=== PATIENT | male | born 1945 | race Caucasian/White ===

== ENCOUNTER → 2018-05-09 | Outpatient (CLI) | payer MEDICARE ==
[2018-05-10 13:52] VITALS: BMI 30.7
== END | disposition home or self-care (01) ==
LOC: LABWHC1 09:48
PROVIDERS: ATTEND Family Medicine
DX: N18.3 Chronic kidney disease, stage 3 (moderate) (principal)
CPT/HCPCS: 97802

== ENCOUNTER → 2019-08-13 | Outpatient (CLI) | payer MEDICARE ==
[2019-08-13 14:51] LABS: Basophils % (A) 0 %; Eosinophils # (A) 0.1 k/uL (0-0.7); Eosinophils % (A) 2 %; Lymphocytes # (A) 1.2 k/uL (1.0-4.8); Lymphocytes % (A) 18 %; MCH 31.1 pg (25.0-35.0); MCHC 32.6 g/dL (31.0-37.0); MCV 95.5 fL (80.0-100.0); Mean Platelet Volume 7.3; Monocytes # (A) 0.4 k/uL (0-1.0); Monocytes % (A) 6 %; Neutrophils # (A) 4.8 k/uL (1.3-7.7); Neutrophils % (A) 72 %; Platelet Count 170 k/uL (150-450); RBC 3.87 m/uL (4.30-5.90); RDW 13.2 % (11.5-15.5); WBC 6.7 k/uL (3.8-10.6)
[2019-08-13 15:05] LABS: Potassium 4.8 mmol/L (3.5-5.1)
== END | disposition home or self-care (01) ==
LOC: LABPAT 13:12
PROVIDERS: ATTEND Surgery
DX: Z01.818 Encounter for other preprocedural examination (principal)
CPT/HCPCS: 36415; 82565; 84132; 84520; 85025

== ENCOUNTER → 2019-08-15 | Day surgery (SDC) | payer MEDICARE ==
[2019-08-13 11:29] VITALS: BMI 28.5
[~2019-08-15] MED LIST: ACETAMINOPHEN TAB 500 MG TAB ONE; ACETAMINOPHEN TAB 500 MG TAB PO ONE; BUPIVACAINE (PF) 0.25% 30 ML VIAL SQ ONE; DEXAMETHASONE SOD PHOSPHATE 10 MG/ML 1 ML VIAL IV ONE; GLYCOPYRROLATE 0.2 MG/ML 2 ML VIAL ONE; HEPARIN SODIUM,PORCINE 5,000 UNIT/ML 1 ML VIAL ONE; HEPARIN SODIUM,PORCINE 5,000 UNIT/ML 1 ML VIAL SQ ONE; HYDROmorphone 0.5 MG/0.5 ML SYRINGE IVP PRN; LACTATED RINGERS 1,000 ML IV SCH; LIDOCAINE 1% (10MG/ML) FOR IV START INTRADERMA PRN; LIDOCAINE 1% INJ 10MG/ML (20 ML MDV) ONE; MINERAL OIL 1 APPLIC/ML OIL TOPICAL ONE; NALOXONE 0.4 MG/ML 1 ML VIAL IV PRN; NEOSTIGMINE 1 MG/ML 10 ML VIAL ONE; ONDANSETRON 4 MG/2 ML VIAL IVP ONE; ONDANSETRON 4 MG/2 ML VIAL ONE; PROPOFOL 10 MG/ML 20 ML VIAL IV ONE; ROCURONIUM BROMIDE 10 MG/ML 5 ML VIAL IV ONE; SODIUM CHLORIDE 0.9% 500 ML 500 ML IV ONE; SUCCINYLCHOLINE CHLORIDE 100 MG/5 ML SYR IV ONE; fentaNYL (PF) 50 MCG/ML 2 ML AMP ONE; traMADol 50 MG TAB PO PRN
[2019-08-15 12:48] VITALS: RESP 16
[2019-08-15 13:05] LABS: Glucose,Whole Blood 119 mg/dL (75-99)
--- NOTE | 2019-08-15 13:46 | P.GSHP ---
History of Present Illness H&P Date: 08/15/19 Chief Complaint: Renal failure 73-year-old male seen in the office last in March. Patient with history of progressive renal failure. He is requesting to initiate peritoneal dialysis as his dialysis technique. Patient with history of previous aortobifemoral bypass. During our previous discussion we discussed that general anesthesia and laparoscopy would be advised prior to catheter placement. Patient recently contacted the office. Spoke with family by phone. Patient scheduled for procedure today. No changes to the history and physical since seen in March. Past Medical History Past Medical History: Coronary Artery Disease (CAD), COPD, Diabetes Mellitus, Hyperlipidemia, Hypertension, Osteoarthritis (OA), Renal Disease, Thyroid Disorder Additional Past Medical History / Comment(s): end stage kidney failure, cyst in kidney, History of Any Multi-Drug Resistant Organisms: None Reported Past Surgical History: Appendectomy, Cholecystectomy, Orthopedic Surgery Additional Past Surgical History / Comment(s): Right carotid endarterectomy, AAA with femoral bypass, andi knee arthroscopy, andi cataracts Past Anesthesia/Blood Transfusion Reactions: Motion Sickness Smoking Status: Current every day smoker - Past Family History Mother Family Medical History: No Reported History Medications and Allergies Home Medications Medication Instructions Recorded Confirmed Type Aspirin 81 mg PO DAILY 01/06/15 08/13/19 History Cholecalciferol [Vitamin D3] 3,000 unit PO DAILY 01/06/15 08/13/19 History Levothyroxine Sodium [Synthroid] 25 mcg PO DAILY 01/06/15 08/13/19 History Carvedilol [Coreg] 3.125 mg PO BID 08/13/19 08/13/19 History Cyclobenzaprine [Flexeril] 10 mg PO DIRECTED PRN 08/13/19 08/13/19 History Ferrous Sulfate [Feosol] 325 mg PO DAILY 08/13/19 08/13/19 History Linagliptin [Tradjenta] 5 mg PO DAILY 08/13/19 08/13/19 History Rosuvastatin [Crestor] 20 mg PO DAILY 08/13/19 08/13/19 History amLODIPine [Norvasc] 10 mg PO DAILY 08/13/19 08/13/19 History rOPINIRole HCL [Requip XL] 4 mg PO DAILY 08/13/19 08/13/19 History Allergies Allergy/AdvReac Type Severity Reaction Status Date / Time Iodinated Contrast Media Allergy Unknown Verified 08/15/19 12:53 [Iodinated Contrast Media - IV Dye] Surgical - Exam Vital Signs Temp Pulse Resp BP Pulse Ox 97.2 F L 57 L 16 166/75 98 08/15/19 12:47 08/15/19 12:47 08/15/19 12:47 08/15/19 12:47 08/15/19 12:47 Physical exam: General: Well-developed, well-nourished HEENT: Normocephalic, sclerae nonicteric Abdomen: Nontender, nondistended, previous midline incision Extremities: No edema Neuro: Alert and oriented Results - Labs Abnormal Lab Results - Last 24 Hours (Table) 08/15/19 Range/Units 13:03 POC Glucose (mg/dL) 119 H (75-99) mg/dL Assessment and Plan (1) Renal failure Narrative/Plan: Will proceed with diagnostic laparoscopy, possible laparoscopic lysis of adhesions, possible peritoneal dialysis catheter placement. Risks of bleeding, infection, poor catheter function, adhesions, hernia, fluid leak, bladder and bowel injury reviewed. He understands and wishes to proceed. Current Visit: Yes Status: Acute Code(s): N19 - UNSPECIFIED KIDNEY FAILURE SNOMED Code(s): 56445345
[2019-08-15 15:30] LABS: Glucose,Whole Blood 147 mg/dL (75-99)
--- NOTE | 2019-08-15 15:33 | P.OP ---
Date of Procedure: 08/15/19 Procedure(s) Performed: PREOPERATIVE DIAGNOSIS: Renal failure, abdominal adhesions POSTOPERATIVE DIAGNOSIS: Same PROCEDURE: Diagnostic laparoscopy, Peritoneal dialysis catheter insertion SURGEON: Radhika EBL: Minimal ANESTHESIA: General COMPLICATIONS: None OPERATIVE PROCEDURE: The patient was placed in the operative table in the supine position. His abdomen was prepped and draped in usual sterile fashion. An optical 5 mm trocar was used to enter the peritoneal cavity in the left upper quadrant. Insufflation took place up to 15 mmHg. The abdomen was inspected. The patient had dense adhesions to the small bowel loops extending from the infraumbilical location cephalad. Some adhesions to the omentum were identified superiorly. The visualized left mid abdomen and pelvis was free of adhesions. It was decided not to lyse adhesions along the midline as they appeared fairly dense and I was concerned about possible iatrogenic enteric injury. The pneumoperitoneum was evacuated. A small vertical incision was made in the left periumbilical location. Dissection down through the subcutaneous tissues took place using electrocautery. The anterior rectus was divided vertically using the scalpel. The rectus was bluntly. The posterior rectus was visualized. An 0 Vicryl pursestring was placed. The laparoscope was used to evaluate the 0 Vicryl pursestring which was not adherent to any peritoneal structures. A small opening in the posterior rectus fascia and peritoneum took place using a Metzenbaum scissors. There were no adhesions to the suture that was placed. The pigtail catheter was advanced into the pelvis over a stylette. No resistance was met. The inner cuff was secured to the fascia using the 0 Vicryl pursestring that was placed. The catheter was tunneled to an exit site in the left lateral lower quadrant. Laparoscopically I once again visualized the course of the catheter which was present in the deep pelvis. The catheter was connected to the 1 L bag of saline and approximated 800 mL of saline was easily introduced into the peritoneal cavity. The fluid was then allowed to evacuate. The majority of the fluid was returned. The anterior rectus fascia was then reapproximated using a running 0 Vicryl stitch. The subcutaneous tissues reprepped using 3-0 Vicryl sutures and the skin using 4-0 Monocryl sutures. The laparoscopic incision site was closed using a single 4-0 Monocryl suture. The outpatient dialysis adapter was applied to the end of the catheter. Skin glue and sterile dressings were then applied. DISPOSITION: Stable to recovery room
[2019-08-15 15:35] VITALS: TEMP 97.5
[2019-08-15 17:31] VITALS: BP 179/74; PULSE 51
== END ==
LOC: OR 12:30
PROVIDERS: ATTEND Surgery
DX: I12.0 Hypertensive chronic kidney disease with stage 5 chronic kidney disease or end stage renal disease (principal); N18.6 End stage renal disease; K66.0 Peritoneal adhesions (postprocedural) (postinfection); I25.10 Atherosclerotic heart disease of native coronary artery without angina pectoris; J44.9 Chronic obstructive pulmonary disease, unspecified; E11.9 Type 2 diabetes mellitus without complications; E78.5 Hyperlipidemia, unspecified; M19.90 Unspecified osteoarthritis, unspecified site; E07.9 Disorder of thyroid, unspecified; N28.1 Cyst of kidney, acquired; I71.4 Abdominal aortic aneurysm, without rupture; I73.9 Peripheral vascular disease, unspecified; F17.210 Nicotine dependence, cigarettes, uncomplicated; E11.22 Type 2 diabetes mellitus with diabetic chronic kidney disease; D64.9 Anemia, unspecified; Z98.890 Other specified postprocedural states; Z90.49 Acquired absence of other specified parts of digestive tract; Z98.41 Cataract extraction status, right eye; Z98.42 Cataract extraction status, left eye; Z87.898 Personal history of other specified conditions; Z79.82 Long term (current) use of aspirin; Z79.890 Hormone replacement therapy; Z79.899 Other long term (current) drug therapy; Z79.84 Long term (current) use of oral hypoglycemic drugs; Z91.041 Radiographic dye allergy status; Z97.2 Presence of dental prosthetic device (complete) (partial)
CPT/HCPCS: 49324; C1752; J1644; J1100; J2710; J0690; J2405; J2001; J3010; J0330; J2704

== ENCOUNTER 2020-01-01 11:34 | Observation (INO) | payer MEDICARE ==
--- NOTE | 2020-01-01 12:35 | ED ---
Fever HPI - General Source: patient, RN notes reviewed Mode of arrival: ambulatory Limitations: no limitations <Jarrett Hoffman - Last Filed: 01/01/20 13:45> <Florecita Diana - Last Filed: 01/04/20 14:33> - General Chief Complaint: Fever Stated Complaint: sent by PCP Time Seen by Provider: 01/01/20 11:45 - History of Present Illness Initial Comments: 74-year-old male presents emergency Department from PCPs office for concerns of possible peritonitis. Patient states that he's been having on and off fevers. Patient had reported fever with Judy's last night. Patient was treated with acetaminophen. Patient has not had his dialysis today as he normally would. Patient has been on peritoneal dialysis since August. He denies any severe cough or cold-like symptoms no sore throat, chest pain or shortness of breath or dysuria no hematuria. Denies any diarrhea constipation. (Jarrett Hoffman) - Related Data Home Medications Medication Instructions Recorded Confirmed Aspirin 81 mg PO DAILY 01/06/15 01/01/20 Levothyroxine Sodium [Synthroid] 25 mcg PO DAILY 01/06/15 01/01/20 Rosuvastatin [Crestor] 20 mg PO DAILY 08/13/19 01/01/20 carvediloL [Coreg] 3.125 mg PO BID 08/13/19 01/01/20 Linagliptin [Tradjenta] 5 mg PO DAILY 01/01/20 01/01/20 Losartan Potassium [Cozaar] 25 mg PO DAILY 01/01/20 01/01/20 Nephro-Mikayla 0.8mg 0.8 mg PO DAILY 01/01/20 01/01/20 Sevelamer Carbonate 800 mg PO DAILY 01/01/20 01/01/20 Varenicline [Chantix Continuing 1 mg PO BID 01/01/20 01/01/20 Pack] Vitamin D Complete 1 tab PO DAILY 01/01/20 01/01/20 amLODIPine [Norvasc] 5 mg PO DAILY 01/01/20 01/01/20 rOPINIRole HCL [rOPINIRole HCL ER] 4 mg PO DAILY 01/01/20 01/01/20 Allergies Allergy/AdvReac Type Severity Reaction Status Date / Time Iodinated Contrast Media Allergy SEE Verified 01/01/20 13:45 [Iodinated Contrast Media - COMMENTS IV Dye] codeine AdvReac Nausea & Verified 01/01/20 13:45 Vomiting Review of Systems ROS Other: All systems not noted in ROS Statement are negative. <Jarrett Hoffman - Last Filed: 01/01/20 13:45> ROS Other: All systems not noted in ROS Statement are negative. <Florecita Diana Luis Antonio - Last Filed: 01/04/20 14:33> ROS Statement: Those systems with pertinent positive or pertinent negative responses have been documented in the HPI. Past Medical History Past Medical History: Coronary Artery Disease (CAD), COPD, Diabetes Mellitus, Hyperlipidemia, Hypertension, Osteoarthritis (OA), Renal Disease, Thyroid Di sorder Additional Past Medical History / Comment(s): end stage kidney failure, cyst in kidney, peritoneal dialysis History of Any Multi-Drug Resistant Organisms: None Reported Past Surgical History: Appendectomy, Cholecystectomy, Orthopedic Surgery Additional Past Surgical History / Comment(s): Right carotid endarterectomy, AAA with femoral bypass, andi knee arthroscopy, andi cataracts Past Anesthesia/Blood Transfusion Reactions: Motion Sickness Past Psychological History: No Psychological Hx Reported Smoking Status: Former smoker Past Alcohol Use History: None Reported Past Drug Use History: None Reported - Past Family History Mother Family Medical History: No Reported History <Jarrett Hoffman - Last Filed: 01/01/20 13:45> General Exam Limitations: no limitations General appearance: alert, in no apparent distress Head exam: Present: atraumatic, normocephalic, normal inspection Eye exam: Present: normal appearance, PERRL, EOMI. Absent: scleral icterus, conjunctival injection, periorbital swelling ENT exam: Present: normal exam, mucous membranes moist Neck exam: Present: normal inspection, full ROM. Absent: tenderness, meningismus, lymphadenopathy Respiratory exam: Present: normal lung sounds bilaterally. Absent: respiratory distress, wheezes, rales, rhonchi, stridor Cardiovascular Exam: Present: regular rate, normal rhythm, normal heart sounds. Absent: systolic murmur, diastolic murmur, rubs, gallop, clicks GI/Abdominal exam: Present: soft, distended, normal bowel sounds. Absent: tenderness, guarding, rebound, rigid Back exam: Absent: CVA tenderness (R), CVA tenderness (L) Skin exam: Present: warm, dry, intact, normal color. Absent: rash <Dedoe,Jarrett M - Last Filed: 01/01/20 13:45> Course Vital Signs 01/01/20 01/01/20 01/01/20 11:38 12:41 13:41 Temperature 97.1 F L Pulse Rate 68 68 Respiratory 18 18 18 Rate Blood Pressure 132/60 157/57 O2 Sat by Pulse 99 96 Oximetry 01/01/20 01/01/20 01/01/20 14:41 15:00 16:00 Temperature Pulse Rate 62 62 Respiratory 18 18 18 Rate Blood Pressure 154/58 O2 Sat by Pulse 95 95 95 Oximetry 01/01/20 01/01/20 01/01/20 17:00 17:23 18:00 Temperature 98.8 F 98.8 F 98.8 F Pulse Rate 68 68 68 Respiratory 18 18 18 Rate Blood Pressure 158/80 158/80 O2 Sat by Pulse 98 98 98 Oximetry Medical Decision Making - Lab Data Result diagrams: 01/01/20 12:31 01/01/20 12:31 <Jarrett Hoffman - Last Filed: 01/01/20 13:45> - Lab Data Result diagrams: 01/01/20 12:31 01/01/20 12:31 <Florecita Diana - Last Filed: 01/04/20 14:33> - Medical Decision Making 74-year-old male presented for intermittent fevers. Patient had fever and Reiger's last night. There is concern for possible spontaneous bacterial peritonitis. Patient be admitted for urgent dialysis, pending cultures and was started on Rocephin. (Jarrett Hoffman) I was available for consultation in the emergency department. The history and physical exam were done by the midlevel provider. I was consulted for this patients care. I reviewed the case with the midlevel provider and based on their presentation of the patient, I agree with the assessment, medical decision making and plan of care as documented. Chart was dictated using [employer] dictation software. Attempts were made to correct any dictation errors however some typographical errors may persist. Patient was seen during a national state of emergency due to the Covid-19 pandemic. (Florecita Diana) - Lab Data Lab Results 01/01/20 01/01/20 01/01/20 Range/Units 12:22 12:31 12:31 WBC 9.9 (3.8-10.6) k/uL RBC 3.51 L (4.30-5.90) m/uL Hgb 11.3 L (13.0-17.5) gm/dL Hct 33.2 L (39.0-53.0) % MCV 94.6 (80.0-100.0) fL MCH 32.2 (25.0-35.0) pg MCHC 34.0 (31.0-37.0) g/dL RDW 12.7 (11.5-15.5) % Plt Count 185 (150-450) k/uL MPV 7.2 Neutrophils % 80 % Lymphocytes % 10 % Monocytes % 6 % Eosinophils % 1 % Basophils % 1 % Neutrophils # 7.9 H (1.3-7.7) k/uL Lymphocytes # 1.0 (1.0-4.8) k/uL Monocytes # 0.6 (0-1.0) k/uL Eosinophils # 0.1 (0-0.7) k/uL Basophils # 0.1 (0-0.2) k/uL PT 11.3 (9.0-12.0) sec INR 1.1 (<1.2) APTT 25.3 (22.0-30.0) sec Sodium (137-145) mmol/L Potassium (3.5-5.1) mmol/L Chloride (98-107) mmol/L Carbon Dioxide (22-30) mmol/L Anion Gap mmol/L BUN (9-20) mg/dL Creatinine (0.66-1.25) mg/dL Est GFR (CKD-EPI)AfAm (>60 ml/min/1.73 sqM) Est GFR (CKD-EPI)NonAf (>60 ml/min/1.73 sqM) Glucose (74-99) mg/dL Plasma Lactic Acid Eder (0.7-2.0) mmol/L Calcium (8.4-10.2) mg/dL Total Bilirubin (0.2-1.3) mg/dL AST (17-59) U/L ALT (4-49) U/L Alkaline Phosphatase (38-126) U/L Total Protein (6.3-8.2) g/dL Albumin (3.5-5.0) g/dL Amylase (30-110) U/L Lipase (23-300) U/L Urine Color Yellow Urine Appearance Clear (Clear) Urine pH 5.5 (5.0-8.0) Ur Specific Aiken 1.013 (1.001-1.035) Urine Protein 2+ H (Negative) Urine Glucose (UA) Negative (Negative) Urine Ketones Negative (Negative) Urine Blood Negative (Negative) Urine Nitrite Negative (Negative) Urine Bilirubin Negative (Negative) Urine Urobilinogen <2.0 (<2.0) mg/dL Ur Leukocyte Esterase Negative (Negative) Urine RBC 1 (0-5) /hpf Urine WBC 1 (0-5) /hpf Fluid Source Fluid Color Fluid Appearance Fluid RBC /uL Fluid Nucleated Cells /uL 01/01/20 01/01/20 01/01/20 Range/Units 12:31 12:31 18:00 WBC (3.8-10.6) k/uL RBC (4.30-5.90) m/uL Hgb (13.0-17.5) gm/dL Hct (39.0-53.0) % MCV (80.0-100.0) fL MCH (25.0-35.0) pg MCHC (31.0-37.0) g/dL RDW (11.5-15.5) % Plt Count (150-450) k/uL MPV Neutrophils % % Lymphocytes % % Monocytes % % Eosinophils % % Basophils % % Neutrophils # (1.3-7.7) k/uL Lymphocytes # (1.0-4.8) k/uL Monocytes # (0-1.0) k/uL Eosinophils # (0-0.7) k/uL Basophils # (0-0.2) k/uL PT (9.0-12.0) sec INR (<1.2) APTT (22.0-30.0) sec Sodium 140 (137-145) mmol/L Potassium 4.2 (3.5-5.1) mmol/L Chloride 102 (98-107) mmol/L Carbon Dioxide 25 (22-30) mmol/L Anion Gap 13 mmol/L BUN 75 H (9-20) mg/dL Creatinine 7.29 H* (0.66-1.25) mg/dL Est GFR (CKD-EPI)AfAm 8 (>60 ml/min/1.73 sqM) Est GFR (CKD-EPI)NonAf 7 (>60 ml/min/1.73 sqM) Glucose 97 (74-99) mg/dL Plasma Lactic Acid Eder 1.3 (0.7-2.0) mmol/L Calcium 8.8 (8.4-10.2) mg/dL Total Bilirubin 0.7 (0.2-1.3) mg/dL AST 26 (17-59) U/L ALT 33 (4-49) U/L Alkaline Phosphatase 71 (38-126) U/L Total Protein 7.0 (6.3-8.2) g/dL Albumin 4.1 (3.5-5.0) g/dL Amylase 72 (30-110) U/L Lipase 125 (23-300) U/L Urine Color Urine Appearance (Clear) Urine pH (5.0-8.0) Ur Specific Aiken (1.001-1.035) Urine Protein (Negative) Urine Glucose (UA) (Negative) Urine Ketones (Negative) Urine Blood (Negative) Urine Nitrite (Negative) Urine Bilirubin (Negative) Urine Urobilinogen (<2.0) mg/dL Ur Leukocyte Esterase (Negative) Urine RBC (0-5) /hpf Urine WBC (0-5) /hpf Fluid Source Peritoneal Fluid Color Yellow Fluid Appearance Clear Fluid RBC 7 /uL Fluid Nucleated Cells 6 /uL Disposition Time of Disposition: 13:46 <Jarrett Hoffman - Last Filed: 01/01/20 13:45> <Florecita Diana - Last Filed: 01/04/20 14:33> Clinical Impression: Peritoneal dialysis status, Spontaneous bacterial peritonitis, Fever Disposition: ADMITTED IP TO THIS HOSP Condition: Fair
[2020-01-01 12:43] LABS: Basophils # (A) 0.1 k/uL (0-0.2); Basophils % (A) 1 %; Eosinophils # (A) 0.1 k/uL (0-0.7); Eosinophils % (A) 1 %; HCT 33.2 % (39.0-53.0); HGB 11.3 gm/dL (13.0-17.5); Lymphocytes % (A) 10 %; MCH 32.2 pg (25.0-35.0); MCV 94.6 fL (80.0-100.0); Mean Platelet Volume 7.2; Monocytes # (A) 0.6 k/uL (0-1.0); Monocytes % (A) 6 %; Neutrophils # (A) 7.9 k/uL (1.3-7.7); Neutrophils % (A) 80 %; Platelet Count 185 k/uL (150-450); RBC 3.51 m/uL (4.30-5.90); RDW 12.7 % (11.5-15.5); WBC 9.9 k/uL (3.8-10.6)
[2020-01-01 12:54] LABS: Albumin 4.1 g/dL (3.5-5.0); Calcium 8.8 mg/dL (8.4-10.2); Potassium 4.2 mmol/L (3.5-5.1); Total Bilirubin 0.7 mg/dL (0.2-1.3)
--- NOTE | 2020-01-01 12:55 | XR ---
EXAMINATION TYPE: XR chest 2V DATE OF EXAM: 01/01/2020 COMPARISON: NONE HISTORY: Shortness of breath TECHNIQUE: Frontal and lateral views of the chest are obtained. FINDINGS: Scattered senescent parenchymal changes noted. Hyperinflation compatible with COPD. No evidence for infiltrate. No evidence for atelectasis. Heart size is stable. Mediastinal structures are stable and grossly unremarkable. No evidence for hilar prominence. Degenerative changes dorsal spine. IMPRESSION: 1. No evidence for acute pulmonary disease.
[2020-01-01 12:56] LABS: INR 1.1 (<1.2); Partial Thromboplastin Time 25.3 sec (22.0-30.0); Prothrombin Time 11.3 sec (9.0-12.0)
[2020-01-01] MEDS ORDERED: ONDANSETRON 4 MG/2 ML VIAL IVP PRN (13:46)
[2020-01-01] MEDS ORDERED: ACETAMINOPHEN TAB 325 MG TAB PO PRN (13:46)
[2020-01-01] MEDS ORDERED: NALOXONE 0.4 MG/ML 1 ML VIAL IV PRN (13:46)
[2020-01-01] MEDS ORDERED: DIALYSIS (PERIT 1.5%) 2,000 ML 30 G/2,000 ML BAG INTRAPERIT SCH ×2 (16:00→23:00)
[2020-01-01] MEDS ORDERED: CEFTAZIDIME INTRAPERIT ONE (17:00)
[2020-01-01] MEDS ORDERED: [UNRECOGNIZED DRUG - OTHER] INTRAPERIT ONE (17:00)
[2020-01-01] MEDS ORDERED: VANCOMYCIN INTRAPERIT ONE (17:00)
[2020-01-01 19:20] LABS: Appearance,BF Clear; Color,BF Yellow; Nucleated Cells, Body Fluid 6 /uL; RBC, Body Fluid 7 /uL
--- NOTE | 2020-01-01 23:13 | P.HPIM ---
History of Present Illness H&P Date: 01/01/20 Chief Complaint: Chills History of presenting complaint: This is a pleasant [address] Satish Wilson. Follows with student nurse Dr. Quiros. Chronic stable medical conditions include coronary artery disease, COPD, diabetes, hypertension, hyperlipidemia, hypothyroid, end-stage kidney disease from polycystic kidney disease on peritoneal dialysis. Patient is a smoker. Patient been on peritoneal dialysis for last 5 months. Patient been having fever or chills. Last 2 weeks. Denies any respiratory symptoms. No headaches. No urinary symptoms. No diarrhea. No abdominal pain. Denies any change of dialysate color. There is a concern about peritoneal dialysis has family doctor sent. Patient to the ER. Fluid was sent off for Gram stain and culture. Patient is empirically given a dose of vancomycin and ceftriaxone. No pain at the peritoneal dialysis catheter site. No drainage. Patient's had some diarrhea settled down. No cough. Review of systems: GEN.: Fever and chills EYES: None HEENT: None NECK: None RESPIRATORY: None CARDIOVASCULAR: None GASTROINTESTINAL: None GENITOURINARY: None MUSCULOSKELETAL: None LYMPHATICS: None HEMATOLOGICAL: None PSYCHIATRY: None NEUROLOGICAL: None Past medical history to include: Coronary artery disease, COPD, diabetes, hyperlipidemia, hypertension, osteoarthritis, end-stage kidney disease due to polycystic kidney disease on peritoneal dialysis Social history: . No alcohol. Patient smoked about half a pack a day for over 50 years stopped about 45 months ago. Family history: Reviewed, noncontributory to presentation Physical examination: VITAL SIGNS: 97.1, 68, 18, 132/60, 99% room air GENERAL: BMI 29.8, laying in bed, awake. EYES: Pupils equal. Conjunctiva normal. HEENT: External appearance of nose and ears normal, oral cavity grossly normal. NECK: JVD not raised; masses not palpable. HEART: First and second heart sounds are normal; no edema. LUNGS: Respiratory rate normal; clear to auscultation. ABDOMEN: Soft, nontender, liver spleen not palpable, no masses palpable, [address] Site does not appear infected.. PSYCH: Alert and oriented x3; mood and affect normal. NEUROLOGICAL: Cranial nerves grossly intact; no facial asymmetry, power and sensation grossly intact. LYMPHATICS: No lymph nodes palpable in the axilla and neck INVESTIGATIONS, reviewed in the clinical context: White count 9.9 hemoglobin 11.3 platelets 185 potassium 4.2 bun 35 creatinine 7.29 Peritoneal dialysate fluid-RBC 7 nucleated cells 6 Chest x-ray film personally reviewed by me-prominent pulmonary artery no obvious infiltrate Assessment: -This is a patient's had fever and chills for close to 2 weeks. Denies any obvious respiratory or urinary symptoms. Patient dialysate is rather clear. No infections evidence of the site of the PD catheter. Patient had some loose stoo ls. That also is better. No abdominal pain. Patient may be having a viral episode. -COPD in a current smoker -Diabetes mellitus type 2 -Hyperlipidemia -Essential hypertension -Primary osteoarthritis -Hypothyroid -End-stage kidney disease on peritoneal dialysis from underlying polycystic kidney disease - Plan: Patient name. He did receive ceftriaxone and vancomycin the ER. Hold off any further antibiotics. Home medications to be resumed. Nephrology consulted in view with the [facility] dialysis. Care was discussed with the patient question also. Nicotine patch. The unlikely but we'll send off an influenza type A type B and COVID 19 PCR testing. Past Medical History Past Medical History: Coronary Artery Disease (CAD), COPD, Diabetes Mellitus, H yperlipidemia, Hypertension, Osteoarthritis (OA), Renal Disease, Thyroid Disorder Additional Past Medical History / Comment(s): end stage kidney failure, cyst in kidney, peritoneal dialysis History of Any Multi-Drug Resistant Organisms: None Reported Past Surgical History: Appendectomy, Cholecystectomy, Orthopedic Surgery Additional Past Surgical History / Comment(s): Right carotid endarterectomy, AAA with femoral bypass, andi knee arthroscopy, andi cataracts Past Anesthesia/Blood Transfusion Reactions: Motion Sickness Past Psychological History: No Psychological Hx Reported Smoking Status: Former smoker Past Alcohol Use History: None Reported Additional Past Alcohol Use History / Comment(s): smokes 1/2 PPD, has smoked over 50 yrs, quit August 2019 Past Drug Use History: None Reported - Past Family History Mother Family Medical History: No Reported History Medications and Allergies Home Medications Medication Instructions Recorded Confirmed Type Aspirin 81 mg PO DAILY 01/06/15 01/01/20 History Levothyroxine Sodium [Synthroid] 25 mcg PO DAILY 01/06/15 01/01/20 History Rosuvastatin [Crestor] 20 mg PO DAILY 08/13/19 01/01/20 History carvediloL [Coreg] 3.125 mg PO BID 08/13/19 01/01/20 History Linagliptin [Tradjenta] 5 mg PO DAILY 01/01/20 01/01/20 History Losartan Potassium [Cozaar] 25 mg PO DAILY 01/01/20 01/01/20 History Nephro-Mikayla 0.8mg 0.8 mg PO DAILY 01/01/20 01/01/20 History Sevelamer Carbonate 800 mg PO DAILY 01/01/20 01/01/20 History Varenicline [Chantix Continuing 1 mg PO BID 01/01/20 01/01/20 History Pack] Vitamin D Complete 1 tab PO DAILY 01/01/20 01/01/20 History amLODIPine [Norvasc] 5 mg PO DAILY 01/01/20 01/01/20 History rOPINIRole HCL [rOPINIRole HCL ER] 4 mg PO DAILY 01/01/20 01/01/20 History Allergies Allergy/AdvReac Type Severity Reaction Status Date / Time Iodinated Contrast Media Allergy SEE Verified 01/01/20 13:45 [Iodinated Contrast Media - COMMENTS IV Dye] codeine AdvReac Nausea & Verified 01/01/20 13:45 Vomiting Physical Exam Vitals: Vital Signs Temp Pulse Pulse Resp BP BP Pulse Ox 01/01/20 22:48 98.0 F 61 16 184/79 95 01/01/20 18:00 98.8 F 68 18 158/80 98 01/01/20 17:23 98.8 F 68 18 158/80 98 01/01/20 17:00 98.8 F 68 18 98 01/01/20 16:00 18 95 01/01/20 15:00 62 18 95 01/01/20 14:41 62 18 154/58 95 01/01/20 13:41 68 18 157/57 96 01/01/20 12:41 18 01/01/20 11:38 97.1 F L 68 18 132/60 99 Intake and Output 01/01/20 01/01/20 01/02/20 14:59 22:59 06:59 Other: Weight 99.79 kg 99.79 kg Results CBC & Chem 7: 01/01/20 12:31 01/01/20 12:31 Labs: Abnormal Lab Results - Last 24 Hours (Table) 01/01/20 01/01/20 Range/Units 12:31 12:31 RBC 3.51 L (4.30-5.90) m/uL Hgb 11.3 L (13.0-17.5) gm/dL Hct 33.2 L (39.0-53.0) % Neutrophils # 7.9 H (1.3-7.7) k/uL BUN 75 H (9-20) mg/dL Creatinine 7.29 H* (0.66-1.25) mg/dL Thrombosis Risk Factor Assmnt - Choose All That Apply Any of the Below Risk Factors Present?: Yes Each Factor Represents 1 point: Abnormal pulmonary function (COPD), Obesity (BMI >25) Other Risk Factors: Yes Each Risk Factor Represents 2 Points: Age 61-74 years Other congenital or acquired thrombophilia - If yes, enter type in comment: No Thrombosis Risk Factor Assessment Total Risk Factor Score: 4 Thrombosis Risk Factor Assessment Level: Moderate Risk
[2020-01-01] MEDS: VARENICLINE 1 MG TAB PO SCH (23:38)
[2020-01-01] MEDS: carvediloL 3.125 MG TAB PO SCH (23:41)
[2020-01-02 01:49] LABS: SARS-CoV-2 RNA Rapid Abbott Not Detected (Not Detectd)
[2020-01-02] MEDS: LEVOTHYROXINE 25 MCG TAB PO SCH (05:42)
[2020-01-02] MEDS: DIALYSIS (PERIT 1.5%) 2,000 ML 30 G/2,000 ML BAG INTRAPERIT SCH ×4 (05:51→23:47)
[2020-01-02] MEDS: amLODIPine 5 MG TAB PO SCH (05:59)
[2020-01-02 06:17] LABS: Appearance,Urine Clear (Clear); Bilirubin,Urine Negative (Negative); Blood,Urine Negative (Negative); Color,Urine Yellow; Glucose,Urine (UA) Negative (Negative); Ketones,Urine Negative (Negative); Leukocyte Esterase,Urine Negative (Negative); Nitrite,Urine Negative (Negative); PH, Urine 5.5 (5.0-8.0); Protein,Urine 2+ (Negative); RBC,Urine 1 /hpf (0-5); Specific Gravity,Urine 1.013 (1.001-1.035); Urobilinogen,Urine <2.0 mg/dL (<2.0); WBC,Urine 1 /hpf (0-5)
[2020-01-02 07:17] LABS: Glucose,Whole Blood 127 mg/dL (75-99)
[2020-01-02] MEDS: carvediloL 3.125 MG TAB PO SCH ×2 (08:00→17:08)
[2020-01-02] MEDS: ATORVASTATIN 40 MG TAB PO SCH (08:01)
[2020-01-02] MEDS: ASPIRIN 81 MG PO SCH (08:01)
[2020-01-02] MEDS: LOSARTAN 25 MG TAB PO SCH (08:01)
[2020-01-02] MEDS: SEVELAMER 800 MG TAB PO SCH (08:02)
[2020-01-02] MEDS: VARENICLINE 1 MG TAB PO SCH ×2 (08:02→21:16)
[2020-01-02] MEDS: LINAGLIPTIN 5 MG TABLET PO SCH (08:03)
[2020-01-02] MEDS ORDERED: [UNRECOGNIZED DRUG - OTHER] PO SCH (09:00)
[2020-01-02] MEDS ORDERED: NEPHRO VITE 0.8 MG PO SCH (09:00)
[2020-01-02 11:14] LABS: Glucose,Whole Blood 116 mg/dL (75-99)
--- NOTE | 2020-01-02 11:28 | P.NPCON ---
History of Present Illness - Reason for Consult end stage renal disease - History of Present Illness Reason for consultation: End-stage renal disease History of present illness: Patient is a 74-year-old male seen in consultation for end-stage renal disease. He is maintained on peritoneal dialysis. Patient presented to the hospital due to fever. He denies cloudy dialysate. He denies any abdominal pain. No constipation. He denies any cough. No shortness of breath. His highest temperature this admission temperature has been 99.1F. However at home he states his blood pressure was as high as 101F about 2 days ago. He does make good amount of urine. Denies any hematuria or dysuria. Chest x-ray was clear. Blood pressure a little on the higher side. Patient's dialysate cell count was 6. Coronavirus screen was negative. Influenza was negative as well. He is awake and alert. No active complaints. Vital signs are stable. General: The patient appeared well nourished and normally developed. HEENT: Head exam is unremarkable. Neck is without jugular venous distension. LUNGS: Breath sounds decreased. HEART: Rate and Rhythm are regular. ABDOMEN: Soft, nontender. EXTREMITITES: No edema. Past Medical History Past Medical History: Coronary Artery Disease (CAD), COPD, Diabetes Mellitus, Hyperlipidemia, Hypertension, Osteoarthritis (OA), Renal Disease, Thyroid Disorder Additional Past Medical History / Comment(s): end stage kidney failure, cyst in kidney, peritoneal dialysis History of Any Multi-Drug Resistant Organisms: None Reported Past Surgical History: Appendectomy, Cholecystectomy, Orthopedic Surgery Additional Past Surgical History / Comment(s): Right carotid endarterectomy, AAA with femoral bypass, andi knee arthroscopy, andi cataracts Past Anesthesia/Blood Transfusion Reactions: Motion Sickness Past Psychological History: No Psychological Hx Reported Smoking Status: Former smoker Past Alcohol Use History: None Reported Additional Past Alcohol Use History / Comment(s): smokes 1/2 PPD, has smoked over 50 yrs, quit August 2019 Past Drug Use History: None Reported - Past Family History Mother Family Medical History: No Reported History Medications and Allergies Home Medications Medication Instructions Recorded Confirmed Type Aspirin 81 mg PO DAILY 01/06/15 01/01/20 History Levothyroxine Sodium [Synthroid] 25 mcg PO DAILY 01/06/15 01/01/20 History Rosuvastatin [Crestor] 20 mg PO DAILY 08/13/19 01/01/20 History carvediloL [Coreg] 3.125 mg PO BID 08/13/19 01/01/20 History Linagliptin [Tradjenta] 5 mg PO DAILY 01/01/20 01/01/20 History Losartan Potassium [Cozaar] 25 mg PO DAILY 01/01/20 01/01/20 History Nephro-Mikayla 0.8mg 0.8 mg PO DAILY 01/01/20 01/01/20 History Sevelamer Carbonate 800 mg PO DAILY 01/01/20 01/01/20 History Varenicline [Chantix Continuing 1 mg PO BID 01/01/20 01/01/20 History Pack] Vitamin D Complete 1 tab PO DAILY 01/01/20 01/01/20 History amLODIPine [Norvasc] 5 mg PO DAILY 01/01/20 01/01/20 History rOPINIRole HCL [rOPINIRole HCL ER] 4 mg PO DAILY 01/01/20 01/01/20 History Allergies Allergy/AdvReac Type Severity Reaction Status Date / Time Iodinated Contrast Media Allergy SEE Verified 01/01/20 13:45 [Iodinated Contrast Media - COMMENTS IV Dye] codeine AdvReac Nausea & Verified 01/01/20 13:45 Vomiting Physical Exam Vitals: Vital Signs Temp Pulse Pulse Resp BP BP Pulse Ox 01/02/20 06:00 96.4 F L 58 L 62 18 173/76 143/68 93 L 01/01/20 23:56 98.0 F 61 16 184/79 95 01/01/20 22:48 98.0 F 61 16 184/79 95 01/01/20 18:00 98.8 F 68 18 158/80 98 01/01/20 17:23 98.8 F 68 18 158/80 98 01/01/20 17:00 98.8 F 68 18 98 01/01/20 16:00 18 95 01/01/20 15:00 62 18 95 01/01/20 14:41 62 18 154/58 95 01/01/20 13:41 68 18 157/57 96 01/01/20 12:41 18 01/01/20 11:38 97.1 F L 68 18 132/60 99 Intake and Output 01/01/20 01/02/20 01/02/20 22:59 06:59 14:59 Output Total 200 Balance -200 Output: Urine 200 Other: Weight 99.79 kg Results - Lab Results Most recent lab results Calcium 8.8 mg/dL (8.4-10.2) 01/01/20 12:31 01/01/20 12:31 01/01/20 12:31 Assessment and Plan Plan: Assessment: 1. End-stage renal disease maintained on peritoneal dialysis. 2. Fever. Unclear cause. No evidence of peritonitis. He did receive int raperitoneal vancomycin and Fortaz on December 31. 3. Hypertension with chronic kidney disease. 4. Diabetes mellitus. 5. Chronic kidney disease mineral bone disease maintained on Renvela. Plan: Maintain 2 L exchanges every 6 hours with 1.5% dextrose solution. No need for intraperitoneal antibiotics. Follow-up cultures. I will check urine culture as well. Home antihypertensives have been resumed. Thank you for the consultation. I will continue to follow patient with you during his hospital stay.
--- NOTE | 2020-01-02 15:44 | CT ---
EXAMINATION TYPE: CT abdomen pelvis wo con DATE OF EXAM: 01/02/2020 COMPARISON: None INDICATION: Fever, renal disease DLP: 1096 mGycm, Automated exposure control for dose reduction was used. CONTRAST: 0 mL of Isovue 300. Study performed without Oral Contrast TECHNIQUE: Axial images were obtained from above the diaphragm to the pubic rami in the axial plane a t 5 mm thick sections. Reconstructed images are reviewed on the computer in the coronal plane. FINDINGS: Limited CT sections are obtained the lung bases. There is an infiltrate in the lower left lung base. A nodule in the posterior left lung base measuring 2.0 cm may be present. Adjacent 0.6 cm nodule may be present. CT ABDOMEN: Fluid is present adjacent to the liver and the spleen and within the pelvis. Peritoneal d ialysis catheter. Liver: Normal Spleen: Normal Pancreas: Normal Adrenal glands: The adrenal glands are normal. Gallbladder: Surgically absent Kidneys: Multiple cysts or bilateral kidneys. The largest on the left is anterior mid measuring 6.7 c m in -4 Hounsfield units. The largest on the right measures 4.8 cm and 4 Hounsfield units. Bilateral renal artery calcifications are present. No hydronephrosis is evident. Aorta: Vascular calcification is within the aorta. Stent is within the aorta. Iliac bypass grafts ar e evident. Inferior vena cava: Normal. CT PELVIS: Loops of bowel within the abdomen and pelvis are normal. The study is without oral contrast limit ing bowel evaluation. Diverticular changes are within the sigmoid colon. No acute diverticulitis is e vident. Appendix: Not identified. No suspicious dilated tubular structure or inflammatory changes evident Urinary bladder: Normal. Genitourinary structures: Prostate is prominent Osseous structures: No suspicious lytic or sclerotic lesions are evident. Facet degenerative changes are present L5-S1 especially on the right. Some degenerative disc changes present L5-S1. Sacroiliac j oint degenerative changes are present. IMPRESSIONS: 1. Fluid within the abdomen. Patient has a peritoneal dialysis catheter present. 2. Diverticulosis without acute diverticulitis. 3. Left basilar atelectasis and/or masses/nodules. 4. Polycystic kidney disease
[2020-01-02 16:59] LABS: Appearance,Urine Clear (Clear); Bilirubin,Urine Negative (Negative); Blood,Urine Negative (Negative); Color,Urine Yellow; Glucose,Urine (UA) Trace (Negative); Ketones,Urine Negative (Negative); Leukocyte Esterase,Urine Negative (Negative); Mucus,Urine Rare /hpf; Nitrite,Urine Negative (Negative); Protein,Urine 2+ (Negative); RBC,Urine 1 /hpf (0-5); Specific Gravity,Urine 1.013 (1.001-1.035); Urobilinogen,Urine <2.0 mg/dL (<2.0); WBC,Urine 1 /hpf (0-5)
[2020-01-02 17:04] LABS: Glucose,Whole Blood 151 mg/dL (75-99)
[2020-01-02 20:27] LABS: Glucose,Whole Blood 126 mg/dL (75-99)
--- NOTE | 2020-01-02 23:52 | P.PN ---
Progress Note - Text Progress Note Date: 01/02/20 Chief Complaint: Chills History of presenting complaint: This is a pleasant [address] Satish Wilson. Follows with cake puncher Dr. Quiros. Chronic stable medical conditions include coronary artery disease, COPD, diabetes, hypertension, hyperlipidemia, hypothyroid, end-stage kidney disease from polycystic kidney disease on peritoneal dialysis. Patient is a smoker. Patient been on peritoneal dialysis for last 5 months. Patient been having fever or chills. Last 2 weeks. Denies any respiratory symptoms. No headaches. No urinary symptoms. No diarrhea. No abdominal pain. Denies any change of dialysate color. There is a concern about peritoneal dialysis has family doctor sent. Patient to the ER. Fluid was sent off for Gram stain and culture. Patient is empirically given a dose of vancomycin and ceftriaxone. No pain at the peritoneal dialysis catheter site. No drainage. Patient's had some diarrhea settled down. No cough. Today-patient continues to feel well. It is felt that patient had a viral syndrome. Again no respiratory symptoms no urinary symptoms. Fair appetite. Review of systems: Was done for constitutional, cardiovascular, GI, pulmonary. relevant finding as above Active Medications Acetaminophen (Acetaminophen Tab 325 Mg Tab) 650 mg PO Q6HR PRN PRN Reason: Mild Pain or Fever > 100.5 Last Admin: 01/01/20 15:03 Dose: 650 mg Documented by: Amlodipine Besylate (Amlodipine 5 Mg Tab) 5 mg PO DAILY [facility] Last Admin: 01/02/20 05:59 Dose: 5 mg Documented by: Aspirin (Aspirin 81 Mg) 81 mg PO DAILY [facility] Last Admin: 01/02/20 08:01 Dose: 81 mg Documented by: Atorvastatin Calcium (Atorvastatin 40 Mg Tab) 40 mg PO DAILY [facility] Last Admin: 01/02/20 08:01 Dose: 40 mg Documented by: Carvedilol (Carvedilol 3.125 Mg Tab) 3.125 mg PO BID-W/MEALS [facility] Last Admin: 01/02/20 17:08 Dose: 3.125 mg Documented by: Peritoneal Dialysis Solution (Delflex With 1.5% Dextrose (2,000 Ml)) 30 g in 2,000 mls @ 0 mls/hr INTRAPERIT Q6HR [facility]; Protocol Last Admin: 01/02/20 23:47 Dose: 1 mls/hr Documented by: Levothyroxine Sodium (Levothyroxine 25 Mcg Tab) 25 mcg PO DAILY@0630 [facility] Last Admin: 01/02/20 05:42 Dose: 25 mcg Documented by: Linagliptin (Linagliptin 5 Mg Tablet) 5 mg PO DAILY [facility] Last Admin: 01/02/20 08:03 Dose: 5 mg Documented by: Losartan Potassium (Losartan 25 Mg Tab) 25 mg PO DAILY [facility] Last Admin: 01/02/20 08:01 Dose: 25 mg Documented by: Naloxone HCl (Naloxone 0.4 Mg/Ml 1 Ml Vial) 0.2 mg IV Q2M PRN PRN Reason: Opioid Reversal Ondansetron HCl (Ondansetron 4 Mg/2 Ml Vial) 4 mg IVP Q8HR PRN PRN Reason: Nausea And Vomiting Ropinirole HCl (Ropinirole Hcl 0.25 Mg Tab) 1.25 mg PO TID [facility] Last Admin: 01/02/20 21:20 Dose: 1.25 mg Documented by: Sevelamer Carbonate (Sevelamer 800 Mg Tab) 800 mg PO DAILY [facility] Last Admin: 01/02/20 08:02 Dose: 800 mg Documented by: Varenicline (Varenicline 1 Mg Tab) 1 mg PO BID [facility] Last Admin: 01/02/20 21:16 Dose: Not Given Documented by: VITAL SIGNS: 98.5, 61, 18, 116/72, 96% room air GENERAL: BMI 29.8, sitting at the edge bed, comfortable EYES: Pupils equal. Conjunctiva normal. HEENT: External appearance of nose and ears normal, oral cavity grossly normal. NECK: JVD not raised; masses not palpable. HEART: First and second heart sounds are normal; no edema. LUNGS: Respiratory rate normal; clear to auscultation. ABDOMEN: Soft, nontender, liver spleen not palpable, no masses palpable, [address] Site does not appear infected.. PSYCH: Alert and oriented x3; mood and affect normal. INVESTIGATIONS, reviewed in the clinical context: White count 9.9 hemoglobin 11.3 platelets 185 potassium 4.2 bun 35 creatinine 7.29 Peritoneal dialysate fluid-RBC 7 nucleated cells 6 Chest x-ray film personally reviewed by me-prominent pulmonary artery no obvious infiltrate COVID 19 P/Cr-not detected Influenza type A type B both negative. Assessment: -This is a patient's had fever and chills for close to 2 weeks. Denies any obvious respiratory or urinary symptoms. Patient dialysate is rather clear. No infections evidence of the site of the PD catheter. Patient had some loose stools. That also is better. No abdominal pain. Patient may be having a viral episode. -COPD in a current smoker -Diabetes mellitus type 2 -Hyperlipidemia -Essential hypertension -Primary osteoarthritis -Hypothyroid -End-stage kidney disease on peritoneal dialysis from underlying polycystic kidney disease - Plan: We'll watch patient and the 24 hours. If remains stable then we will discharged. Updated patient's 2 daughters
[2020-01-03] MEDS: LEVOTHYROXINE 25 MCG TAB PO SCH (05:28)
[2020-01-03] MEDS: DIALYSIS (PERIT 1.5%) 2,000 ML 30 G/2,000 ML BAG INTRAPERIT SCH ×2 (05:31→12:06)
[2020-01-03 07:08] LABS: Glucose,Whole Blood 123 mg/dL (75-99)
[2020-01-03] MEDS: ASPIRIN 81 MG PO SCH (08:20)
[2020-01-03] MEDS: ATORVASTATIN 40 MG TAB PO SCH (08:20)
[2020-01-03] MEDS: amLODIPine 5 MG TAB PO SCH (08:20)
[2020-01-03] MEDS: carvediloL 3.125 MG TAB PO SCH (08:20)
[2020-01-03] MEDS: SEVELAMER 800 MG TAB PO SCH (08:21)
[2020-01-03] MEDS: VARENICLINE 1 MG TAB PO SCH (08:21)
[2020-01-03] MEDS: LINAGLIPTIN 5 MG TABLET PO SCH (08:21)
[2020-01-03] MEDS: LOSARTAN 25 MG TAB PO SCH (08:21)
[2020-01-03 11:35] LABS: Glucose,Whole Blood 95 mg/dL (75-99)
--- NOTE | 2020-01-03 12:03 | P.PN ---
Subjective Patient is seen in follow-up for end-stage renal disease. He is maintained on peritoneal dialysis. No problems with peritoneal dialysis. No constipation. Diarrhea resolved. All cultures negative so far. He is also afebrile. No active complaints. Vital signs are stable. General: The patient appeared well nourished and normally developed. HEENT: Head exam is unremarkable. Neck is without jugular venous distension. LUNGS: Breath sounds decreased. HEART: Rate and Rhythm are regular. ABDOMEN: Soft, nontender. Obese. EXTREMITITES: No edema. Objective - Vital Signs Vital signs: Vital Signs Temp 98.2 F 01/03/20 05:00 Pulse 59 L 01/03/20 05:00 Resp 18 01/03/20 05:00 BP 168/70 01/03/20 05:00 Pulse Ox 94 L 01/03/20 05:00 Intake & Output 01/02/20 01/03/20 01/03/20 18:59 06:59 18:59 Intake Total 150 Balance 150 Intake: Oral 150 Other: Voiding Method Toilet Toilet Urinal Urinal # Voids 1 - Labs CBC & Chem 7: 01/01/20 12:31 01/01/20 12:31 Labs: Abnormal Lab Results - Last 24 Hours (Table) 01/02/20 01/02/20 01/02/20 Range/Units 11:23 17:02 20:19 POC Glucose (mg/dL) 151 H 126 H (75-99) mg/dL Urine Protein 2+ H (Negative) Urine Glucose (UA) Trace H (Negative) Urine Mucus Rare H (None) /hpf 01/03/20 Range/Units 07:06 POC Glucose (mg/dL) 123 H (75-99) mg/dL Urine Protein (Negative) Urine Glucose (UA) (Negative) Urine Mucus (None) /hpf Microbiology - Last 24 Hours (Table) 01/02/20 Unknown Urine Culture - Preliminary Urine,Voided 01/01/20 18:00 Gram Stain - Preliminary Peritoneal Fluid Body Fluid Culture - Preliminary 01/01/20 12:31 Blood Culture - Preliminary Blood No Growth after 24 hours Assessment and Plan Plan: Assessment: 1. End-stage renal disease maintained on peritoneal dialysis. 2. Fever. Unclear cause. No evidence of peritonitis. He did receive intraperitoneal vancomycin and Fortaz on December 31. 3. Hypertension with chronic kidney disease. 4. Diabetes mellitus. 5. Chronic kidney disease mineral bone disease maintained on Renvela. Plan: Maintain 2 L exchanges every 6 hours with 1.5% dextrose solution. No need for intraperitoneal antibiotics. Increase losartan to 25 mg twice daily - to be held if systolic blood pressure less than 1:30. Patient to monitor his blood pressure at home.
[2020-01-03 12:12] VITALS: BP 168/72; PULSE 61; RESP 17; TEMP 97.8
[2020-01-03] MEDS ORDERED: LOSARTAN 25 MG TAB PO SCH (21:00)
--- NOTE | 2020-01-05 22:42 | P.DS ---
Providers Date of admission: 01/01/20 19:08 Expected date of discharge: 01/03/20 Attending physician: Kel Brian Consults: 01/01/20 13:47 Consult Physician Urgent Consulting Provider: Willie Linares Consult Reason/Comments: Peritoneal dialysis Do you want consulting provider notified?: Yes Primary care physician: Satish Wilson [facility] Course: Chief Complaint: Chills History of presenting complaint: This is a pleasant [address] Satish Wilson. Follows with trouble tracer Dr. Quiros. Chronic stable medical conditions include coronary artery disease, COPD, diabetes, hypertension, hyperlipidemia, hypothyroid, end-stage kidney disease from polycystic kidney disease on peritoneal dialysis. Patient is a smoker. Patient been on peritoneal dialysis for last 5 months. Patient been having fever or chills. Last 2 weeks. Denies any respiratory symptoms. No headaches. No urinary symptoms. No diarrhea. No abdominal pain. Denies any change of dialysate color. There is a concern about peritoneal dialysis has family doctor sent. Patient to the ER. Fluid was sent off for Gram stain and culture. Patient is empirically given a dose of vancomycin and ceftriaxone. No pain at the peritoneal dialysis catheter site. No drainage. Patient's had some diarrhea settled down. No cough. Patient felt to have likely a viral syndrome. Patient was negative for COVID, influenza A and B. Peritoneal fluid was clear. She was given antibiotics and discontinued. Today-feeling well. Good appetite. Back to his baseline. Care was discussed with patient's daughters. Cleared by nephrology. Discussion and discharge planning more than 35 minutes Structural Ironworker: Dr. Linares from nephrology VITAL SIGNS: 97.8, 61, 17, 1 68 x 32, 96% room air GENERAL: Sitting up, comfortable EYES: Pupils equal. Conjunctiva normal. HEENT: External appearance of nose and ears normal, oral cavity grossly normal. NECK: JVD not raised; masses not palpable. HEART: First and second heart sounds are normal; no edema. LUNGS: Respiratory rate normal; clear to auscultation. ABDOMEN: Soft, nontender, liver spleen not palpable, no masses palpable, [address] Site does not appear infected.. PSYCH: Alert and oriented x3; mood and affect normal. INVESTIGATIONS, reviewed in the clinical context: White count 9.9 hemoglobin 11.3 platelets 185 potassium 4.2 bun 35 creatinine 7.29 Peritoneal dialysate fluid-RBC 7 nucleated cells 6 Chest x-ray film personally reviewed by me-prominent pulmonary artery no obvious infiltrate COVID 19 P/Cr-not detected Influenza type A type B both negative. UA-negative Assessment: -Acute vital syndrome. -COPD in a current smoker -Diabetes mellitus type 2 -Hyperlipidemia -Essential hypertension -Primary osteoarthritis -Hypothyroid -End-stage kidney disease on peritoneal dialysis from underlying polycystic kidney disease - Disposition: Home Patient Condition at Discharge: Stable Plan - Discharge Summary Discharge Rx Participant: No New Discharge Prescriptions: Continue Levothyroxine Sodium [Synthroid] 25 mcg PO DAILY Aspirin 81 mg PO DAILY Rosuvastatin [Crestor] 20 mg PO DAILY carvediloL [Coreg] 3.125 mg PO BID Nephro-Mikayla 0.8mg 0.8 mg PO DAILY Vitamin D Complete 1 tab PO DAILY amLODIPine [Norvasc] 5 mg PO DAILY Linagliptin [Tradjenta] 5 mg PO DAILY Losartan Potassium [Cozaar] 25 mg PO DAILY rOPINIRole HCL [rOPINIRole HCL ER] 4 mg PO DAILY Sevelamer Carbonate 800 mg PO DAILY Varenicline [Chantix Continuing Pack] 1 mg PO BID Discharge Medication List Aspirin 81 mg PO DAILY 01/06/15 [History] Levothyroxine Sodium [Synthroid] 25 mcg PO DAILY 01/06/15 [History] Rosuvastatin [Crestor] 20 mg PO DAILY 08/13/19 [History] carvediloL [Coreg] 3.125 mg PO BID 08/13/19 [History] Linagliptin [Tradjenta] 5 mg PO DAILY 01/01/20 [History] Losartan Potassium [Cozaar] 25 mg PO DAILY 01/01/20 [History] Nephro-Mikayla 0.8mg 0.8 mg PO DAILY 01/01/20 [History] Sevelamer Carbonate 800 mg PO DAILY 01/01/20 [History] Varenicline [Chantix Continuing Pack] 1 mg PO BID 01/01/20 [History] Vitamin D Complete 1 tab PO DAILY 01/01/20 [History] amLODIPine [Norvasc] 5 mg PO DAILY 01/01/20 [History] rOPINIRole HCL [rOPINIRole HCL ER] 4 mg PO DAILY 01/01/20 [History] Follow up Appointment(s)/Referral(s): Satish Wilson MD [Primary Care Provider] - 01/08/20 12:30 pm Patient Instructions/Handouts: Peritoneal Dialysis (DC)
== END 2020-01-03 13:21 ==
LOC: EC 11:34 → 6NMEDSUR 19:08
PROVIDERS: ADMIT Hospitalist; ATTEND Hospitalist
DX: K65.2 Spontaneous bacterial peritonitis (principal); R50.9 Fever, unspecified; I25.10 Atherosclerotic heart disease of native coronary artery without angina pectoris; Z20.828 Contact with and (suspected) exposure to other viral communicable diseases; R19.7 Diarrhea, unspecified; E03.9 Hypothyroidism, unspecified; J44.9 Chronic obstructive pulmonary disease, unspecified; E11.9 Type 2 diabetes mellitus without complications; E78.5 Hyperlipidemia, unspecified; I12.0 Hypertensive chronic kidney disease with stage 5 chronic kidney disease or end stage renal disease; E11.22 Type 2 diabetes mellitus with diabetic chronic kidney disease; N18.6 End stage renal disease; M89.8X9 Other specified disorders of bone, unspecified site; Q61.3 Polycystic kidney, unspecified; M19.91 Primary osteoarthritis, unspecified site; Z99.2 Dependence on renal dialysis; E66.9 Obesity, unspecified; Z68.29 Body mass index [BMI] 29.0-29.9, adult; F17.200 Nicotine dependence, unspecified, uncomplicated; Z90.49 Acquired absence of other specified parts of digestive tract; Z98.42 Cataract extraction status, left eye; Z98.41 Cataract extraction status, right eye; Z98.890 Other specified postprocedural states; Z79.84 Long term (current) use of oral hypoglycemic drugs; Z79.82 Long term (current) use of aspirin; Z79.890 Hormone replacement therapy; Z79.899 Other long term (current) drug therapy; Z88.5 Allergy status to narcotic agent; Z91.041 Radiographic dye allergy status
CPT/HCPCS: 96365; 96366; 96367; 99284; 36415; 80053; 89050; 82150; 83605; 83690; 85025; 85610; 85730; 81001 ×2; 87040; 87070; 87086; 87205; 87502; 87635; 71046; 74176; G0378 ×3; J3370; J0696; A4722 ×3; J0713

== ENCOUNTER → 2020-01-15 | Outpatient (CLI) | payer MEDICARE ==
[2020-01-15 11:37] LABS: Basophils # (A) 0.1 k/uL (0-0.2); Basophils % (A) 1 %; Eosinophils # (A) 0.1 k/uL (0-0.7); Eosinophils % (A) 2 %; HGB 11.3 gm/dL (13.0-17.5); Lymphocytes % (A) 13 %; MCH 31.9 pg (25.0-35.0); MCHC 33.4 g/dL (31.0-37.0); MCV 95.3 fL (80.0-100.0); Mean Platelet Volume 6.7; Monocytes # (A) 0.4 k/uL (0-1.0); Monocytes % (A) 4 %; Neutrophils # (A) 6.3 k/uL (1.3-7.7); Neutrophils % (A) 79 %; Platelet Count 189 k/uL (150-450); RBC 3.56 m/uL (4.30-5.90); RDW 13.1 % (11.5-15.5); WBC 7.9 k/uL (3.8-10.6)
[2020-01-15 13:19] LABS: Erythrocyte Sedimentation Rate 43 mm/hr (0-15)
[2020-01-15 18:34] LABS: African American GFR (CKD) 11.5 (60.0-200.0); Albumin 4.3 g/dL (3.80-4.90); Albumin/Globulin Ratio 2.05 (1.60-3.17); BUN/Creat Ratio 10.57 Ratio (12.00-20.00); Calcium 9.2 mg/dL (8.7-10.3); Globulin 2.1 g/dL (1.6-3.3); Non-African American GFR(CKD) 9.9 (60.0-200.0); Potassium 4.6 mmol/L (3.5-5.5); Total Bilirubin 0.4 mg/dL (0.3-1.2); Total Protein 6.4 g/dL (6.2-8.2)
== END | disposition home or self-care (01) ==
LOC: LABWHC1 10:06
PROVIDERS: ATTEND Family Medicine
DX: R50.9 Fever, unspecified (principal); E11.21 Type 2 diabetes mellitus with diabetic nephropathy
CPT/HCPCS: 36415; 80053; 85025; 85652

== ENCOUNTER 2020-08-09 13:00 | Inpatient (IN) | payer MEDICARE ==
[2020-08-09 17:53] LABS: Glucose,Whole Blood 351 mg/dL (75-99)
[2020-08-09] MEDS: INSULIN ASPART (NovoLOG) 100 UNIT/ML VIAL SQ SCH (18:36)
[2020-08-09] MEDS ORDERED: ONDANSETRON 4 MG/2 ML VIAL IVP PRN (19:17)
[2020-08-09] MEDS ORDERED: MORPHINE SULFATE 4 MG/ML SYRINGE IV PRN (19:17)
[2020-08-09] MEDS ORDERED: NALOXONE 0.4 MG/ML 1 ML VIAL IV PRN (19:17)
[2020-08-09] MEDS ORDERED: MELATONIN 3 MG TABLET PO PRN (19:17)
[2020-08-09] MEDS ORDERED: ACETAMINOPHEN TAB 325 MG TAB PO PRN (19:17)
[2020-08-09 20:15] LABS: Glucose,Whole Blood 280 mg/dL (75-99)
--- NOTE | 2020-08-09 21:01 | XR ---
EXAMINATION TYPE: XR chest 1V portable DATE OF EXAM: 08/09/2020 COMPARISON: 01/01/2020 HISTORY: Short of breath TECHNIQUE: FINDINGS: There is mild pulmonary vascular congestion. There is blunting of the costophrenic angles a nd more on the right side. There is airspace infiltrate right lower lobe. There is some fluid in the right major fissure. IMPRESSION: Pleural effusions with right lower lobe infiltrate. There is probably some congestive hea rt failure. Abnormalities are new compared to old exam.
[2020-08-09] MEDS ORDERED: HYDROcodone/APAP 5-325MG 1 EACH TAB PO PRN (21:30)
--- NOTE | 2020-08-09 21:58 | P.HPIM ---
History of Present Illness H&P Date: 08/09/20 Chief Complaint: transfer from [facility] for multiple medical issues 74 year old male with ESRD on PD for 1 year now 2/2 HTN and PKD, DM, HTN patient is a transfer from [facility] per patient family request. Patient has multiple medical issues. He was taken to [facility] on August 02 due to few day history of gradual deterioration of his health feeling sick with worsening difficulty in breathing fevers and right-sided chest pain b melanie is a summary of his active medical issues and what has been done so far at the other facility Currently patient laying down in bed complaining of right-sided chest pain and some difficulty in breathing however overall he thinks he's been feeling like this for the past couple days they were not satisfied with the care at [facility] as things were moving slow over the weekend per his . #1 NSTEMI Patient initial EKGs showed ST depression in lateral leads, elevated troponin, cardiology got on the case, patient was admitted to the CVICU, however could not do a left heart cath as patient was unable to lay flat due to difficulty breathing he was initiated on heparin drip and continued on aspirin and Plavix and statin his beta blockers were held due to hypotension cardiology has been monitoring his situation closely and were awaiting for improvement in his breathing to be able to do a left heart cath which has not been done yet. Patient was switched today to heparin subcu at [facility] and his heparin drip was discontinued Plan Continue with aspirin, Plavix, atorvastatin EKG showed normal sinus rhythm and no acute ST changes Trend troponins Cardiology consult Continue to hold Coreg and losartan Continue with metoprolol XL 12.5 mg daily which was started today or yesterday at [facility] Continue with Isordil 20 mg twice a day Await further cardiology recommendations court recording monitor Patient also has history of hyperlipidemia, AAA status post repair, most recent left ventricle ejection fraction 5560 percent also showed segmental wall motion abnormalities #2 acute hypoxic respiratory failure multifactorial COPD exacerbation Healthcare associated pneumonia Right-sided loculated pleural effusion Plan Seems like patient has spent couple days in the CVICU as mentioned above he was initially initiated on vancomycin and Zosyn which was later D escalated to Rocephin, blood cultures remained negative. Continue with prednisone 40 mg with tapering dose as appropriate Continue with DuoNeb's breathing treatments as needed Initiate Symbicort twice a day Supplemental oxygen as needed Continue with Rocephin Chest x-ray did show right pleural effusion and right pulmonary infiltrates Pulmonary consult Interventional radiology consult for right sided thoracentesis for loculated pleural effusion, send appropriate studies and cultures on the pleural fluid was obtained Pain control with tramadol and [place] as needed Assessment for home oxygen requirement prior to discharge Encourage incentive spirometry #3 end-stage renal disease on peritoneal dialysis X1 year, secondary to hypertension and polycystic kidney disease Patient gets peritoneal dialysis on daily basis Plan Consult nephrology Resume Lasix 80 mg by mouth daily Patient has condom catheter, continue care Continue with Renvela 800 mg 3 times a day Peritoneal fluid analysis was done at [facility], cultures remained negative Gram stain was negative #4 diabetes mellitus Continue with insulin sliding scale Continue with Levemir 10 units daily Check A1c #5 hypertension with episodes of hypotension At [facility] Coreg 3.125 mg twice a day and losartan 100 mg home medications were held Currently per cardiology recommendations he is on Isordil and Toprol-XL low-dose as above Continue to monitor vital signs #6 hypothyroid continue with Synthroid 25 g daily #7 trouble swallowing Patient has history of shingles in his ears and throat Assess bedside swallow eval #8 anemia of chronic disease Hemoglobin has been stable at the other facility Continue to monitor for any evidence of bleeding, continue to monitor hemoglobin level Review of Systems Pertinent positives as noted in HPI. All other systems were reviewed and are negative Past Medical History Past Medical History: Coronary Artery Disease (CAD), COPD, Diabetes Mellitus, Hyperlipidemia, Hypertension, Osteoarthritis (OA), Renal Disease, Thyroid Disorder Additional Past Medical History / Comment(s): end stage kidney failure, cyst in kidney, peritoneal dialysis History of Any Multi-Drug Resistant Organisms: None Reported Past Surgical History: Appendectomy, Cholecystectomy, Orthopedic Surgery Additional Past Surgical History / Comment(s): Right carotid endarterectomy, AAA with femoral bypass, andi knee arthroscopy, andi cataracts Past Anesthesia/Blood Transfusion Reactions: Motion Sickness Past Psychological History: No Psychological Hx Reported Smoking Status: Former smoker Past Alcohol Use History: None Reported Additional Past Alcohol Use History / Comment(s): smokes 1/2 PPD, has smoked over 50 yrs, quit August 2019 Past Drug Use History: None Reported - Past Family History Mother Family Medical History: No Reported History Medications and Allergies Home Medications Medication Instructions Recorded Confirmed Type Aspirin 81 mg PO DAILY 01/06/15 08/09/20 History Levothyroxine Sodium [Synthroid] 25 mcg PO DAILY 01/06/15 08/09/20 History Rosuvastatin [Crestor] 20 mg PO DAILY 08/13/19 08/09/20 History carvediloL [Coreg] 3.125 mg PO BID 08/13/19 08/09/20 History Linagliptin [Tradjenta] 5 mg PO DAILY 01/01/20 08/09/20 History Nephro-Mikayla 0.8mg 0.8 mg PO DAILY 01/01/20 08/09/20 History Sevelamer Carbonate 800 mg PO TID-W/MEALS 01/01/20 08/09/20 History rOPINIRole HCL [rOPINIRole HCL ER] 4 mg PO DAILY 01/01/20 08/09/20 History Calcium Acetate [Phoslo] 667 mg PO TID-W/MEALS 08/09/20 08/09/20 History Diclofenac Sodium [Voltaren Gel] 2 gram TOPICAL QID PRN 08/09/20 08/09/20 History Ferrous Sulfate [Feosol] 325 mg PO DAILY 08/09/20 08/09/20 History Losartan Potassium [Cozaar] 100 mg PO HS 08/09/20 08/09/20 History Nitroglycerin Sl Tabs [Nitrostat] 0.4 mg SUBLINGUAL Q5M PRN 08/09/20 08/09/20 History Vitamin D Complete W/Iron 1 tab PO DAILY 08/09/20 08/09/20 History Allergies Allergy/AdvReac Type Severity Reaction Status Date / Time Iodinated Contrast Media Allergy SEE Verified 08/09/20 18:14 [Iodinated Contrast Media - COMMENTS IV Dye] codeine AdvReac Nausea & Verified 08/09/20 18:14 Vomiting Physical Exam Vitals: Vital Signs Temp Pulse Resp BP Pulse Ox 08/09/20 18:20 97.8 F 87 20 156/80 94 L Intake and Output 08/09/20 08/09/20 08/09/20 06:59 14:59 22:59 Intake Total 25 Balance 25 Intake: Oral 25 Other: Weight 107.2 kg Constitutional: No acute distress, conversant, pleasant Eyes: Anicteric sclerae, moist conjunctiva, Pupils equal round reactive to light ENMT: NC/AT Oropharynx clear, no erythema, or exudates Neck: Supple, FROM, no masses, or JVD No carotid bruits No thyromegaly Lungs: Decreased breath sounds over the right lung base, scattered wheezing Decreased percussion note over the right lung base Normal respiratory effort, no accessory muscle use Cardiovascular: Heart regular in rate and rhythm, No murmurs, gallops, or rubs No peripheral edema Abdominal: Soft, site of PD catheter looks healthy no surrounding erythema or induration no tenderness to palpation no drainage Nontender, no guarding, rebound or rigidity Abdomen moving with respiration Normoactive bowel sounds No hepatomegaly, No splenomegaly No palpable mass No abdominal wall hernia noted Skin: Normal temperature, tone, texture, turgor No induration No subcutaneous nodules No rash, lesions No ulcers Extremities: No digital cyanosis No clubbing Pedal pulses intact and symmetrical Radial pulses intact and symmetrical No calf tenderness Psychiatric: Alert and oriented to person, place and time Appropriate affect fair judgement Neuro Muscles Strength 3/5 over bilateral lower extremities, 4 over 5 over bilateral upper extremities Sensation to light touch grossly present throughout Cranial nerves II-XII grossly intact No focal sensory deficits Lymphatics: no palpable cervical or supraclavicular , or inguinal lymph nodes Results Labs: Abnormal Lab Results - Last 24 Hours (Table) 08/09/20 Range/Units 17:50 POC Glucose (mg/dL) 351 H (75-99) mg/dL Thrombosis Risk Factor Assmnt - Choose All That Apply Any of the Below Risk Factors Present?: Yes Each Factor Represents 1 point: Abnormal pulmonary function (COPD), Obesity (BMI >25), Serious lung disease incl. pneumonia (< 1month) Each Risk Factor Represents 2 Points: Age 61-74 years Thrombosis Risk Factor Assessment Total Risk Factor Score: 5 Thrombosis Risk Factor Assessment Level: High Risk Assessment and Plan Assessment: Assessment and plan as summarized above Preformed a thorough record review from recent hospitalization at [facility] from August 02 until August 092020 GI prophylaxis Protonix twice a day PT/OT eval CODE STATUS: Full code DVT prophylaxis: Heparin subcu 3 times a day Discussed with: Patient, ER, RN Anticipated length of stay more than [address]: Pending clinical course A total of 75 minutes was spent on the care of this complex patient more than 50% of the time was spent in counseling and care coordination.
[2020-08-09 22:29] LABS: Basophils # (A) 0.1 k/uL (0-0.2); Basophils % (A) 0 %; Eosinophils % (A) 0 %; HCT 25.3 % (39.0-53.0); HGB 8.2 gm/dL (13.0-17.5); Lymphocytes # (A) 0.3 k/uL (1.0-4.8); Lymphocytes % (A) 2 %; MCH 32.5 pg (25.0-35.0); MCHC 32.5 g/dL (31.0-37.0); MCV 100.1 fL (80.0-100.0); Mean Platelet Volume 8.2; Monocytes # (A) 0.6 k/uL (0-1.0); Monocytes % (A) 3 %; Neutrophils # (A) 18.9 k/uL (1.3-7.7); Neutrophils % (A) 94 %; Platelet Count 209 k/uL (150-450); RBC 2.53 m/uL (4.30-5.90); RDW 13.1 % (11.5-15.5); WBC 20.1 k/uL (3.8-10.6)
[2020-08-09] MEDS: traMADol 50 MG TAB PO PRN (22:35)
[2020-08-09] MEDS: PANTOPRAZOLE 40 MG TABLET PO SCH (22:35)
[2020-08-09] MEDS: ATORVASTATIN 80 MG TAB PO SCH (22:35)
[2020-08-09 23:19] LABS: Albumin 3.2 g/dL (3.5-5.0); Calcium 8.2 mg/dL (8.4-10.2); Magnesium 2.7 mg/dL (1.6-2.3); Potassium 5.2 mmol/L (3.5-5.1); Total Bilirubin 0.1 mg/dL (0.2-1.3); Total Protein 5.9 g/dL (6.3-8.2)
[2020-08-10] MEDS ORDERED: DIALYSIS (PERIT 4.25%) 2500 ML 106.25 G/2,500 ML BAG INTRAPERIT SCH
[2020-08-10] MEDS: ISOSORBIDE DINITRATE 20 MG TAB PO SCH ×3 (00:14→20:51)
[2020-08-10] MEDS: HEPARIN SODIUM,PORCINE/PF 5,000 UNIT/0.5 ML SYRINGE SQ SCH ×4 (00:15→22:58)
[2020-08-10 00:45] LABS: Glucose,Whole Blood 239 mg/dL (75-99)
[2020-08-10] MEDS: IPRATROPIUM-ALBUTEROL 3 ML NEB INHALATION PRN ×3 (03:42→11:22)
[2020-08-10] MEDS ORDERED: DIALYSIS (PERIT 2.5%) 2,500 ML 62.5 G/2,500 ML BAG INTRAPERIT SCH (06:00)
[2020-08-10] MEDS: traMADol 50 MG TAB PO PRN (06:30)
[2020-08-10] MEDS: LEVOTHYROXINE 25 MCG TAB PO SCH (06:30)
[2020-08-10] MEDS: PANTOPRAZOLE 40 MG TABLET PO SCH ×2 (06:31→16:12)
[2020-08-10] MEDS: INSULIN ASPART (NovoLOG) 100 UNIT/ML VIAL SQ SCH ×4 (06:31→20:51)
[2020-08-10] MEDS: SEVELAMER 800 MG TAB PO SCH ×3 (06:31→16:12)
[2020-08-10 06:37] LABS: Glucose,Whole Blood 270 mg/dL (75-99)
[2020-08-10] MEDS ORDERED: INSULIN DETEMIR (LEVEMIR) 100 UNIT/ML SYR SQ SCH (07:00)
[2020-08-10 07:57] LABS: Basophils # (A) 0.1 k/uL (0-0.2); Basophils % (A) 0 %; Eosinophils % (A) 0 %; HCT 26.3 % (39.0-53.0); HGB 8.6 gm/dL (13.0-17.5); Lymphocytes # (A) 0.5 k/uL (1.0-4.8); Lymphocytes % (A) 3 %; MCH 33.1 pg (25.0-35.0); MCHC 32.9 g/dL (31.0-37.0); MCV 100.7 fL (80.0-100.0); Mean Platelet Volume 7.8; Monocytes # (A) 0.7 k/uL (0-1.0); Monocytes % (A) 3 %; Neutrophils # (A) 19.2 k/uL (1.3-7.7); Neutrophils % (A) 93 %; Platelet Count 251 k/uL (150-450); RBC 2.61 m/uL (4.30-5.90); RDW 13.3 % (11.5-15.5); WBC 20.6 k/uL (3.8-10.6)
[2020-08-10] MEDS ORDERED: SYMBICORT 160-4.5 MCG INHALER INHALATION SCH (08:00)
[2020-08-10 08:08] LABS: Albumin 3.3 g/dL (3.5-5.0); Calcium 8.3 mg/dL (8.4-10.2); Potassium 4.9 mmol/L (3.5-5.1); Total Bilirubin 0.2 mg/dL (0.2-1.3); Total Protein 5.9 g/dL (6.3-8.2)
[2020-08-10] MEDS: METOPROLOL TARTRATE 12.5 MG TAB PO SCH (08:17)
[2020-08-10] MEDS: ASPIRIN 81 MG PO SCH (08:17)
[2020-08-10] MEDS ORDERED: predniSONE 20 MG TAB PO SCH (09:00)
[2020-08-10] MEDS ORDERED: FUROSEMIDE 80 MG TAB PO SCH (09:00)
--- NOTE | 2020-08-10 09:07 | US ---
EXAMINATION TYPE: US chest DATE OF EXAM: 08/10/2020 COMPARISON: x ray CLINICAL HISTORY: shortness of breath. Loculated pleural effusion TECHNIQUE: Targeted ultrasound of the posterior bilateral hemithoraces EXAM MEASUREMENTS: Right Pleural Effusion pocket size: 5.4 cm A/P, complex chest fluid is noted Right skin surface to fluid distance: 3.9 cm A/P Left Pleural Effusion pocket size: no fluid seen Right side was marked for possible thoracentesis outside the dept. Pulmonologists are able to review the images in the patient?s EMR. IMPRESSIONS: 1. Right hemithorax was marked for possible thoracentesis. 5.4 cm AP right foot collection is 3.9 cm AP from skin surface.
[2020-08-10 10:21] LABS: INR 1.1 (<1.2); Prothrombin Time 11.6 sec (9.0-12.0)
[2020-08-10] MEDS: DIALYSIS (PERIT 4.25%) 2500 ML 106.25 G/2,500 ML BAG INTRAPERIT SCH ×4 (10:32→22:11)
[2020-08-10] MEDS: CLOPIDOGREL 75 MG TAB PO SCH (10:45)
[2020-08-10] MEDS ORDERED: VANCOMYCIN IV PER PHARMACY 1 EACH MISC MISCELLANE PRN (11:31)
[2020-08-10] MEDS ORDERED: VANCOMYCIN 1,750 MG in SODIUM CHLORIDE 0.9% 500 ML 500 ML IVPB ONE (12:00)
[2020-08-10 12:04] LABS: Glucose,Whole Blood 332 mg/dL (75-99)
[2020-08-10] MEDS: PIPERACILLIN-TAZOBACTAM 3.375 GM in SODIUM CHLORIDE 0.9% 100 ML IVPB SCH ×2 (12:37→22:57)
[2020-08-10] MEDS: methylPREDNISolone SOD SUCCI 125 MG/2 ML VIAL IV SCH ×3 (12:37→22:58)
--- NOTE | 2020-08-10 13:33 | P.CNPUL ---
History of Present Illness Consult date: 08/10/20 Requesting physician: Ximena Dumont Reason for consult: dyspnea, cough, COPD, pneumonia, pleural effusion, abnormal CXR/CT Chief complaint: Shortness of breath, pneumonia, pleural effusion. History of present illness: Pulmonary consult dated 08/10/2020. 74-year-old male, transferred over to the hospital, [facility] family [facility]. The patient was initially taken to [facility], and then transferred to [facility] on August 02. He apparently been feeling poorly for a couple days or so or maybe a bit longer, prior to admission, with complaints of difficulty breathing, fever, and right-sided chest pain. The patient was initially seen at [facility], and transferred down to [facility]. Yesterday, was notified by one of his daughters who is a nurse, that the family wanted the patient transferred down to [facility]. The patient was transferred yesterday. According to one of the daughters, the patient was needing to have a thoracentesis. Apparently there was a date from pulmonary services and interventional radiology, in terms of who should do the thoracentesis. Anyway, it was apparently frustrating to the family and the patient was transferred here. The patient is to have a thoracentesis performed by interventional radiology here today. White count 20.6, hemoglobin 8.6, hematocrit 26.3, and platelet count 251,000. PT INR are normal. Sodium 136, potassium 4.9, chlorid es 92, CO2 25, anion gap 19, BUN 119, and creatinine 8.58. Chest x-ray and ultrasound of the right chest are reviewed. In addition, we added some Solu- Medrol, DC his Symbicort in favor of Pulmicort and formoterol, and added stronger antibiotics including Zosyn and vancomycin. Review of Systems REVIEW OF SYSTEMS: CONSTITUTIONAL: Weakness. NEUROLOGIC: [ Negative.] HEENT: [ Negative.] CARDIAC: [Negative.] PULMONARY: Shortness of breath, right chest pain. GI: [Negative.] : [Negative.] RHEUMATOLOGIC: [ Negative.] IMMUNOLOGIC: [ Negative.] ENDOCRINE: [Negative. ] DERMATOLOGIC: [Negative.] Past Medical History Past Medical History: Coronary Artery Disease (CAD), COPD, Diabetes Mellitus, Hyperlipidemia, Hypertension, Osteoarthritis (OA), Renal Disease, Thyroid Disorder Additional Past Medical History / Comment(s): end stage kidney failure, cyst in kidney, peritoneal dialysis History of Any Multi-Drug Resistant Organisms: None Reported Past Surgical History: Appendectomy, Cholecystectomy, Orthopedic Surgery Additional Past Surgical History / Comment(s): Right carotid endarterectomy, AAA with femoral bypass, andi knee arthroscopy, andi cataracts Past Anesthesia/Blood Transfusion Reactions: Motion Sickness Past Psychological History: No Psychological Hx Reported Smoking Status: Former smoker Past Alcohol Use History: None Reported Additional Past Alcohol Use History / Comment(s): smokes 1/2 PPD, has smoked over 50 yrs, quit August 2019 Past Drug Use History: None Reported - Past Family History Mother Family Medical History: No Reported History Medications and Allergies Home Medications Medication Instructions Recorded Confirmed Type Aspirin 81 mg PO DAILY 01/06/15 08/09/20 History Levothyroxine Sodium [Synthroid] 25 mcg PO DAILY 01/06/15 08/09/20 History Rosuvastatin [Crestor] 20 mg PO DAILY 08/13/19 08/09/20 History carvediloL [Coreg] 3.125 mg PO BID 08/13/19 08/09/20 History Linagliptin [Tradjenta] 5 mg PO DAILY 01/01/20 08/09/20 History Nephro-Mikayla 0.8mg 0.8 mg PO DAILY 01/01/20 08/09/20 History Sevelamer Carbonate 800 mg PO TID-W/MEALS 01/01/20 08/09/20 History rOPINIRole HCL [rOPINIRole HCL ER] 4 mg PO DAILY 01/01/20 08/09/20 History Calcium Acetate [Phoslo] 667 mg PO TID-W/MEALS 08/09/20 08/09/20 History Diclofenac Sodium [Voltaren Gel] 2 gram TOPICAL QID PRN 08/09/20 08/09/20 History Ferrous Sulfate [Feosol] 325 mg PO DAILY 08/09/20 08/09/20 History Losartan Potassium [Cozaar] 100 mg PO HS 08/09/20 08/09/20 History Nitroglycerin Sl Tabs [Nitrostat] 0.4 mg SUBLINGUAL Q5M PRN 08/09/20 08/09/20 History Vitamin D Complete W/Iron 1 tab PO DAILY 08/09/20 08/09/20 History Allergies Allergy/AdvReac Type Severity Reaction Status Date / Time Iodinated Contrast Media Allergy SEE Verified 08/09/20 18:14 [Iodinated Contrast Media - COMMENTS IV Dye] codeine AdvReac Nausea & Verified 08/09/20 18:14 Vomiting Physical Exam Osteopathic Statement: *. No significant issues noted on an osteopathic structural exam other than those noted in the History and Physical/Consult. Vitals: Vital Signs Temp Pulse Pulse Resp BP Pulse Ox 08/10/20 11:24 90 08/10/20 08:15 97.5 F L 90 28 H 146/76 91 L 08/10/20 07:51 98 08/10/20 07:43 94 08/10/20 04:00 98.0 F 88 20 150/78 94 L 08/10/20 03:50 90 22 08/10/20 03:42 81 24 08/10/20 02:00 90 22 08/10/20 00:00 90 20 146/70 91 L 08/09/20 20:00 97.7 F 85 20 151/80 93 L 08/09/20 18:20 97.8 F 87 20 156/80 94 L Intake and Output 08/09/20 08/10/20 08/10/20 22:59 06:59 14:59 Intake Total 25 Output Total 300 Balance 25 -300 Intake: Oral 25 Output: Urine 300 Other: Voiding Method External Catheter External Catheter # Voids 0 Weight 107.2 kg 110.5 kg Mild respiratory distress, oriented 3. Patient complaining of right-sided chest discomfort. HEENT examination is grossly unremarkable. Neck supple. Full range of motion. No adenopathy thyromegaly or neck vein distention. Cardiovascular examination reveals regular rhythm rate. S1-S2 normal. No S3 or S4. No discernible murmur noted. Heart sounds are distant. Heart rate 90 bpm. Lungs reveal diminished breath sounds at the right lung base. Dullness at the right lung base. Scattered rhonchi are also noted on the right side. No wheezes or crackles. The left lung is essentially clear. Abdomen soft bowel sounds are heard. No masses or tenderness. Extremities are intact. No cyanosis clubbing or edema. Skin is without rash or lesion. Neurologic examination is brief but nonfocal. Results - Laboratory Findings CBC and BMP: 08/10/20 07:28 08/10/20 07:28 PT/INR, D-dimer PT 11.6 sec (9.0-12.0) 08/10/20 09:49 INR 1.1 (<1.2) 08/10/20 09:49 Abnormal lab findings: Abnormal Labs 08/09/20 08/09/20 08/09/20 17:50 20:14 22:16 WBC 20.1 H RBC 2.53 L Hgb 8.2 L Hct 25.3 L MCV 100.1 H Neutrophils # 18.9 H Lymphocytes # 0.3 L Sodium Potassium Chloride BUN Creatinine Glucose POC Glucose (mg/dL) 351 H 280 H Calcium Magnesium Total Bilirubin Total Protein Albumin 08/09/20 08/10/20 08/10/20 22:16 00:39 06:01 WBC RBC Hgb Hct MCV Neutrophils # Lymphocytes # Sodium 133 L Potassium 5.2 H Chloride 91 L BUN 119 H* Creatinine 8.57 H* Glucose 254 H POC Glucose (mg/dL) 239 H 270 H Calcium 8.2 L Magnesium 2.7 H Total Bilirubin 0.1 L Total Protein 5.9 L Albumin 3.2 L 08/10/20 08/10/20 08/10/20 07:28 07:28 12:00 WBC 20.6 H RBC 2.61 L Hgb 8.6 L Hct 26.3 L MCV 100.7 H Neutrophils # 19.2 H Lymphocytes # 0.5 L Sodium 136 L Potassium Chloride 92 L BUN 119 H* Creatinine 8.58 H* Glucose 276 H POC Glucose (mg/dL) 332 H Calcium 8.3 L Magnesium Total Bilirubin Total Protein 5.9 L Albumin 3.3 L - Diagnostic Findings Chest x-ray: image reviewed Assessment and Plan Assessment: Right basilar pneumonia with a right parapneumonic effusion, rule out empyema. Possible NSTEMI. History of end-stage renal disease, currently on peritoneal dialysis. History of diabetes mellitus. History of hyperlipidemia. History of hypertension. History of coronary artery disease. History of hypothyroidism. History of COPD from previous heavy tobacco use. Anemia of chronic disease. Plan: Plan dated 08/10/2020. The patient's updrafts were changed to him. Also think and ipratropium bromide, 4 times a day and when necessary. In addition, we discontinued Symbicort, and fever up Pulmicort 1 mg, mixed with formoterol, 20 g, twice a day. In addition, we discontinued prednisone in favor of Solu-Medrol. Finally, we stopped the ceftriaxone and started the patient on Zosyn and vancomycin. The patient is to have a thoracentesis performed by interventional radiology today. We'll send it for chemistry including LDH, protein, glucose, cytology, and microbiology. Additional recommendations and suggestions are forthcoming. Prognosis is guarded. Time with Patient: Greater than 30
[2020-08-10] MEDS: IPRATROPIUM-ALBUTEROL 3 ML NEB INHALATION SCH ×2 (15:26→20:20)
[2020-08-10] MEDS: DARBEPOETIN ALFA 60 MCG/0.3 ML SYRINGE SQ SCH (16:11)
[2020-08-10] MEDS: FUROSEMIDE 10 MG/ML 10 ML VIAL IV SCH (16:12)
[2020-08-10 16:15] LABS: Hemoglobin A1C 6.5 % (4.0-6.0)
[2020-08-10 16:51] LABS: Glucose,Whole Blood 476 mg/dL (75-99)
[2020-08-10 16:51] LABS: Glucose,Whole Blood 475 mg/dL (75-99)
[2020-08-10] MEDS ORDERED: INSULIN ASPART (NovoLOG) 100 UNIT/ML VIAL SQ ONE ×3 (17:14→23:02)
--- NOTE | 2020-08-10 17:33 | P.PN ---
Subjective Progress Note Date: 08/10/20 Patient was seen and evaluated by me today. He was sitting up in the chair. No acute events overnight. Objective - Vital Signs Vital signs: Vital Signs Temp 97.5 F L 08/10/20 16:00 Pulse 83 08/10/20 16:00 Resp 28 H 08/10/20 16:00 BP 138/69 08/10/20 16:00 Pulse Ox 93 L 08/10/20 16:00 Intake & Output 08/09/20 08/10/20 08/10/20 18:59 06:59 18:59 Intake Total 25 Output Total 300 Balance 25 -300 Weight 107.2 kg 110.5 kg Intake: Oral 25 Output: Urine 300 Other: Voiding Method External Catheter External Catheter # Voids 0 - Exam General: The patient is awake and alert, in no distress Eye: there is normal conjunctiva bilaterally. Neck: The neck is supple, there is no JVD. Cardiovascular: Normal S1-S2, no S3-S4, no murmurs. Respiratory: Lungs clear to auscultation bilaterally Gastrointestinal: Abdomen is soft, nontender Musculoskeletal: There is no pedal edema. Neurological:. Speech is normal. Skin: Skin is warm and dry - Labs CBC & Chem 7: 08/10/20 07:28 08/10/20 07:28 Labs: Abnormal Lab Results - Last 24 Hours (Table) 08/09/20 08/09/20 08/09/20 Range/Units 17:50 20:14 22:16 WBC 20.1 H (3.8-10.6) k/uL RBC 2.53 L (4.30-5.90) m/uL Hgb 8.2 L (13.0-17.5) gm/dL Hct 25.3 L (39.0-53.0) % MCV 100.1 H (80.0-100.0) fL Neutrophils # 18.9 H (1.3-7.7) k/uL Lymphocytes # 0.3 L (1.0-4.8) k/uL Sodium (137-145) mmol/L Potassium (3.5-5.1) mmol/L Chloride (98-107) mmol/L BUN (9-20) mg/dL Creatinine (0.66-1.25) mg/dL Glucose (74-99) mg/dL POC Glucose (mg/dL) 351 H 280 H (75-99) mg/dL Hemoglobin A1c (4.0-6.0) % Calcium (8.4-10.2) mg/dL Magnesium (1.6-2.3) mg/dL Total Bilirubin (0.2-1.3) mg/dL Total Protein (6.3-8.2) g/dL Albumin (3.5-5.0) g/dL 08/09/20 08/10/20 08/10/20 Range/Units 22:16 00:39 06:01 WBC (3.8-10.6) k/uL RBC (4.30-5.90) m/uL Hgb (13.0-17.5) gm/dL Hct (39.0-53.0) % MCV (80.0-100.0) fL Neutrophils # (1.3-7.7) k/uL Lymphocytes # (1.0-4.8) k/uL Sodium 133 L (137-145) mmol/L Potassium 5.2 H (3.5-5.1) mmol/L Chloride 91 L (98-107) mmol/L BUN 119 H* (9-20) mg/dL Creatinine 8.57 H* (0.66-1.25) mg/dL Glucose 254 H (74-99) mg/dL POC Glucose (mg/dL) 239 H 270 H (75-99) mg/dL Hemoglobin A1c (4.0-6.0) % Calcium 8.2 L (8.4-10.2) mg/dL Magnesium 2.7 H (1.6-2.3) mg/dL Total Bilirubin 0.1 L (0.2-1.3) mg/dL Total Protein 5.9 L (6.3-8.2) g/dL Albumin 3.2 L (3.5-5.0) g/dL 08/10/20 08/10/20 08/10/20 Range/Units 07:28 07:28 07:28 WBC 20.6 H (3.8-10.6) k/uL RBC 2.61 L (4.30-5.90) m/uL Hgb 8.6 L (13.0-17.5) gm/dL Hct 26.3 L (39.0-53.0) % MCV 100.7 H (80.0-100.0) fL Neutrophils # 19.2 H (1.3-7.7) k/uL Lymphocytes # 0.5 L (1.0-4.8) k/uL Sodium 136 L (137-145) mmol/L Potassium (3.5-5.1) mmol/L Chloride 92 L (98-107) mmol/L BUN 119 H* (9-20) mg/dL Creatinine 8.58 H* (0.66-1.25) mg/dL Glucose 276 H (74-99) mg/dL POC Glucose (mg/dL) (75-99) mg/dL Hemoglobin A1c 6.5 H (4.0-6.0) % Calcium 8.3 L (8.4-10.2) mg/dL Magnesium (1.6-2.3) mg/dL Total Bilirubin (0.2-1.3) mg/dL Total Protein 5.9 L (6.3-8.2) g/dL Albumin 3.3 L (3.5-5.0) g/dL 08/10/20 08/10/20 08/10/20 Range/Units 12:00 16:48 16:49 WBC (3.8-10.6) k/uL RBC (4.30-5.90) m/uL Hgb (13.0-17.5) gm/dL Hct (39.0-53.0) % MCV (80.0-100.0) fL Neutrophils # (1.3-7.7) k/uL Lymphocytes # (1.0-4.8) k/uL Sodium (137-145) mmol/L Potassium (3.5-5.1) mmol/L Chloride (98-107) mmol/L BUN (9-20) mg/dL Creatinine (0.66-1.25) mg/dL Glucose (74-99) mg/dL POC Glucose (mg/dL) 332 H 475 H 476 H (75-99) mg/dL Hemoglobin A1c (4.0-6.0) % Calcium (8.4-10.2) mg/dL Magnesium (1.6-2.3) mg/dL Total Bilirubin (0.2-1.3) mg/dL Total Protein (6.3-8.2) g/dL Albumin (3.5-5.0) g/dL Assessment and Plan Assessment: This is a 74-year-old male with complex past medical history who was transferred from [facility] to our facility per family request. Patient was hospitalized for a few days prior to his transfer. He is currently admitted to our hospital for further management of medical problems noted below. 1. Healthcare acquired pneumonia with right parapneumonic effusion: Currently on broad-spectrum antibiotic with vancomycin and Zosyn. Awaiting thoracentesis for culture. 2. Non-ST elevation [place], treated with optimal medical management at outside hospital. Unable to perform left heart cath as patient was unable to lay flat. Continue dual antiplatelet therapy and beta blockers. Will require left heart cath when overall clinical condition improved. 3. End-stage renal disease on peritoneal dialysis at home. Nephrology consulted and following closely 4. Acute hypoxic respiratory failure 5. Acute COPD exacerbation, started on bronchodilators and IV steroids. Pulmonary following closely. 6. Type 2 diabetes with steroid-induced hyperglycemia, continue sliding scale insulin. I adjusted his Levemir dose. We will continue to monitor closely 7. Chronic medical problems, anemia of chronic disease, hypothyroidism, essential hypertension, hyperlipidemia
[2020-08-10] MEDS: DOCUSATE 100 MG CAP PO SCH (17:37)
--- NOTE | 2020-08-10 19:05 | CONS ---
CONSULTATION REASON FOR CONSULT: End-stage renal disease. HISTORY OF PRESENT ILLNESS: The patient is a 74-year-old male with end-stage renal disease, on peritoneal dialysis. He was transferred from [facility] as family wanted the patient transferred here. The patient was admitted initially to [facility] and transferred to [facility] [place], [place] for pneumonia. He does have a loculated pleural effusion and there were plans for possible thoracentesis. In the meantime, it appears that patient has been short of breath. He is also volume overloaded. I do see that his BUN and creatinine are significantly elevated. I am not sure if he was getting regular dialysis exchanges. The patient has had some urine output as well. He is maintained on 4.25% solution exchanges alternating with 2.5, which was started last night. The patient had sustained non ST elevation OR for which cardiac catheterization was being considered, but patient was not able to lay flat and, therefore, thoracenteses was being contemplated as well. Patient had about 400 mL of ultrafiltration on the mid night exchange. Blood pressure has not been low. Systolic has been around 150-140 mmHg. No ongoing fevers at this time. Patient is maintained on Zosyn and steroids. He is also receiving vancomycin. PAST MEDICAL HISTORY: End-stage renal disease, CKD mineral bone disorder, coronary artery disease, type 2 diabetes, neuropathy, hyperlipidemia, hypertension, osteoarthritis. PAST SURGICAL HISTORY: Appendectomy, cholecystectomy, right carotid endarterectomy, AAA repair with femoral bypass, arthroscopy, cataract surgery PD catheter placement. SOCIAL HISTORY: Patient is a former smoker. He quit smoking 2 years ago. No history of drug abuse or alcohol abuse. MEDICATIONS: Medications prior to admission included aspirin, Synthroid, Crestor, Coreg, Tradjenta, Renagel, Nephro-Mikayla, PhosLo Voltaren gel, Cozaar, multivitamins. ALLERGIES: IV CONTRAST AND IODINE. EXAMINATION: Patient is comfortable, awake, not in any acute distress. He is mildly short of breath. Blood pressure is 146/76, heart rate 90 per minute, he is afebrile. Examination of the heart S1, S2. Examination of the lungs, decreased breath sounds at bases. Bilateral crackles are heard as well. Abdomen is soft, obese, nontender. Examination of lower extremities shows edema 1+ bilaterally. COUNTY ATTORNEY exam grossly intact. LAB: Show hemoglobin 8.6, sodium 136, potassium 4.9, BUN 119, serum creatinine 8.58. ASSESSMENT: 1. End-stage renal disease, on peritoneal dialysis, currently with volume overload. I will increase the exchanges to 4.25% solutions q.4 hours as his BUN and creatinine are also significantly elevated. If patient does not respond well to peritoneal dialysis, he may need a few hemodialysis treatments. 2. Volume overload. Increase PD exchanges to 4.25% solution q.4 hours and add IV Lasix. 3. Pneumonia with loculated right pleural effusion. 4. Chronic kidney disease mineral bone disorder. 5. Non ST elevation myocardial infarction status post IV heparin with plans for possible catheterization, maintained on angiotensin receptor blockers and beta blockers and nitrates. 6. Acute hypoxic respiratory failure secondary to pneumonia, volume overload, COPD exacerbation, maintained on steroids and antibiotics. 7. History of polycystic kidney disease. PLAN: Increase the dialysis exchanges to 4.25% solution q.4 hours. If no response, may need hemodialysis treatments. Switch to IV Lasix. Maintain patient on Aranesp for anemia. Continue with the phosphate binders, although I do not believe he is eating much. Continue steroids and antibiotics for now. Thank you for this consultation. We will continue to follow the patient with you during his hospitalization. MMODL / IJN: [id number] /
[2020-08-10 20:12] LABS: Glucose,Whole Blood 544 mg/dL (75-99)
[2020-08-10] MEDS: FORMOTEROL FUMARATE 20 MCG/2 ML NEBU INHALATION SCH (20:20)
[2020-08-10] MEDS: BUDESONIDE 1 MG/2 ML NEBU INHALATION SCH (20:20)
[2020-08-10] MEDS: ATORVASTATIN 80 MG TAB PO SCH (20:51)
[2020-08-10] MEDS: INSULIN DETEMIR (LEVEMIR) 100 UNIT/ML SYR SQ SCH (20:52)
[2020-08-10 22:56] LABS: Glucose,Whole Blood 444 mg/dL (75-99)
[2020-08-11 01:02] LABS: Glucose,Whole Blood 380 mg/dL (75-99)
[2020-08-11] MEDS: DIALYSIS (PERIT 4.25%) 2500 ML 106.25 G/2,500 ML BAG INTRAPERIT SCH ×6 (02:07→22:06)
[2020-08-11 03:06] LABS: Glucose,Whole Blood 341 mg/dL (75-99)
[2020-08-11 05:09] LABS: Glucose,Whole Blood 342 mg/dL (75-99)
[2020-08-11 06:05] LABS: Glucose,Whole Blood 299 mg/dL (75-99)
[2020-08-11] MEDS: methylPREDNISolone SOD SUCCI 125 MG/2 ML VIAL IV SCH (06:37)
[2020-08-11] MEDS: FUROSEMIDE 10 MG/ML 10 ML VIAL IV SCH ×2 (06:37→18:02)
[2020-08-11] MEDS: PANTOPRAZOLE 40 MG TABLET PO SCH ×2 (06:37→18:07)
[2020-08-11] MEDS: INSULIN ASPART (NovoLOG) 100 UNIT/ML VIAL SQ SCH ×5 (06:37→21:00)
[2020-08-11] MEDS: LEVOTHYROXINE 25 MCG TAB PO SCH (06:37)
[2020-08-11] MEDS: METOPROLOL TARTRATE 12.5 MG TAB PO SCH (07:35)
[2020-08-11] MEDS: SEVELAMER 800 MG TAB PO SCH ×3 (07:36→18:03)
[2020-08-11] MEDS: DOCUSATE 100 MG CAP PO SCH (07:36)
[2020-08-11] MEDS: INSULIN DETEMIR (LEVEMIR) 100 UNIT/ML SYR SQ SCH ×2 (07:36→20:54)
[2020-08-11] MEDS: ISOSORBIDE DINITRATE 20 MG TAB PO SCH ×2 (07:36→20:53)
[2020-08-11] MEDS: ASPIRIN 81 MG PO SCH (07:36)
[2020-08-11] MEDS: CLOPIDOGREL 75 MG TAB PO SCH (07:36)
[2020-08-11] MEDS: HEPARIN SODIUM,PORCINE/PF 5,000 UNIT/0.5 ML SYRINGE SQ SCH ×3 (07:37→23:18)
[2020-08-11] MEDS ORDERED: DILTIAZEM DRIP BOLUS FROM BAG 1 MG SOLN IV ONE (07:47)
[2020-08-11] MEDS ORDERED: NITROGLYCERIN SL TABS 0.4 MG TAB SUBLINGUAL ONE (07:52)
[2020-08-11] MEDS: traMADol 50 MG TAB PO PRN (07:52)
[2020-08-11] MEDS: BUDESONIDE 1 MG/2 ML NEBU INHALATION SCH ×2 (08:03→19:49)
[2020-08-11] MEDS: FORMOTEROL FUMARATE 20 MCG/2 ML NEBU INHALATION SCH ×2 (08:03→19:49)
[2020-08-11] MEDS: IPRATROPIUM-ALBUTEROL 3 ML NEB INHALATION SCH ×4 (08:03→19:49)
[2020-08-11] MEDS ORDERED: LIDOCAINE 2% INJ 20 MG/ML (20 ML MDV) ONE (08:10)
[2020-08-11] MEDS ORDERED: DILTIAZEM 125 MG in SODIUM CHLORIDE 0.9% 100 ML IV SCH (08:30)
[2020-08-11] MEDS ORDERED: DEXTROSE 5% IN WATER 250 ML with AMIODARONE 300 MG IV ONE (08:40)
--- NOTE | 2020-08-11 08:45 | XR ---
EXAMINATION TYPE: XR chest 1V DATE OF EXAM: 08/11/2020 COMPARISON: 08/09/2020 HISTORY: Shortness of breath TECHNIQUE: Single frontal view of the chest is obtained. FINDINGS: Low lung volumes. Heart size is enlarged. Atherosclerotic aortic knob. There is mild centra l pulmonary vascular congestion. There is blunting of the costophrenic angles and more on the right s trent suggestive of pleural effusions. Patchy airspace opacity at the right lung base suggestive of inf ectious/inflammatory process, such as pneumonia. Minimal atelectasis or developing pneumonia at the l eft lung base. No pneumothorax.. IMPRESSION: 1. Cardiomegaly and Central pulmonary vascular prominence is stable. 2. Patchy airspace opacity at the right lung base and less so at the left lung base suggestive of pos sible pneumonia. Small bilateral pleural effusions, right greater than left.
[2020-08-11] MEDS ORDERED: VANCOMYCIN 1,750 MG in SODIUM CHLORIDE 0.9% 500 ML 500 ML IVPB ONE (09:00)
--- NOTE | 2020-08-11 09:31 | XR ---
EXAMINATION TYPE: XR chest 1V portable DATE OF EXAM: 08/11/2020 COMPARISON: 08/11/2020 HISTORY: Right thoracentesis TECHNIQUE: Single frontal view of the chest is obtained. FINDINGS: Low lung volumes. Heart size is enlarged. Atherosclerotic aortic knob. There is mild centra l pulmonary vascular congestion. Tiny bilateral pleural effusions. No definite pneumothorax. Full ins piration view may be helpful. Patchy airspace opacity at the right lung base suggestive of infectious /inflammatory process, such as pneumonia. Minimal atelectasis or developing pneumonia at the left jay g base. No pneumothorax.. IMPRESSION: 1. Cardiomegaly and pulmonary vascular prominence is stable. 2. Patchy airspace opacity at the right lung base and less so at the left lung base suggestive of pos sible pneumonia. 3. Tiny bilateral pleural effusions. No definite pneumothorax. Full inspiration view may be helpful.
--- NOTE | 2020-08-11 09:37 | PCN ---
PROCEDURE NOTE PULMONARY AND CRITICAL CARE PROCEDURE NOTE: OPERATORS: Dr. Alfaro and Dr. Dumont PROCEDURE: Right-sided thoracentesis. PREOP DIAGNOSIS: Right pleural effusion. POSTOP DIAGNOSIS: Right pleural effusion. PROCEDURE IN DETAIL: A time-out was completed verifying correct patient, procedure, site, positioning , and implant (s) or special equipment if applicable. There was informed consent and universal timeout. The patient's procedure took place in the patient's room, room 365. Ultrasound guidance was used and appropriate fluid pocket was identified and marked. The right posterior chest was marked by ultrasound. Patient was positioned, prepped and draped in usual sterile fashion. Lidocaine was used to anesthetize the area. A Thoracentesis catheter was introduced into the pleural space and fluid was removed. Blood loss was none. A chest x-ray was ordered to evaluate for pneumothorax. Total Fluid Removed 400 ml of bloody fluid from the right pleural space. Color of Fluid was bloody. Fluid was sent down to the laboratory for analysis including chemistry, microbiology, and cytology. The patient tolerated the procedure well. A chest x-ray will be done to rule out pneumothorax. MMODL / IJN: [id number] /
[2020-08-11 09:41] LABS: Calcium 8.9 mg/dL (8.4-10.2); Potassium 4.8 mmol/L (3.5-5.1)
--- NOTE | 2020-08-11 10:10 | P.PN ---
Subjective Progress Note Date: 08/11/20 Principal diagnosis: Shortness of breath, right-sided pleural effusion. Pulmonary consult dated 08/10/2020. 74-year-old male, transferred over to the hospital, from [facility] per family request. The patient was initially taken to [facility], and then transferred to [facility] on August 02. He apparently been feeling poorly for a couple days or so or maybe a bit longer, prior to admission, with complaints of difficulty breathing, fever, and right-sided chest pain. The patient was initially seen at [facility], and epstein sferred down to [facility]. Yesterday, was notified by one of his daughters who is a nurse, that the family wanted the patient transferred down to [facility]. The patient was transferred yesterday. According to one of the daughters, the patient was needing to have a thoracentesis. Apparently there was a date from pulmonary services and interventional radiology, in terms of who should do the thoracentesis. Anyway, it was apparently frustrating to the family and the patient was transferred here. The patient is to have a thoracentesis performed by interventional radiology here today. White count 20.6, hemoglobin 8.6, hematocrit 26.3, and platelet count 251,000. PT INR are normal. Sodium 136, potassium 4.9, chlorides 92, CO2 25, anion gap 19, BUN 119, and creatinine 8.58. Chest x-ray and ultrasound of the right chest are reviewed. In addition, we added some Solu-Medrol, DC his Symbicort in favor of Pulmicort and formoterol, and added stronger antibiotics including Zosyn and vancomycin. Progress note dated 08/11/2020. 74-year-old male [facility] from [facility]. The patient underwent a right-sided thoracentesis today by myself. 400 mL of bloody fluid was removed from the right pleural space. The follow-up chest x-ray looks much better. There is no obvious pneumothorax. Currently, the patient's on a couple liters of nasal O2. He apparently did develop spontaneous atrial fibrillation with RVR this morning. He was placed on amiodarone drip. Cardiology is going to see the patient but apparently did not want IV heparin at this time. The patient's currently on Zosyn and vancomycin. He was seen yesterday in consultation. Sodium 136, potassium 4.8, chlorides 94, CO2 21, anion gap 21, BUN 116, and creatinine 8.14. Objective - Vital Signs Vital signs: Vital Signs Temp 98.2 F 08/11/20 04:00 Pulse 115 H 08/11/20 08:21 Resp 20 08/11/20 04:00 BP 134/71 08/11/20 04:00 Pulse Ox 91 L 08/11/20 04:00 Intake & Output 08/10/20 08/11/20 08/11/20 18:59 06:59 18:59 Intake Total 660 100 Output Total 150 Balance 660 -50 Weight 106.5 kg Intake: Oral 660 100 Output: Urine 150 Other: Voiding Method External Catheter External Catheter # Voids 0 - Exam Mild respiratory distress, oriented 3. Patient has improved breathing post thoracentesis. HEENT examination is grossly unremarkable. Neck supple. Full range of motion. No adenopathy thyromegaly or neck vein distention. Cardiovascular examination reveals regular rhythm rate. S1-S2 normal. No S3 or S4. No discernible murmur noted. Heart sounds are distant. Heart rate 115 bpm. Lungs reveal diminished breath sounds at the right lung base. Dullness at the right lung base. Scattered rhonchi are also noted on the right side. No wheezes or crackles. The left lung is essentially clear. Abdomen soft bowel sounds are heard. No masses or tenderness. Extremities are intact. No cyanosis clubbing or edema. Skin is without rash or lesion. Neurologic examination is brief but nonfocal. - Labs CBC & Chem 7: 08/10/20 07:28 08/11/20 08:56 Labs: Abnormal Lab Results - Last 24 Hours (Table) 08/10/20 08/10/20 08/10/20 Range/Units 07:28 12:00 16:48 Sodium (137-145) mmol/L Chloride (98-107) mmol/L Carbon Dioxide (22-30) mmol/L BUN (9-20) mg/dL Creatinine (0.66-1.25) mg/dL Glucose (74-99) mg/dL POC Glucose (mg/dL) 332 H 475 H (75-99) mg/dL Hemoglobin A1c 6.5 H (4.0-6.0) % 08/10/20 08/10/20 08/10/20 Range/Units 16:49 20:10 22:54 Sodium (137-145) mmol/L Chloride (98-107) mmol/L Carbon Dioxide (22-30) mmol/L BUN (9-20) mg/dL Creatinine (0.66-1.25) mg/dL Glucose (74-99) mg/dL POC Glucose (mg/dL) 476 H 544 H 444 H (75-99) mg/dL Hemoglobin A1c (4.0-6.0) % 08/11/20 08/11/20 08/11/20 Range/Units 01:01 03:04 05:07 Sodium (137-145) mmol/L Chloride (98-107) mmol/L Carbon Dioxide (22-30) mmol/L BUN (9-20) mg/dL Creatinine (0.66-1.25) mg/dL Glucose (74-99) mg/dL POC Glucose (mg/dL) 380 H 341 H 342 H (75-99) mg/dL Hemoglobin A1c (4.0-6.0) % 08/11/20 08/11/20 Range/Units 06:03 08:56 Sodium 136 L (137-145) mmol/L Chloride 94 L (98-107) mmol/L Carbon Dioxide 21 L (22-30) mmol/L BUN 116 H* (9-20) mg/dL Creatinine 8.14 H* (0.66-1.25) mg/dL Glucose 320 H (74-99) mg/dL POC Glucose (mg/dL) 299 H (75-99) mg/dL Hemoglobin A1c (4.0-6.0) % Assessment and Plan Assessment: Right basilar pneumonia with a right parapneumonic effusion, rule out empyema. New onset fibrillation with RVR, currently on amiodarone. Status post right-sided thoracentesis, with 400 mL of bloody fluid removed and sent to laboratory for analysis. Possible NSTEMI. History of end-stage renal disease, currently on peritoneal dialysis. History of diabetes mellitus. History of hyperlipidemia. History of hypertension. History of coronary artery disease. History of hypothyroidism. History of COPD from previous heavy tobacco use. Anemia of chronic disease. Plan: Plan dated 08/10/2020. The patient's updrafts were changed to him. Also think and ipratropium bromide, 4 times a day and when necessary. In addition, we discontinued Symbicort, and fever up Pulmicort 1 mg, mixed with formoterol, 20 g, twice a day. In addition, we discontinued prednisone in favor of Solu-Medrol. Finally, we stopped the ceftriaxone and started the patient on Zosyn and vancomycin. The patient is to have a thoracentesis performed by interventional radiology today. We'll send it for chemistry including LDH, protein, glucose, cytology, and microbiology. Additional recommendations and suggestions are forthcoming. Prognosis is guarded. Plan dated 08/11/2020. Currently, the patient appears to be a bit better following the thoracentesis. His atrial fibrillation spontaneously O went back into normal sinus rhythm. He was placed on amiodarone by IV infusion. Cardiology did not want IV heparin at this time. The fluid analysis will be done and hopefully help us determine what's going on in his right chest area. 400 mL of bloody fluid was withdrawn during the right thoracentesis. The patient tolerated procedure well. There is no postprocedure pneumothorax. The patient continues on antibiotics. Prognosis is guarded. He is currently on 3 L. Saturations are 92-93%. Time with Patient: Less than 30
--- NOTE | 2020-08-11 10:13 | PN ---
PROGRESS NOTE Patient is seen for followup for end-stage renal disease this morning. The patient developed atrial fibrillation with RVR this morning and was more short of breath. He has been maintained on 4.25% solution exchanges q.4 hours and has had improvement in his volume status. His respiratory status had improved significantly until the development of atrial fibrillation with RVR. There are also plans for thoracentesis today. No complaints of chest pain. Currently patient is awake, comfortable. His family is present at bedside including his and daughter. PHYSICAL EXAMINATION: On examination today, blood pressure 134/71, heart rate 85 per minute. Patient is comfortable, awake. He is not in any acute distress. No significant edema noted in his lower extremities. BUSINESS OPERATIONS SPECIALIST exam grossly intact. LABS: Blood sugars are running on the high side. Labs are pending from today. ASSESSMENT: 1. End-stage renal disease, maintained on peritoneal dialysis, currently receiving 4.25% exchanges q.4 hours with good UF of about 600-500 cc every exchange. 2. Volume overload, currently improved. 3. Atrial fibrillation with rapid ventricular response, maintained on amiodarone and Cardizem drip. 4. Pneumonia with loculated pleural effusion, scheduled for thoracentesis today. 5. Acute hypoxic respiratory failure secondary to congestive heart failure, currently improved. Currently more short of breath secondary to atrial fibrillation with RVR. Expect improvement with controlled heart rate. 6. Hyperglycemia secondary to increased 4.25% exchanges with peritoneal dialysis and the insulin needs to be adjusted. 7. Anemia of chronic disease. No active bleeding noted currently. PLAN: Continue with the current exchanges. Continue with Aranesp. Continue with IV Lasix and repeat labs in a.m. MMODL / IJN: [id number] /
[2020-08-11 11:12] LABS: Appearance,BF Bloody; RBC, Body Fluid 154000 /uL
--- NOTE | 2020-08-11 11:12 | P.CRDCN ---
History of Present Illness History of present illness: HISTORY OF PRESENTING ILLNESS This is a pleasant 74-year-old male past medical history significant for end-stage renal disease on peritoneal dialysis, hypertension, dyslipidemia, COPD, diabetes mellitus, peripheral vascular disease status post right carotid endarterectomy and femoral bypass, former nicotine dependence and recent non-ST elevated myocardial infarction that was treated medically at [facility]. He follows in the office with a poll watcher at [facility]. We have been asked to see in consultation for elevated troponin. He presented to the hospital with worsening shortness of breath. He was transferred from [facility] where he was being treated for NSTEMI, pneumonia and heart failure. He did not get a [facility] due to inability to lay flat to tolerate the procedure. Initial presentation there is EKG revealed ST depression in the lateral leads with troponin peak at 6. His medical regimen was optimized with Plavix and statins. Chest x-ray and ultrasound obtained here on admission revealed a right pleural effusion pocket size of 5.4 cm. He had been being actively diuresed over the previous 2 weeks however he was not having significant urine output according to the daughter who is a nurse. Prior to admission for that he was averaging 2 L of urine output per day despite being on dialysis. This morning he is seen and examined in significant respiratory distress. He went into a brief transient episode of atrial fibrillation with rapid ventricular rate and was complaining of chest tightness. EKG was unable to be obtained due to his respiratory status. Pu lmonary was called and they came to the bedside and performed a thoracentesis. 400 mL's of fluid was removed. Chest x-ray obtained thereafter revealed pulmonary vascular prominence stable from previous exam, patchy airspace opacity at the right lung base and tiny bilateral pleural effusions with no evidence of pneumothorax status post thoracentesis. Shortly after undergoing thoracentesis he converted back to sinus mechanism. Laboratory data reviewed, sodium 136, potassium 4.8, creatinine 8.14, WBC 20.6, hemoglobin 8.6, platelets 251, magnesium 2.7. Limited echocardiogram obtained at [facility] reveals ejection fraction 55% with evidence of inferior lateral wall motion hypokinesia with no significant MR or TR. REVIEW OF SYSTEMS At the time of my exam: CONSTITUTIONAL: Denies fever or chills. CARDIOVASCULAR: Complains of shortness of breath and orthopnea. Denies chest pain, PND or palpitations. RESPIRATORY: Denies cough. GASTROINTESTINAL: Denies abdominal pain, diarrhea, constipation, nausea or vomiting. MUSCULOSKELETAL: Denies myalgias. NEUROLOGIC: Denies numbness, tingling, headacbe or weakness. ENDOCRINE: Denies fatigue, weight change, polydipsia or polyurina. GENITOURINARY: Denies burning, hematuria or urgency with micturation. HEMATOLOGIC: Denies history of anemia or bleeding. PHYSICAL EXAMINATION Blood pressure 134/71 heart rate 115 afebrile and maintaining oxygen saturation on nasal cannula. CONSTITUTIONAL: Mild respiratory distress, improved after thoracentesis. HEENT: Head is normocephalic. Pupils are equal, round. Sclerae anicteric. Mucous membranes of the mouth are moist. No JVD. No carotid bruit. CHEST EXAMINATION: Bibasilar rales, scattered rhonchi and diffuse expiratory wheezes. No chest wall tenderness is noted on palpation or with deep breathing. HEART EXAMINATION: Regular rate and rhythm. S1, S2 heard. No murmurs, gallops or rub. ABDOMEN: Soft, nontender. Positive bowel sounds. EXTREMITIES: 2+ peripheral pulses, no lower extremity edema and no calf tenderness. NEUROLOGIC EXAMINATION: Patient is awake, alert and oriented x3. ASSESSMENT Brief episode of atrial fibrillation with rapid ventricular response Pneumonia Pleural effusion End-stage renal disease on peritoneal dialysis Diabetes mellitus Hypertension Dyslipidemia Peripheral vascular disease Recent non-ST elevated myocardial infarction PLAN Give amiodarone 300 mg bolus over one hour. His episode of atrial fibrillation was transient and lasted less than 30 minutes . We will hold off on anticoagulation at this time. Continue aspirin, atorvastatin, Lopressor and Plavix to maximize his likely underlying coronary artery disease. Nephrology following and managing diuretics. Document accurate intake and output along with daily weights. Obtain repeat limited echocardiogram to assess cardiac structure and function. Further recommendations to follow based upon clinical course. Thank you kindly for this consultation. Nurse Practitioner note has been reviewed, I agree with a documented findings and plan of care. Patient was seen and examined. Past Medical History Past Medical History: Coronary Artery Disease (CAD), COPD, Diabetes Mellitus, Hyperlipidemia, Hypertension, Osteoarthritis (OA), Renal Disease, Thyroid Dis order Additional Past Medical History / Comment(s): end stage kidney failure, cyst in kidney, peritoneal dialysis History of Any Multi-Drug Resistant Organisms: None Reported Past Surgical History: Appendectomy, Cholecystectomy, Orthopedic Surgery Additional Past Surgical History / Comment(s): Right carotid endarterectomy, AAA with femoral bypass, andi knee arthroscopy, andi cataracts Past Anesthesia/Blood Transfusion Reactions: Motion Sickness Past Psychological History: No Psychological Hx Reported Smoking Status: Former smoker Past Alcohol Use History: None Reported Additional Past Alcohol Use History / Comment(s): smokes 1/2 PPD, has smoked over 50 yrs, quit August 2019 Past Drug Use History: None Reported - Past Family History Mother Family Medical History: No Reported History Medications and Allergies Home Medications Medication Instructions Recorded Confirmed Type Aspirin 81 mg PO DAILY 01/06/15 08/09/20 History Levothyroxine Sodium [Synthroid] 25 mcg PO DAILY 01/06/15 08/09/20 History Rosuvastatin [Crestor] 20 mg PO DAILY 08/13/19 08/09/20 History carvediloL [Coreg] 3.125 mg PO BID 08/13/19 08/09/20 History Linagliptin [Tradjenta] 5 mg PO DAILY 01/01/20 08/09/20 History Nephro-Mikayla 0.8mg 0.8 mg PO DAILY 01/01/20 08/09/20 History Sevelamer Carbonate 800 mg PO TID-W/MEALS 01/01/20 08/09/20 History rOPINIRole HCL [rOPINIRole HCL ER] 4 mg PO DAILY 01/01/20 08/09/20 History Calcium Acetate [Phoslo] 667 mg PO TID-W/MEALS 08/09/20 08/09/20 History Diclofenac Sodium [Voltaren Gel] 2 gram TOPICAL QID PRN 08/09/20 08/09/20 History Ferrous Sulfate [Feosol] 325 mg PO DAILY 08/09/20 08/09/20 History Losartan Potassium [Cozaar] 100 mg PO HS 08/09/20 08/09/20 History Nitroglycerin Sl Tabs [Nitrostat] 0.4 mg SUBLINGUAL Q5M PRN 08/09/20 08/09/20 History Vitamin D Complete W/Iron 1 tab PO DAILY 08/09/20 08/09/20 History Allergies Allergy/AdvReac Type Severity Reaction Status Date / Time Iodinated Contrast Media Allergy SEE Verified 08/09/20 18:14 [Iodinated Contrast Media - COMMENTS IV Dye] codeine AdvReac Nausea & Verified 08/09/20 18:14 Vomiting Physical Exam Vitals: Vital Signs Temp Pulse Pulse Resp BP Pulse Ox 08/11/20 04:00 98.2 F 85 20 134/71 91 L 08/11/20 02:00 88 22 08/10/20 23:42 98.8 F 88 22 134/66 92 L 08/10/20 20:44 96 08/10/20 20:35 96 08/10/20 20:34 96 08/10/20 20:20 96 96 08/10/20 20:00 97.4 F L 82 20 140/66 94 L 08/10/20 16:00 97.5 F L 83 28 H 138/69 93 L 08/10/20 15:40 96 08/10/20 15:28 88 08/10/20 14:00 83 28 H 08/10/20 12:00 97.3 F L 82 22 162/81 92 L 08/10/20 11:35 92 08/10/20 11:24 90 08/10/20 10:00 28 H 08/10/20 08:15 97.5 F L 90 28 H 146/76 91 L Intake and Output 08/10/20 08/11/20 08/11/20 22:59 06:59 14:59 Intake Total 280 Output Total 150 Balance 280 -150 Intake: Oral 280 Output: Urine 150 Other: Voiding Method External Catheter External Catheter Weight 106.5 kg Results 08/10/20 07:28 08/11/20 08:56 Cardiac Enzymes 08/10/20 Range/Units 07:28 AST 41 (17-59) U/L Coagulation 08/10/20 Range/Units 09:49 PT 11.6 (9.0-12.0) sec Comprehensive Metabolic Panel 08/10/20 Range/Units 07:28 Sodium 136 L (137-145) mmol/L Potassium 4.9 (3.5-5.1) mmol/L Chloride 92 L (98-107) mmol/L Carbon Dioxide 25 (22-30) mmol/L BUN 119 H* (9-20) mg/dL Creatinine 8.58 H* (0.66-1.25) mg/dL Glucose 276 H (74-99) mg/dL Calcium 8.3 L (8.4-10.2) mg/dL AST 41 (17-59) U/L ALT 44 (4-49) U/L Alkaline Phosphatase 88 (38-126) U/L Total Protein 5.9 L (6.3-8.2) g/dL Albumin 3.3 L (3.5-5.0) g/dL Current Medications Generic Name Dose Route Start Last Admin Trade Name Freq PRN Reason Stop Dose Admin Acetaminophen 650 mg 08/09/20 19:17 Acetaminophen Tab 325 Mg Tab PO Q6HR PRN Mild Pain or Fever > 100.5 Hydrocodone Bitart/Acetaminophen 1 each 08/09/20 21:30 Hydrocodone/Apap 5-325mg 1 Each Tab PO Q6HR PRN Pain Albuterol/Ipratropium 3 ml 08/09/20 21:31 08/10/20 11:22 Ipratropium-Albuterol 3 Ml Neb INHALATION 3 ml RT-Q2H PRN Administration Shortness Of Breath Or Wheezing Albuterol/Ipratropium 3 ml 08/10/20 16:00 08/11/20 08:03 Ipratropium-Albuterol 3 Ml Neb INHALATION 3 ml RT-QID GIDEON Administration Aspirin 81 mg 08/10/20 09:00 08/11/20 07:36 Aspirin 81 Mg PO 81 mg DAILY GIDEON Administration Atorvastatin Calcium 80 mg 08/09/20 21:45 08/10/20 20:51 Atorvastatin 80 Mg Tab PO 80 mg HS GIDEON Administration Budesonide 1 mg 08/10/20 20:00 08/11/20 08:03 Budesonide 1 Mg/2 Ml Nebu INHALATION 1 mg RT-BID GIDEON Administration Clopidogrel Bisulfate 75 mg 08/10/20 09:00 08/11/20 07:36 Clopidogrel 75 Mg Tab PO Not Given DAILY GIDEON Darbepoetin Sal 60 mcg 08/10/20 14:00 08/10/20 16:11 Darbepoetin Sal 60 Mcg/0.3 Ml Syringe SQ 60 mcg Q7D GIDEON Administration Docusate Sodium 100 mg 08/10/20 17:30 08/11/20 07:36 Docusate 100 Mg Cap PO Not Given DAILY GIDEON Formoterol Fumarate 20 mcg 08/10/20 20:00 08/11/20 08:03 Formoterol Fumarate 20 Mcg/2 Ml Nebu INHALATION 20 mcg RT-BID GIDEON Administration Furosemide 80 mg 08/10/20 14:00 08/11/20 06:37 Furosemide 10 Mg/Ml 10 Ml Vial IV 80 mg 0600,1800 GIDEON Administration Heparin Sodium (Porcine) 5,000 unit 08/10/20 00:00 08/11/20 07:37 Heparin Sodium,Porcine/Pf 5,000 Unit/0.5 Ml Syringe SQ Not Given Q8HR GIDEON Peritoneal Dialysis Solution 106.25 g in 2,500 mls @ 0 mls/hr 08/10/20 10:00 08/11/20 06:00 Delflex With 4.25% Dextrose (2,500 Ml) INTRAPERIT 2,500 mls/hr Q4H GIDEON Administration Protocol As Directed Piperacillin Sod/Tazobactam 100 mls @ 25 mls/hr 08/10/20 12:00 08/10/20 22:57 Sod 3.375 gm/ Sodium Chloride IVPB 25 mls/hr Q12H GIDEON Administration Vancomycin HCl 1,750 mg/ 500 mls @ 167 mls/hr 08/11/20 09:00 Sodium Chloride IVPB 08/11/20 11:59 ONCE ONE Diltiazem HCl 125 mg/ Sodium 125 mls @ 5 mls/hr 08/11/20 08:30 Chloride IV .Q24H GIDEON 5 MG/HR Insulin Aspart 0 unit 08/09/20 21:00 08/11/20 06:37 Insulin Aspart (Novolog) 100 Unit/Ml Vial SQ 12 unit ACHS GIDEON Administration Protocol Insulin Detemir 10 unit 08/10/20 21:00 08/11/20 07:36 Insulin Detemir (Levemir) 100 Unit/Ml Syr SQ 10 unit BID GIDEON Administration Isosorbide Dinitrate 20 mg 08/09/20 22:15 08/11/20 07:36 Isosorbide Dinitrate 20 Mg Tab PO 20 mg BID GIDEON Administration Levothyroxine Sodium 25 mcg 08/10/20 06:30 08/11/20 06:37 Levothyroxine 25 Mcg Tab PO 25 mcg DAILY@0630 GIDEON Administration Melatonin 3 mg 08/09/20 19:17 Melatonin 3 Mg Tablet PO HS PRN Insomnia Methylprednisolone Sodium Succinate 60 mg 08/10/20 12:00 08/11/20 06:37 Methylprednisolone Sod Succi 125 Mg/2 Ml Vial IV 60 mg Q6HR GIDEON Administration Metoprolol Tartrate 12.5 mg 08/10/20 09:00 08/11/20 07:35 Metoprolol Tartrate 12.5 Mg Tab PO 12.5 mg DAILY GIDEON Administration Miscellaneous Information 1 each 08/10/20 11:31 Vancomycin Iv Per Pharmacy 1 Each [facility] MISCELLANE DIRECTED PRN Per Protocol Protocol Naloxone HCl 0.2 mg 08/09/20 19:17 Naloxone 0.4 Mg/Ml 1 Ml Vial IV Q2M PRN Opioid Reversal Ondansetron HCl 4 mg 08/09/20 19:17 Ondansetron 4 Mg/2 Ml Vial IVP Q8HR PRN Nausea And Vomiting Pantoprazole Sodium 40 mg 08/09/20 22:00 08/11/20 06:37 Pantoprazole 40 Mg Tablet PO 40 mg AC-BID GIDEON Administration Sevelamer Carbonate 800 mg 08/10/20 07:30 08/11/20 07:36 Sevelamer 800 Mg Tab PO 800 mg TID-W/MEALS GIDEON Administration Tramadol HCl 50 mg 08/09/20 22:15 08/11/20 07:52 Tramadol 50 Mg Tab PO 50 mg TID PRN Administration Pain Intake and Output 08/10/20 08/11/20 08/11/20 22:59 06:59 14:59 Intake Total 280 Output Total 150 Balance 280 -150 Intake: Oral 280 Output: Urine 150 Other: Voiding Method External Catheter External Catheter Weight 106.5 kg 08/10/20 07:28 08/10/20 07:28
[2020-08-11 11:13] LABS: Nucleated Cells, Body Fluid 2100 /uL
[2020-08-11 11:18] LABS: Mononuclear WBC,Body Fluid 8 %; Polynuclear WBC,Body Fluid 92 %; Total Cells Counted,Body Fluid 100
[2020-08-11] MEDS ORDERED: methylPREDNISolone SOD SUCCI 125 MG/2 ML VIAL IV STA (11:31)
[2020-08-11] MEDS ORDERED: diphenhydrAMINE 50 MG/ML 1 ML VIAL IVP STA (11:31)
[2020-08-11] MEDS ORDERED: FAMOTIDINE 20 MG/2 ML VIAL IV SCH (11:45)
[2020-08-11 12:09] LABS: Glucose,Whole Blood 383 mg/dL (75-99)
[2020-08-11] MEDS ORDERED: diphenhydrAMINE 25 MG CAP PO ONE (12:30)
--- NOTE | 2020-08-11 13:24 | P.PN ---
Subjective Progress Note Date: 08/11/20 Patient is doing fairly well today. No acute events overnight. Objective - Vital Signs Vital signs: Vital Signs Temp 97.8 F 08/11/20 12:00 Pulse 72 08/11/20 12:00 Resp 25 H 08/11/20 12:00 BP 127/62 08/11/20 12:00 Pulse Ox 91 L 08/11/20 12:00 Intake & Output 08/10/20 08/11/20 08/11/20 18:59 06:59 18:59 Intake Total 660 100 Output Total 150 Balance 660 -50 Weight 106.5 kg Intake: Oral 660 100 Output: Urine 150 Other: Voiding Method External Catheter External Catheter # Voids 0 - Exam General: The patient is awake and alert, in no distress Eye: there is normal conjunctiva bilaterally. Neck: The neck is supple, there is no JVD. Cardiovascular: Normal S1-S2, no S3-S4, no murmurs. Respiratory: Lungs clear to auscultation bilaterally Gastrointestinal: Abdomen is soft, nontender Musculoskeletal: There is no pedal edema. Neurological:. Speech is normal. Skin: Skin is warm and dry - Labs CBC & Chem 7: 08/10/20 07:28 08/11/20 08:56 Labs: Abnormal Lab Results - Last 24 Hours (Table) 08/10/20 08/10/20 08/10/20 Range/Units 07:28 16:48 16:49 Sodium (137-145) mmol/L Chloride (98-107) mmol/L Carbon Dioxide (22-30) mmol/L BUN (9-20) mg/dL Creatinine (0.66-1.25) mg/dL Glucose (74-99) mg/dL POC Glucose (mg/dL) 475 H 476 H (75-99) mg/dL Hemoglobin A1c 6.5 H (4.0-6.0) % 08/10/20 08/10/20 08/11/20 Range/Units 20:10 22:54 01:01 Sodium (137-145) mmol/L Chloride (98-107) mmol/L Carbon Dioxide (22-30) mmol/L BUN (9-20) mg/dL Creatinine (0.66-1.25) mg/dL Glucose (74-99) mg/dL POC Glucose (mg/dL) 544 H 444 H 380 H (75-99) mg/dL Hemoglobin A1c (4.0-6.0) % 08/11/20 08/11/20 08/11/20 Range/Units 03:04 05:07 06:03 Sodium (137-145) mmol/L Chloride (98-107) mmol/L Carbon Dioxide (22-30) mmol/L BUN (9-20) mg/dL Creatinine (0.66-1.25) mg/dL Glucose (74-99) mg/dL POC Glucose (mg/dL) 341 H 342 H 299 H (75-99) mg/dL Hemoglobin A1c (4.0-6.0) % 08/11/20 08/11/20 Range/Units 08:56 12:07 Sodium 136 L (137-145) mmol/L Chloride 94 L (98-107) mmol/L Carbon Dioxide 21 L (22-30) mmol/L BUN 116 H* (9-20) mg/dL Creatinine 8.14 H* (0.66-1.25) mg/dL Glucose 320 H (74-99) mg/dL POC Glucose (mg/dL) 383 H (75-99) mg/dL Hemoglobin A1c (4.0-6.0) % Assessment and Plan Assessment: This is a 74-year-old male with complex past medical history who was transferred from [facility] to our facility per family request. Patient was hospitalized for a few days prior to his transfer. He is currently admitted to our hospital for further management of medical problems noted below. 1. Healthcare acquired pneumonia with right parapneumonic effusion: Currently on broad-spectrum antibiotic with vancomycin and Zosyn. Status post thoracentesis with approximately 400 mL of fluid drained. Awaiting culture results 2. Non-ST elevation [place], treated with optimal medical management at outside hospital. Unable to perform left heart cath as patient was unable to lay flat. Continue dual antiplatelet therapy and beta blockers. Will require left heart cath when overall clinical condition improved. Cardiology consulted for further management 3. End-stage renal disease on peritoneal dialysis at home. Nephrology consulted and following closely 4. Acute hypoxic respiratory failure 5. Acute COPD exacerbation, started on bronchodilators and IV steroids. Pulmonary following closely. 6. Type 2 diabetes with steroid-induced hyperglycemia, continue sliding scale insulin. I adjusted his Levemir dose. We will continue to monitor closely 7. Chronic medical problems, anemia of chronic disease, hypothyroidism, essen tial hypertension, hyperlipidemia
--- NOTE | 2020-08-11 13:30 | CT ---
EXAMINATION TYPE: CT chest angio for PE DATE OF EXAM: 08/11/2020 COMPARISON: None HISTORY: Shortness of breath and chest pain CT DLP: 487 mGycm CONTRAST: CT chest with contrast and 3D reconstruction with MIP imaging is performed with IV Contrast, patient injected with 100 mL of Isovue 370. Contrast-enhanced CT of the chest was performed through the course of the pulmonary arteries with jay g and mediastinal window settings submitted. 3D reconstruction with MIP imaging was also performed. PULMONARY ARTERIES: The pulmonary arteries and their major tributaries are patent. I do not see sudarshan dence for sizable filling defect to suggest pulmonary embolic process. LUNGS: Bilateral pleural effusions right greater than left some of which appears to be loculated. Ass ociated mild compressive atelectasis. MEDIASTINUM: Thoracic aorta is of normal caliber,however, evaluation is limited given timing of the contrast bolus. If there is concern for thoracic aortic pathology consider KAVITA. Correlate clinicall y . The heart is enlarged. No evidence for mediastinal mass. No mediastinal lymph nodes greater marlene n 1cm. HILAR STRUCTURES: No evidence for mass. No hilar lymph nodes greater than 1 cm. UPPER ABDOMEN: No significant abnormality is seen. IMPRESSION: 1. No evidence for Pulmonary embolism at this time.
[2020-08-11] MEDS: PIPERACILLIN-TAZOBACTAM 3.375 GM in SODIUM CHLORIDE 0.9% 100 ML IVPB SCH (15:13)
[2020-08-11 16:45] LABS: Glucose,Whole Blood 363 mg/dL (75-99)
[2020-08-11 17:24] LABS: Glucose, BF Source Pleural Fluid; Glucose, Body Fluid 276 mg/dL; LDH, Body Fluid Source Pleural Fluid; Total Protein, Body Fluid 3700 mg/dL
[2020-08-11 20:10] LABS: Glucose,Whole Blood 419 mg/dL (75-99)
[2020-08-11] MEDS: ATORVASTATIN 80 MG TAB PO SCH (20:53)
[2020-08-11] MEDS: methylPREDNISolone SOD SUCCI 40 MG/ML 1 ML VIAL IV SCH (20:53)
[2020-08-11] MEDS ORDERED: INSULIN DETEMIR (LEVEMIR) 100 UNIT/ML SYR SQ STA (20:58)
[2020-08-11 23:05] LABS: Glucose,Whole Blood 370 mg/dL (75-99)
[2020-08-12] MEDS: DIALYSIS (PERIT 4.25%) 2500 ML 106.25 G/2,500 ML BAG INTRAPERIT SCH ×6 (02:02→22:02)
[2020-08-12] MEDS: PIPERACILLIN-TAZOBACTAM 3.375 GM in SODIUM CHLORIDE 0.9% 100 ML IVPB SCH ×2 (05:56→16:52)
[2020-08-12 06:04] LABS: Glucose,Whole Blood 337 mg/dL (75-99)
[2020-08-12] MEDS: SEVELAMER 800 MG TAB PO SCH ×3 (06:12→16:52)
[2020-08-12] MEDS: PANTOPRAZOLE 40 MG TABLET PO SCH ×2 (06:12→16:52)
[2020-08-12] MEDS: LEVOTHYROXINE 25 MCG TAB PO SCH (06:12)
[2020-08-12] MEDS: FUROSEMIDE 10 MG/ML 10 ML VIAL IV SCH ×2 (06:13→17:30)
[2020-08-12] MEDS: INSULIN ASPART (NovoLOG) 100 UNIT/ML VIAL SQ SCH ×7 (06:13→21:01)
[2020-08-12 07:05] LABS: Glucose,Whole Blood 353 mg/dL (75-99)
[2020-08-12] MEDS: BUDESONIDE 1 MG/2 ML NEBU INHALATION SCH ×2 (08:40→19:12)
[2020-08-12] MEDS: FORMOTEROL FUMARATE 20 MCG/2 ML NEBU INHALATION SCH ×2 (08:40→19:13)
[2020-08-12] MEDS: IPRATROPIUM-ALBUTEROL 3 ML NEB INHALATION SCH ×4 (08:40→19:12)
[2020-08-12] MEDS: HEPARIN SODIUM,PORCINE/PF 5,000 UNIT/0.5 ML SYRINGE SQ SCH ×3 (08:54→22:53)
[2020-08-12] MEDS: DOCUSATE 100 MG CAP PO SCH (08:55)
[2020-08-12] MEDS: FAMOTIDINE 20 MG TAB PO SCH (08:55)
[2020-08-12] MEDS: ISOSORBIDE DINITRATE 20 MG TAB PO SCH ×2 (08:55→20:04)
[2020-08-12] MEDS: CLOPIDOGREL 75 MG TAB PO SCH (08:55)
[2020-08-12] MEDS: METOPROLOL TARTRATE 12.5 MG TAB PO SCH (08:55)
[2020-08-12] MEDS: ASPIRIN 81 MG PO SCH (08:55)
[2020-08-12] MEDS: methylPREDNISolone SOD SUCCI 40 MG/ML 1 ML VIAL IV SCH ×2 (08:56→20:04)
[2020-08-12] MEDS ORDERED: INSULIN DETEMIR (LEVEMIR) 100 UNIT/ML SYR SQ SCH (09:00)
--- NOTE | 2020-08-12 10:57 | P.PN ---
Subjective Progress Note Date: 08/12/20 Principal diagnosis: Shortness of breath, right-sided pleural effusion 74-year-old male, transferred over to the hospital, from [facility] per family request. The patient was initially taken to [facility], and then transferred to [facility] on August 02. He apparently been feeling poorly for a couple days or so or maybe a bit longer, prior to admission, with complaints of difficulty breathing, fever, and right-sided chest pain. The patient was initially seen at [facility], and transferred down to [facility]. Yesterday, was notified by one of his daughters who is a nurse, that the family wanted the patient transferred down to [facility]. The patient was transferred yesterday. According to one of the daughters, the patient was needing to have a thoracentesis. Apparently there was a date from pulmonary services and interventional radiology, in terms of who should do the thoracentesis. Anyway, it was apparently frustrating to the family and the patient was transferred he re. The patient is to have a thoracentesis performed by interventional radiology here today. White count 20.6, hemoglobin 8.6, hematocrit 26.3, and platelet count 251,000. PT INR are normal. Sodium 136, potassium 4.9, chlorides 92, CO2 25, anion gap 19, BUN 119, and creatinine 8.58. Chest x-ray and ultrasound of the right chest are reviewed. In addition, we added some Solu-Medrol, DC his Symbicort in favor of Pulmicort and formoterol, and added stronger antibiotics including Zosyn and vancomycin. Progress note dated 08/11/2020. 74-year-old male transferred from [facility]. The patient underwent a right-sided thoracentesis today by myself. 400 mL of bloody fluid was removed from the right pleural space. The follow-up chest x-ray looks much better. There is no obvious pneumothorax. Currently, the patient's on a couple liters of nasal O2. He apparently did develop spontaneous atrial fibrillation with RVR this morning. He was placed on amiodarone drip. Cardiology is going to see the patient but apparently did not want IV heparin at this time. The patient's currently on Zosyn and vancomycin. He was seen yesterday in consultation. Sodium 136, potassium 4.8, chlorides 94, CO2 21, anion gap 21, BUN 116, and creatinine 8.14. The patient is seen today 08/12/2020 in follow-up on the selective care unit. He is currently sitting up at the bedside. Awake and alert in no acute distress. Maintaining O2 saturations in the 90s on room air. Afebrile. Hemodynamically stable. CAT scan had revealed bilateral pleural effusions right greater than left some of which appeared loculated. He did undergo a thoracentesis on the right with 400 mL returned. Fluid analysis positive for exudate. Pathology pending. Cultures pending. He remains on DuoNeb inhalations, Pulmicort and Perforomist inhalations, IV Solu-Medrol. Currently on antibiotics in the form of Zosyn and vancomycin. Objective - Vital Signs Vital signs: Vital Signs Temp 97.7 F 08/12/20 07:45 Pulse 78 08/12/20 09:00 Resp 22 08/12/20 08:10 BP 118/66 08/12/20 07:45 Pulse Ox 93 L 08/12/20 07:45 Intake & Output 08/11/20 08/12/20 08/12/20 18:59 06:59 18:59 Intake Total 50 240 Output Total 50 150 Balance -50 -100 240 Weight 110 kg Intake: Oral 50 240 Output: Urine 50 150 Other: Voiding Method Urinal Urinal Urinal - Exam GENERAL EXAM: Alert, pleasant 74-year-old gentleman, on room air, comfortable in no apparent distress. HEAD: Normocephalic. EYES: Normal reaction of pupils, equal size. NOSE: Clear with pink turbinates. THROAT: No erythema or exudates. NECK: No masses, no JVD. CHEST: No chest wall deformity. LUNGS: Equal air entry with basilar crackles. CVS: S1 and S2 normal with no audible murmur, regular rhythm. ABDOMEN: No hepatosplenomegaly, normal bowel sounds, no guarding or rigidity. SPINE: No scoliosis or deformity SKIN: No rashes CENTRAL NERVOUS SYSTEM: No focal deficits, tone is normal in all 4 extremities. EXTREMITIES: There is no peripheral edema. No clubbing, no cyanosis. Peripheral pulses are intact. - Labs CBC & Chem 7: 08/10/20 07:28 08/11/20 08:56 Labs: Abnormal Lab Results - Last 24 Hours (Table) 08/11/20 08/11/20 08/11/20 Range/Units 12:07 16:44 20:06 POC Glucose (mg/dL) 383 H 363 H 419 H (75-99) mg/dL 08/11/20 08/12/20 08/12/20 Range/Units 23:03 06:02 07:02 POC Glucose (mg/dL) 370 H 337 H 353 H (75-99) mg/dL Microbiology - Last 24 Hours (Table) 08/11/20 08:40 Gram Stain - Preliminary Pleural Fluid Body Fluid Culture - Preliminary 08/11/20 08:40 Acid Fast Bacilli Smear - Final Pleural Fluid Acid Fast Bacilli Culture - Preliminary 08/11/20 08:40 Fungal Culture - Preliminary Pleural Fluid Assessment and Plan Assessment: 1 Right basilar pneumonia with right parapneumonic effusion, rule out empyema 2 New-onset atrial fibrillation with rapid ventricular response 3 Bilateral pleural effusions right greater than left, status post right-sided thoracentesis on 08/11/2020 4 Possible non-ST segment elevation myocardial infarctions 5 History of end-stage renal disease, currently on peritoneal dialysis 6 Diabetes mellitus 7 Hypertension 8 Hyperlipidemia 9 History of coronary disease 10 Hypothyroidism 11 Chronic obstructive pulmonary disease 12 Previous heavy tobacco dependence 13 Anemia of chronic disease Lang: The patient was seen and evaluated by Dr. Alfaro Pleural fluid exudate in nature Cultures pending, pathology pending Continue Zosyn, discontinue vancomycin Continue bronchodilators, IV Solu-Medrol We will continue to follow and make further recommendations based on his clinical status I, the cosigning physician, performed a history & physical examination of the patient. Lungs sounds with crackles in the posterior bases. Maintaining good O2 saturations in the 90s on room air. I discussed the assessment and plan of care with my nurse practitioner, Evie Dumont. I attest to the above note as dictated by her.
[2020-08-12 11:03] LABS: Potassium 4.6 mmol/L (3.5-5.1)
[2020-08-12 11:57] LABS: Glucose,Whole Blood 443 mg/dL (75-99)
--- NOTE | 2020-08-12 12:18 | P.PN ---
Subjective HISTORY OF PRESENTING ILLNESS This is a pleasant 74-year-old male past medical history significant for end-stage renal disease on peritoneal dialysis, hypertension, dyslipidemia, COPD, diabetes mellitus, peripheral vascular disease status post right carotid endarterectomy and femoral bypass, former nicotine dependence and recent non-ST elevated myocardial infarction that was treated medically at [place]. He follows in the office with a chief load dispatcher at [place]. We have been asked to see in consultation for elevated troponin. He presented to the hospital with worsening shortness of breath. He was transferred from [place] where he was being treated for NSTEMI, pneumonia and heart failure. He did not get a [facility] due to inability to lay flat to tolerate the procedure. Initial presentation there is EKG revealed ST depression in the lateral leads with troponin peak at 6. His medical regimen was optimized with Plavix and statins. Chest x-ray and ultrasound obtained here on admission revealed a right pleural effusion pocket size of 5.4 cm. He had been being actively diuresed over the previous 2 weeks however he was not having significant urine output according to the daughter who is a nurse. Prior to admission for that he was averaging 2 L of urine output per day despite being on dialysis. This morning he is seen and examined in significant respiratory distress. He went into a brief transient episode of atrial fibrillation with rapid ventricular rate and was complaining of chest tightness. EKG was unable to be obtained due to his respiratory status. Pulmonary was called and they came to the bedside and performed a thoracentesis. 400 mL's of fluid was removed. Chest x-ray obtained thereafter revealed pulmo nary vascular prominence stable from previous exam, patchy airspace opacity at the right lung base and tiny bilateral pleural effusions with no evidence of pneumothorax status post thoracentesis. Shortly after undergoing thoracentesis he converted back to sinus mechanism. Laboratory data reviewed, sodium 136, potassium 4.8, creatinine 8.14, WBC 20.6, hemoglobin 8.6, platelets 251, magnesium 2.7. Limited echocardiogram obtained at [facility] reveals ejection fraction 55% with evidence of inferior lateral wall motion hypokinesia with no significant MR or TR. 08/12/2020 Pt seen and examined sitting up in bed in no acute distress. His breathing has greatly improved. No further episodes of afib noted on telemetry. Blood pressure 115/59 heart rate 98 afebrile maintaining oxygen saturation on nasal cannula. Laboratory data reviewed, sodium 136, potassium 4.6, creatinine 8.31. 24-hour urine output is 200 mL's. PHYSICAL EXAMINATION CONSTITUTIONAL: Mild respiratory distress, improved after thoracentesis. HEENT: Head is normocephalic. Pupils are equal, round. Sclerae anicteric. Mucous membranes of the mouth are moist. No JVD. No carotid bruit. CHEST EXAMINATION: Scattered rhonchi and faint expiratory wheezes. No chest wall tenderness is noted on palpation or with deep breathing. HEART EXAMINATION: Regular rate and rhythm. S1, S2 heard. No murmurs, gallops or rub. EXTREMITIES: 2+ peripheral pulses, no lower extremity edema and no calf tenderness. ASSESSMENT Brief episode of atrial fibrillation with rapid ventricular response Pneumonia Pleural effusion End-stage renal disease on peritoneal dialysis Diabetes mellitus Hypertension Dyslipidemia Peripheral vascular disease Recent non-ST elevated myocardial infarction PLAN No further episodes of atrial fibrillation. Obtain repeat limited echocardiogram to assess cardiac structure and function. Ongoing treatment of pneumonia. Nurse Practitioner note has been reviewed, I agree with a documented findings and plan of care. Patient was seen and examined. Objective - Vital Signs Vital signs: Vital Signs Temp 97.7 F 08/12/20 07:45 Pulse 90 08/12/20 11:52 Resp 20 08/12/20 11:00 BP 115/59 08/12/20 11:00 Pulse Ox 96 08/12/20 11:00 Intake & Output 08/11/20 08/12/20 08/12/20 18:59 06:59 18:59 Intake Total 50 240 Output Total 50 150 Balance -50 -100 240 Weight 110 kg Intake: Oral 50 240 Output: Urine 50 150 Other: Voiding Method Urinal Urinal Urinal - Labs CBC & Chem 7: 08/10/20 07:28 08/12/20 07:24 Labs: Abnormal Lab Results - Last 24 Hours (Table) 08/11/20 08/11/20 08/11/20 Range/Units 16:44 20:06 23:03 Sodium (137-145) mmol/L Chloride (98-107) mmol/L BUN (9-20) mg/dL Creatinine (0.66-1.25) mg/dL Glucose (74-99) mg/dL POC Glucose (mg/dL) 363 H 419 H 370 H (75-99) mg/dL 0608/12/20 08/12/20 Range/Units 06:02 07:02 07:24 Sodium 136 L (137-145) mmol/L Chloride 92 L (98-107) mmol/L BUN 111 H* (9-20) mg/dL Creatinine 8.31 H* (0.66-1.25) mg/dL Glucose 366 H (74-99) mg/dL POC Glucose (mg/dL) 337 H 353 H (75-99) mg/dL 08/12/20 Range/Units 11:55 Sodium (137-145) mmol/L Chloride (98-107) mmol/L BUN (9-20) mg/dL Creatinine (0.66-1.25) mg/dL Glucose (74-99) mg/dL POC Glucose (mg/dL) 443 H (75-99) mg/dL Microbiology - Last 24 Hours (Table) 08/11/20 08:40 Gram Stain - Preliminary Pleural Fluid Body Fluid Culture - Preliminary 08/11/20 08:40 Acid Fast Bacilli Smear - Final Pleural Fluid Acid Fast Bacilli Culture - Preliminary 08/11/20 08:40 Fungal Culture - Preliminary Pleural Fluid
--- NOTE | 2020-08-12 13:21 | PN ---
PROGRESS NOTE Patient is seen for followup for end-stage renal disease. He is currently maintained on peritoneal dialysis, receiving exchanges every 4 hours for volume overload. His BUN and creatinine have been significantly elevated, although slowly improving. This morning patient is much more comfortable. He is converted back to normal sinus rhythm. He is having an echocardiogram done. PHYSICAL EXAMINATION: Blood pressure was 115/59, heart rate 73 per minute. He is afebrile examination of the heart S1, S2. Examination of the lungs, bilateral breath sounds are heard. Abdomen is soft, nontender. Examination of lower extremities shows no significant edema. [employer] exam grossly intact. LAB: Show sodium 136, potassium 4.6, BUN 111, serum creatinine 8.3. Random Vanco level 30.9. ASSESSMENT: 1. End-stage renal disease, on peritoneal dialysis. Continue with current PD exchanges. 2. Volume overload significantly improved. 3. Atrial fibrillation with RVR, converted to normal sinus rhythm. 4. Pneumonia with loculated pleural effusion status post thoracentesis, maintained on antibiotics. PLAN: Continue current PD exchanges. Continue with the Aranesp. Encourage increased oral intake. Continue phosphate binders if the patient is eating. Continue with IV Lasix as well for now. MMODL / IJN: [id number] /
[2020-08-12 17:00] LABS: Glucose,Whole Blood 438 mg/dL (75-99)
--- NOTE | 2020-08-12 17:44 | ECHOF ---
Referral Reason:lv function MEASUREMENTS -------- HEIGHT: 182.9 cm WEIGHT: 109.8 kg BP: RVIDd: 3.0 cm (< 3.3) IVSd: 1.4 cm (0.6 - 1.1) LVIDd: 5.0 cm (3.9 - 5.3) LVPWd: 1.5 cm (0.6 - 1.1) IVSs: 1.7 cm LVIDs: 4.5 cm LVPWs: 1.1 cm LA Diam: 4.1 cm (2.7 - 3.8) Ao Diam: 3.4 cm (2.0 - 3.7) MV EXCURSION: 19.132 mm (> 18.000) MV EF SLOPE: 83 mm/s (70 - 150) EPSS: 1.0 cm MV E Rex: 0.42 m/s MV DecT: 145 ms MV A Rex: 0.62 m/s MV E/A Ratio: 0.67 RAP: 5.00 mmHg RVSP: 15.50 mmHg FINDINGS -------- Sinus rhythm. This was a techncally difficult study with suboptimal views, , Lumason utilized for enhancement of im ages. The left ventricular size is normal. There is mild concentric left ventricular hypertrophy. Overa ll left ventricular systolic function is moderately impaired with, an EF between 35 - 40 %. Anterse ptal Hypokinesis wih mild global hypokinesia. The right ventricle is normal in size. The left atrium is mildly dilated. The right atrial size is normal. 5.0mg OF Lumason UTLIZED: 2 OR MORE WALL SEGMENTS NOT VISUALIZED. There is mild aortic valve sclerosis. There is no evidence of aortic regurgitation. Mild mitral annular calcification present. Mild mitral regurgitation is present. Mild tricuspid regurgitation present. Right ventricular systolic pressure is normal at < 35 mmHg. The pulmonic valve was not well visualized. The aortic root size is normal. There is no pericardial effusion. CONCLUSIONS -------- 1. The left ventricular size is normal. 2. There is mild concentric left ventricular hypertrophy. 3. Overall left ventricular systolic function is moderately impaired with, an EF between 35 - 40 %. 4. Anterseptal Hypokinesis 5. The right ventricle is normal in size. 6. The left atrium is mildly dilated. 7. The right atrial size is normal. 8. 5.0mg OF Lumason UTLIZED: 2 OR MORE WALL SEGMENTS NOT VISUALIZED. 9. There is mild aortic valve sclerosis. 10. Mild mitral annular calcification present. 11. Mild mitral regurgitation is present. 12. Mild tricuspid regurgitation present. 13. The pulmonic valve was not well visualized. 14. The aortic root size is normal. 15. There is no pericardial effusion. REEFER TRUCK DRIVER: Karley Brown RDCS
--- NOTE | 2020-08-12 18:05 | P.PN ---
Subjective Progress Note Date: 08/12/20 Principal diagnosis: shortness of breath Patient is a 74-year-old man with end-stage renal disease on peritoneal dialysis, hypertension, and diabetes was transferred from [facility] to our facility secondary to healthcare associated pneumonia with loculated pleural effusion. Patient seen and examined at bedside. He reports that he feels much better than when arriving to the hospital. He states his breathing is getting better, his energy is returning. He denies any nausea, vomiting, or diarrhea. States his cough is getting better. General: non toxic, ill-appearing, appears older than stated age Derm: warm, dry Head: atraumatic, normocephalic, symmetric Eyes: EOMI, no lid lag, anicteric sclera Mouth: no lip lesion, mucus membranes moist Cardiovascular: S1S2 reg, no murmur, positive posterior tibial pulse bilateral, Lungs: Wheezing left side of his chest, no rhonchi, no rales , no accessory muscle use Abdominal: soft, nontender to palpation, no guarding, no appreciable organomegaly Ext: no gross muscle atrophy, no edema, no contractures Neuro: CN II-XI grossly intact, no focal neuro deficits Psych: Alert, oriented, appropriate affect Pneumonia, possible gram negatives with loculated pleural effusion status post thoracentesis on 08/11 -Continue with Zosyn -Pulmonary recommendations -Pulmonary hygiene -Repeat chest x-ray in a.m. -Continue with bronchodilators Diabetes mellitus type 2 with hyperglycemia -Increase Levemir and fixed dose insulin, continue with sliding scale -Follow blood sugars End-stage renal disease on PD -Nephrology recommendations -Currently undergoing PD Paroxysmal atrial fibrillation with rapid ventricular response -Was initially given amiodarone but converted to normal sinus rhythm -Cardiology recommendations -Follow telemetry -Await repeat echo Non-ST segment elevated myocardial infarction -Cardiology recommendations -Continue aspirin, Plavix, Lipitor, Lopressor Anemia of chronic disease Chronic conditions: Hypertension, dyslipidemia, hypothyroidism, COPD Objective - Vital Signs Vital signs: Vital Signs Temp 97.2 F L 08/12/20 15:30 Pulse 68 08/12/20 15:38 Resp 20 08/12/20 15:30 BP 133/62 08/12/20 15:30 Pulse Ox 99 08/12/20 15:30 Intake & Output 08/11/20 08/12/20 08/12/20 18:59 06:59 18:59 Intake Total 50 1460 Output Total 50 150 Balance -50 -100 1460 Weight 110 kg Intake: Oral 50 1460 Output: Urine 50 150 Other: Voiding Method Urinal Urinal Urinal - Labs CBC & Chem 7: 08/10/20 07:28 08/12/20 07:24 Labs: Abnormal Lab Results - Last 24 Hours (Table) 08/11/20 08/11/20 08/12/20 Range/Units 20:06 23:03 06:02 Sodium (137-145) mmol/L Chloride (98-107) mmol/L BUN (9-20) mg/dL Creatinine (0.66-1.25) mg/dL Glucose (74-99) mg/dL POC Glucose (mg/dL) 419 H 370 H 337 H (75-99) mg/dL 08/12/20 08/12/20 08/12/20 Range/Units 07:02 07:24 11:55 Sodium 136 L (137-145) mmol/L Chloride 92 L (98-107) mmol/L BUN 111 H* (9-20) mg/dL Creatinine 8.31 H* (0.66-1.25) mg/dL Glucose 366 H (74-99) mg/dL POC Glucose (mg/dL) 353 H 443 H (75-99) mg/dL 08/12/20 Range/Units 16:58 Sodium (137-145) mmol/L Chloride (98-107) mmol/L BUN (9-20) mg/dL Creatinine (0.66-1.25) mg/dL Glucose (74-99) mg/dL POC Glucose (mg/dL) 438 H (75-99) mg/dL Microbiology - Last 24 Hours (Table) 08/11/20 08:40 Gram Stain - Preliminary Pleural Fluid Body Fluid Culture - Preliminary 08/11/20 08:40 Acid Fast Bacilli Smear - Final Pleural Fluid Acid Fast Bacilli Culture - Preliminary 08/11/20 08:40 Fungal Culture - Preliminary Pleural Fluid
[2020-08-12] MEDS: ATORVASTATIN 80 MG TAB PO SCH (20:04)
[2020-08-12 20:30] LABS: Glucose,Whole Blood 453 mg/dL (75-99)
[2020-08-12] MEDS: INSULIN DETEMIR (LEVEMIR) 100 UNIT/ML SYR SQ SCH (21:01)
[2020-08-12 22:55] LABS: Glucose,Whole Blood 372 mg/dL (75-99)
[2020-08-12] MEDS ORDERED: INSULIN ASPART (NovoLOG) 100 UNIT/ML VIAL SQ ONE (23:05)
[2020-08-13 01:37] LABS: Glucose,Whole Blood 263 mg/dL (75-99)
[2020-08-13] MEDS: DIALYSIS (PERIT 4.25%) 2500 ML 106.25 G/2,500 ML BAG INTRAPERIT SCH ×6 (01:56→22:24)
[2020-08-13] MEDS: PIPERACILLIN-TAZOBACTAM 3.375 GM in SODIUM CHLORIDE 0.9% 100 ML IVPB SCH ×2 (02:52→17:10)
[2020-08-13] MEDS: PANTOPRAZOLE 40 MG TABLET PO SCH ×2 (06:30→17:09)
[2020-08-13] MEDS: SEVELAMER 800 MG TAB PO SCH ×3 (06:30→17:10)
[2020-08-13] MEDS: LEVOTHYROXINE 25 MCG TAB PO SCH (06:30)
[2020-08-13] MEDS: FUROSEMIDE 10 MG/ML 10 ML VIAL IV SCH ×2 (06:30→17:11)
[2020-08-13 07:14] LABS: Glucose,Whole Blood 298 mg/dL (75-99)
[2020-08-13] MEDS: FORMOTEROL FUMARATE 20 MCG/2 ML NEBU INHALATION SCH ×2 (07:26→21:39)
[2020-08-13] MEDS: IPRATROPIUM-ALBUTEROL 3 ML NEB INHALATION SCH ×4 (07:26→21:39)
[2020-08-13] MEDS: BUDESONIDE 1 MG/2 ML NEBU INHALATION SCH ×2 (07:26→21:39)
[2020-08-13 07:32] LABS: HGB 9.1 gm/dL (13.0-17.5); MCH 33.8 pg (25.0-35.0); MCHC 33.5 g/dL (31.0-37.0); MCV 100.7 fL (80.0-100.0); Macrocytosis Slight; Mean Platelet Volume 7.9; Platelet Count 303 k/uL (150-450); RBC 2.68 m/uL (4.30-5.90); RDW 13.5 % (11.5-15.5); WBC 26.5 k/uL (3.8-10.6)
[2020-08-13 07:37] LABS: Calcium 8.4 mg/dL (8.4-10.2); Potassium 4.4 mmol/L (3.5-5.1)
--- NOTE | 2020-08-13 08:35 | XR ---
EXAMINATION TYPE: XR chest 1V portable DATE OF EXAM: 08/13/2020 COMPARISON: 08/11/2020 HISTORY: History of pneumonia TECHNIQUE: Single frontal view of the chest is obtained. FINDINGS: Low lung volumes. Overlying leads. Heart size is enlarged. Small pleural effusions. Bibasi lar airspace opacities have slightly decreased since prior exam suggestive of atelectasis or resolvin g pneumonia. No pneumothorax. IMPRESSION: 1. Bibasilar airspace opacities have decreased since prior exam suggestive of atelectasis or resolvin g pneumonia. Small bilateral pleural effusions.
[2020-08-13] MEDS: INSULIN ASPART (NovoLOG) 100 UNIT/ML VIAL SQ SCH ×7 (09:34→21:17)
[2020-08-13] MEDS: INSULIN DETEMIR (LEVEMIR) 100 UNIT/ML SYR SQ SCH ×2 (09:35→21:16)
[2020-08-13] MEDS: HEPARIN SODIUM,PORCINE/PF 5,000 UNIT/0.5 ML SYRINGE SQ SCH ×3 (09:35→23:02)
[2020-08-13] MEDS: methylPREDNISolone SOD SUCCI 40 MG/ML 1 ML VIAL IV SCH (09:36)
[2020-08-13] MEDS: CLOPIDOGREL 75 MG TAB PO SCH (09:38)
[2020-08-13] MEDS: ASPIRIN 81 MG PO SCH (09:38)
[2020-08-13] MEDS: DOCUSATE 100 MG CAP PO SCH (09:38)
[2020-08-13] MEDS: FAMOTIDINE 20 MG TAB PO SCH (09:38)
[2020-08-13] MEDS: ISOSORBIDE DINITRATE 20 MG TAB PO SCH ×2 (09:39→21:15)
[2020-08-13] MEDS: METOPROLOL TARTRATE 12.5 MG TAB PO SCH (09:44)
--- NOTE | 2020-08-13 11:30 | PN ---
PROGRESS NOTE Patient is seen for followup for end-stage renal disease. He is currently maintained on peritoneal dialysis. Volume status has improved and BUN and creatinine are also slowly improving. Patient is maintained on q.4 hours exchanges. PHYSICAL EXAMINATION: On examination today, he is comfortable. Blood pressure 144/71, heart rate 85 per minute. He is afebrile. Examination of the heart S1 and S2. Examination of the lungs bilateral breath sounds are heard. Abdomen is soft and nontender. Examination of the lower extremities shows no significant edema. DRY CURER exam grossly intact. LABS: Show sodium 136, potassium 4.4, BUN 102, serum creatinine 8.38, hemoglobin 9.1 g/dL. ASSESSMENT: 1. End-stage renal disease maintained on peritoneal dialysis and continue with current PD exchanges. No need for hemodialysis yet. 2. Volume overload currently improved. 3. Atrial fibrillation with rapid ventricular response, now in sinus rhythm. 4. Pneumonia with loculated pleural effusions status post thoracentesis. 5. Coronary artery disease. 6. Cardiomyopathy, ejection fraction 35-40%. PLAN: Continue current PD exchanges. Continue with IV Lasix as well for now. MMODL / IJN: [id number] /
[2020-08-13 12:08] LABS: Glucose,Whole Blood 286 mg/dL (75-99)
--- NOTE | 2020-08-13 15:32 | P.PN ---
Subjective Progress Note Date: 08/13/20 Principal diagnosis: Shortness of breath, right-sided pleural effusion 74-year-old male, transferred over to the hospital, from [facility] per family request. The patient was initially taken to [facility], and then transferred to [facility] on August 02. He apparently been feeling poorly for a couple days or so or maybe a bit longer, prior to admission, with complaints of difficulty breathing, fever, and right-sided chest pain. The patient was initially seen at [facility], and transferred down to [facility]. Yesterday, was notified by one of his daughters who is a nurse, that the family wanted the patient transferred down to [facility]. The patient was transferred yesterday. According to one of the daughters, the patient was needing to have a thoracentesis. Apparently there was a date from pulmonary services and interventional radiology, in terms of who should do the thoracentesis. Anyway, it was apparently frustrating to the family and the patient was transferred he re. The patient is to have a thoracentesis performed by interventional radiology here today. White count 20.6, hemoglobin 8.6, hematocrit 26.3, and platelet count 251,000. PT INR are normal. Sodium 136, potassium 4.9, chlorides 92, CO2 25, anion gap 19, BUN 119, and creatinine 8.58. Chest x-ray and ultrasound of the right chest are reviewed. In addition, we added some Solu-Medrol, DC his Symbicort in favor of Pulmicort and formoterol, and added stronger antibiotics including Zosyn and vancomycin. Progress note dated 08/11/2020. 74-year-old male transferred from [facility]. The patient underwent a right-sided thoracentesis today by myself. 400 mL of bloody fluid was removed from the right pleural space. The follow-up chest x-ray looks much better. There is no obvious pneumothorax. Currently, the patient's on a couple liters of nasal O2. He apparently did develop spontaneous atrial fibrillation with RVR this morning. He was placed on amiodarone drip. Cardiology is going to see the patient but apparently did not want IV heparin at this time. The patient's currently on Zosyn and vancomycin. He was seen yesterday in consultation. Sodium 136, potassium 4.8, chlorides 94, CO2 21, anion gap 21, BUN 116, and creatinine 8.14. The patient is seen today 08/12/2020 in follow-up on the selective care unit. He is currently sitting up at the bedside. Awake and alert in no acute distress. Maintaining O2 saturations in the 90s on room air. Afebrile. Hemodynamically stable. CAT scan had revealed bilateral pleural effusions right greater than left some of which appeared loculated. He did undergo a thoracentesis on the right with 400 mL returned. Fluid analysis positive for exudate. Pathology pending. Cultures pending. He remains on DuoNeb inhalations, Pulmicort and Perforomist inhalations, IV Solu-Medrol. Currently on antibiotics in the form of Zosyn and vancomycin. The patient is seen today 08/13/2020 in follow-up on the selective care unit. Currently sitting up in a chair. Awake and alert in no acute distress. Denies any worsening shortness of breath, cough or congestion. No fever, chills or night sweats. 18 O2 saturations in the 90s on room air. He's been afebrile. Hemodynamically stable. Follow-up chest x-ray reveals improved bibasilar airspace disease. Pleural fluid cultures are revealing no growth thus far. Pa thology pending. White count 26.5. Hemoglobin 9.1. MCV 100.7. Sodium 136. Potassium 4.4. BUN 102. Creatinine 8.38. Remains on bronchodilators, IV diuretics, IV Solu-Medrol, Zosyn. Objective - Vital Signs Vital signs: Vital Signs Temp 97.5 F L 08/13/20 08:00 Pulse 79 08/13/20 14:00 Resp 19 08/13/20 14:00 BP 144/71 08/13/20 08:00 Pulse Ox 93 L 08/13/20 08:00 Intake & Output 08/12/20 08/13/20 08/13/20 18:59 06:59 18:59 Intake Total 1460 222 Output Total 400 Balance 1460 -178 Weight 100.3 kg Intake: Oral 1460 222 Output: Urine 400 Other: Voiding Method Urinal Urinal Urinal # Voids 0 - Exam GENERAL EXAM: Alert, pleasant 74-year-old gentleman, on room air, comfortable in no apparent distress. HEAD: Normocephalic. EYES: Normal reaction of pupils, equal size. NOSE: Clear with pink turbinates. THROAT: No erythema or exudates. NECK: No masses, no JVD. CHEST: No chest wall deformity. LUNGS: Equal air entry with basilar crackles. CVS: S1 and S2 normal with no audible murmur, regular rhythm. ABDOMEN: No hepatosplenomegaly, normal bowel sounds, no guarding or rigidity. SPINE: No scoliosis or deformity SKIN: No rashes CENTRAL NERVOUS SYSTEM: No focal deficits, tone is normal in all 4 extremities. EXTREMITIES: There is no peripheral edema. No clubbing, no cyanosis. Peripheral pulses are intact. - Labs CBC & Chem 7: 08/13/20 06:51 08/13/20 06:51 Labs: Abnormal Lab Results - Last 24 Hours (Table) 08/12/20 08/12/20 08/12/20 Range/Units 16:58 20:24 22:53 WBC (3.8-10.6) k/uL RBC (4.30-5.90) m/uL Hgb (13.0-17.5) gm/dL Hct (39.0-53.0) % MCV (80.0-100.0) fL Sodium (137-145) mmol/L Chloride (98-107) mmol/L BUN (9-20) mg/dL Creatinine (0.66-1.25) mg/dL Glucose (74-99) mg/dL POC Glucose (mg/dL) 438 H 453 H 372 H (75-99) mg/dL 08/13/20 08/13/20 08/13/20 Range/Units 01:35 06:51 06:51 WBC 26.5 H (3.8-10.6) k/uL RBC 2.68 L (4.30-5.90) m/uL Hgb 9.1 L (13.0-17.5) gm/dL Hct 27.0 L (39.0-53.0) % MCV 100.7 H (80.0-100.0) fL Sodium 136 L (137-145) mmol/L Chloride 92 L (98-107) mmol/L BUN 102 H* (9-20) mg/dL Creatinine 8.38 H* (0.66-1.25) mg/dL Glucose 252 H (74-99) mg/dL POC Glucose (mg/dL) 263 H (75-99) mg/dL 08/13/20 08/13/20 Range/Units 07:12 12:07 WBC (3.8-10.6) k/uL RBC (4.30-5.90) m/uL Hgb (13.0-17.5) gm/dL Hct (39.0-53.0) % MCV (80.0-100.0) fL Sodium (137-145) mmol/L Chloride (98-107) mmol/L BUN (9-20) mg/dL Creatinine (0.66-1.25) mg/dL Glucose (74-99) mg/dL POC Glucose (mg/dL) 298 H 286 H (75-99) mg/dL Microbiology - Last 24 Hours (Table) 08/11/20 08:40 Gram Stain - Preliminary Pleural Fluid Body Fluid Culture - Preliminary Assessment and Plan Assessment: 1 Right basilar pneumonia with right parapneumonic effusion, rule out empyema, follow-up chest x-ray showing improvement 2 New-onset atrial fibrillation with rapid ventricular response 3 Bilateral pleural effusions right greater than left, status post right-sided thoracentesis on 08/11/2020 cultures and pathology pending 4 Possible non-ST segment elevation myocardial infarctions 5 History of end-stage renal disease, currently on peritoneal dialysis 6 Diabetes mellitus 7 Hypertension 8 Hyperlipidemia 9 History of coronary disease 10 Hypothyroidism 11 Chronic obstructive pulmonary disease 12 Previous heavy tobacco dependence 13 Anemia of chronic disease Plan: The patient was seen and evaluated by Dr. Alfaro Cleared for discharge from the pulmonary standpoint Cultures pending, pathology pending Complete a course of antibiotics Complete a prednisone taper Follow-up in the office in 1 week I, the cosigning physician, performed a history & physical examination of the patient. Lungs sounds with crackles in the posterior bases. Maintaining good O2 saturations in the 90s on room air. I discussed the assessment and plan of care with my nurse practitioner, Evie Dumont. I attest to the above note as dictated by her.
[2020-08-13 17:03] LABS: Glucose,Whole Blood 311 mg/dL (75-99)
--- NOTE | 2020-08-13 18:59 | P.PN ---
Subjective Progress Note Date: 08/13/20 Principal diagnosis: shortness of breath Patient is a 74-year-old man with end-stage renal disease on peritoneal dialysis, hypertension, and diabetes was transferred from [facility] to our facility secondary to healthcare associated pneumonia with loculated pleural effusion. Repeat echo with EF 35-40% and a few days prior at [place] was 55-60% and they were considering heart cath. Patient seen and examined at bedside. He is feeling better and getting stronger. Breathing is much better, no nausea, no vomiting, no diarrhea, no chest pain. General: non toxic, ill-appearing, appears older than stated age Derm: warm, dry Head: atraumatic, normocephalic, symmetric Eyes: EOMI, no lid lag, anicteric sclera Mouth: no lip lesion, mucus membranes moist Cardiovascular: S1S2 reg, no murmur, positive posterior tibial pulse bilateral, Lungs: ronchi bilateral , no accessory muscle use Abdominal: soft, nontender to palpation, no guarding, no appreciable organomegaly Ext: no gross muscle atrophy, no edema, no contractures Neuro: CN II-XI grossly intact, no focal neuro deficits Psych: Alert, oriented, appropriate affect Newly discovered systolic cardiomyopathy, recent fluid overload still on IV lasix. - EF 35-40% - cardio to re-eval - continue with lopressor and lasix - start ACEI if okay with nephrology Pneumonia, possible gram negatives with loculated pleural effusion status post thoracentesis on 08/11 -Continue with Zosyn -Pulmonary recommendations: cleared for discharge -Pulmonary hygiene -Continue with bronchodilators Diabetes mellitus type 2 with hyperglycemia - Levemir and fixed dose insulin, continue with sliding scale -Follow blood sugars End-stage renal disease on PD -Nephrology recommendations -Currently undergoing PD Paroxysmal atrial fibrillation with rapid ventricular response -Was initially given amiodarone but converted to normal sinus rhythm -Follow telemetry Non-ST segment elevated myocardial infarction -Cardiology recommendations -Continue aspirin, Plavix, Lipitor, Lopressor Anemia of chronic disease Chronic conditions: Hypertension, dyslipidemia, hypothyroidism, COPD Objective - Vital Signs Vital signs: Vital Signs Temp 98.4 F 08/13/20 16:00 Pulse 83 08/13/20 16:00 Resp 18 08/13/20 16:00 BP 123/58 08/13/20 16:00 Pulse Ox 94 L 08/13/20 16:00 Intake & Output 08/12/20 08/13/20 08/13/20 18:59 06:59 18:59 Intake Total 1460 222 240 Output Total 400 Balance 1460 -178 240 Weight 100.3 kg Intake: Oral 1460 222 240 Output: Urine 400 Other: Voiding Method Urinal Urinal Urinal # Voids 0 - Labs CBC & Chem 7: 08/13/20 06:51 08/13/20 06:51 Labs: Abnormal Lab Results - Last 24 Hours (Table) 08/12/20 08/12/20 08/13/20 Range/Units 20:24 22:53 01:35 WBC (3.8-10.6) k/uL RBC (4.30-5.90) m/uL Hgb (13.0-17.5) gm/dL Hct (39.0-53.0) % MCV (80.0-100.0) fL Sodium (137-145) mmol/L Chloride (98-107) mmol/L BUN (9-20) mg/dL Creatinine (0.66-1.25) mg/dL Glucose (74-99) mg/dL POC Glucose (mg/dL) 453 H 372 H 263 H (75-99) mg/dL 08/13/20 08/13/20 08/13/20 Range/Units 06:51 06:51 07:12 WBC 26.5 H (3.8-10.6) k/uL RBC 2.68 L (4.30-5.90) m/uL Hgb 9.1 L (13.0-17.5) gm/dL Hct 27.0 L (39.0-53.0) % MCV 100.7 H (80.0-100.0) fL Sodium 136 L (137-145) mmol/L Chloride 92 L (98-107) mmol/L BUN 102 H* (9-20) mg/dL Creatinine 8.38 H* (0.66-1.25) mg/dL Glucose 252 H (74-99) mg/dL POC Glucose (mg/dL) 298 H (75-99) mg/dL 08/13/20 08/13/20 Range/Units 12:07 17:02 WBC (3.8-10.6) k/uL RBC (4.30-5.90) m/uL Hgb (13.0-17.5) gm/dL Hct (39.0-53.0) % MCV (80.0-100.0) fL Sodium (137-145) mmol/L Chloride (98-107) mmol/L BUN (9-20) mg/dL Creatinine (0.66-1.25) mg/dL Glucose (74-99) mg/dL POC Glucose (mg/dL) 286 H 311 H (75-99) mg/dL Microbiology - Last 24 Hours (Table) 08/11/20 08:40 Gram Stain - Preliminary Pleural Fluid Body Fluid Culture - Preliminary
[2020-08-13 21:00] LABS: Glucose,Whole Blood 355 mg/dL (75-99)
[2020-08-13] MEDS: ATORVASTATIN 80 MG TAB PO SCH (21:15)
[2020-08-14] MEDS: DIALYSIS (PERIT 4.25%) 2500 ML 106.25 G/2,500 ML BAG INTRAPERIT SCH ×4 (01:53→21:46)
[2020-08-14] MEDS: PIPERACILLIN-TAZOBACTAM 3.375 GM in SODIUM CHLORIDE 0.9% 100 ML IVPB SCH ×2 (02:41→15:49)
[2020-08-14] MEDS: LEVOTHYROXINE 25 MCG TAB PO SCH (06:24)
[2020-08-14] MEDS: FUROSEMIDE 10 MG/ML 10 ML VIAL IV SCH ×2 (06:24→18:09)
[2020-08-14] MEDS: PANTOPRAZOLE 40 MG TABLET PO SCH ×2 (06:24→17:09)
[2020-08-14] MEDS: SEVELAMER 800 MG TAB PO SCH ×3 (06:25→17:09)
[2020-08-14 06:51] LABS: Glucose,Whole Blood 296 mg/dL (75-99)
[2020-08-14] MEDS: INSULIN ASPART (NovoLOG) 100 UNIT/ML VIAL SQ SCH ×7 (07:10→20:22)
[2020-08-14] MEDS: BUDESONIDE 1 MG/2 ML NEBU INHALATION SCH (07:33)
[2020-08-14] MEDS: FORMOTEROL FUMARATE 20 MCG/2 ML NEBU INHALATION SCH (07:33)
[2020-08-14] MEDS: IPRATROPIUM-ALBUTEROL 3 ML NEB INHALATION SCH ×4 (07:33→20:33)
[2020-08-14 08:29] LABS: HCT 28.9 % (39.0-53.0); HGB 9.7 gm/dL (13.0-17.5); MCH 34.4 pg (25.0-35.0); MCHC 33.6 g/dL (31.0-37.0); MCV 102.6 fL (80.0-100.0); Macrocytosis Slight; Mean Platelet Volume 8.3; Platelet Count 316 k/uL (150-450); RBC 2.82 m/uL (4.30-5.90); WBC 23.4 k/uL (3.8-10.6)
[2020-08-14] MEDS: INSULIN DETEMIR (LEVEMIR) 100 UNIT/ML SYR SQ SCH ×2 (09:31→20:22)
[2020-08-14] MEDS: HEPARIN SODIUM,PORCINE/PF 5,000 UNIT/0.5 ML SYRINGE SQ SCH ×3 (09:32→22:57)
[2020-08-14] MEDS: FAMOTIDINE 20 MG TAB PO SCH (09:33)
[2020-08-14] MEDS: CLOPIDOGREL 75 MG TAB PO SCH (09:33)
[2020-08-14] MEDS: METOPROLOL TARTRATE 12.5 MG TAB PO SCH (09:33)
[2020-08-14] MEDS: predniSONE 20 MG TAB PO SCH (09:33)
[2020-08-14] MEDS: ISOSORBIDE DINITRATE 20 MG TAB PO SCH ×2 (09:33→19:47)
[2020-08-14] MEDS: ASPIRIN 81 MG PO SCH (09:33)
[2020-08-14] MEDS: DOCUSATE 100 MG CAP PO SCH (09:33)
[2020-08-14] MEDS: DIALYSIS (PERIT 2.5%) 2,500 ML 62.5 G/2,500 ML BAG INTRAPERIT SCH ×2 (10:18→18:04)
[2020-08-14] MEDS: METOPROLOL SUCCINATE (ER) 25 MG TAB.ER.24H PO SCH (11:25)
--- NOTE | 2020-08-14 11:29 | PN ---
PROGRESS NOTE Patient is seen for followup for end-stage renal disease, currently maintained on peritoneal dialysis. The patient is receiving q.4 hours exchanges secondary to volume overload and significantly elevated BUN and creatinine which is slowly improving. Volume status has significantly improved. The patient has had about 400-500 cc of ultrafiltration with every exchange. PHYSICAL EXAMINATION: On examination today, he is comfortable. Blood pressure was 132/70, heart rate 80 per minute, he is afebrile. Examination of the heart S1, S2. Examination of lungs, decreased breath sounds at bases. Abdomen is soft, nontender. Examination of lower extremities shows no evidence of edema. [employer] exam grossly intact. LABS: Labs are pending from today. ASSESSMENT: 1. End-stage renal disease, on peritoneal dialysis. Continue the PD exchanges q.4 hours but change to alternating with 2.5% solution as volume status has improved. 2. Pneumonia with pleural effusion status post thoracentesis. 3. Acute hypoxic respiratory failure secondary to fluid overload, pleural effusion, pneumonia, currently improved. 4. Chronic kidney disease, mineral bone disorder. 5. Anemia of chronic disease, maintained on Aranesp. PLAN: Change the PD exchanges to 2.5% solution alternating with 4.25% solutions. Continue with the antibiotics. Continue with phosphate binders. The patient will likely need rehab. MMODL / IJN: [id number] /
[2020-08-14 11:50] LABS: Glucose,Whole Blood 189 mg/dL (75-99)
--- NOTE | 2020-08-14 11:58 | P.PN ---
Subjective HISTORY OF PRESENTING ILLNESS This is a pleasant 74-year-old male past medical history significant for end-stage renal disease on peritoneal dialysis, hypertension, dyslipidemia, COPD, diabetes mellitus, peripheral vascular disease status post right carotid endarterectomy and femoral bypass, former nicotine dependence and recent non-ST elevated myocardial infarction that was treated medically at [place]. He follows in the office with a buildings painter at [place]. We have been asked to see in consultation for elevated troponin. He presented to the hospital with worsening shortness of breath. He was transferred from [place] where he was being treated for NSTEMI, pneumonia and heart failure. He did not get a [facility] due to inability to lay flat to tolerate the procedure. Initial presentation there is EKG revealed ST depression in the lateral leads with troponin peak at 6. His medical regimen was optimized with Plavix and statins. Chest x-ray and ultrasound obtained here on admission revealed a right pleural effusion pocket size of 5.4 cm. He had been being actively diuresed over the previous 2 weeks however he was not having significant urine output according to the daughter who is a nurse. Prior to admission for that he was averaging 2 L of urine output per day despite being on dialysis. This morning he is seen and examined in significant respiratory distress. He went into a brief transient episode of atrial fibrillation with rapid ventricular rate and was complaining of chest tightness. EKG was unable to be obtained due to his respiratory status. Pulmonary was called and they came to the bedside and performed a thoracentesis. 400 mL's of fluid was removed. Chest x-ray obtained thereafter revealed pulmo nary vascular prominence stable from previous exam, patchy airspace opacity at the right lung base and tiny bilateral pleural effusions with no evidence of pneumothorax status post thoracentesis. Shortly after undergoing thoracentesis he converted back to sinus mechanism. Laboratory data reviewed, sodium 136, potassium 4.8, creatinine 8.14, WBC 20.6, hemoglobin 8.6, platelets 251, magnesium 2.7. Limited echocardiogram obtained at [facility] reveals ejection fraction 55% with evidence of inferior lateral wall motion hypokinesia with no significant MR or TR. 08/14/2020 Seen and examined laying in bed in no acute distress. No chest pain, breathing stable. Echo findings reveal impaired LV function. When comparing the echo from [place] to here it is unclear if the [place] echo was interpreted accurately. They gave an EF of 55% with wall motion abnormalities. This does not make sense. PHYSICAL EXAMINATION CONSTITUTIONAL: Mild respiratory distress, improved after thoracentesis. HEENT: Head is normocephalic. Pupils are equal, round. Sclerae anicteric. Mucous membranes of the mouth are moist. No JVD. No carotid bruit. CHEST EXAMINATION: Clear to auscultation. No wheezes, rhonchi or rales. No chest wall tenderness is noted on palpation or with deep breathing. HEART EXAMINATION: Regular rate and rhythm. S1, S2 heard. No murmurs, gallops or rub. EXTREMITIES: 2+ peripheral pulses, no lower extremity edema and no calf tenderness. ASSESSMENT Brief episode of atrial fibrillation with rapid ventricular response Pneumonia Pleural effusion End-stage renal disease on peritoneal dialysis Diabetes mellitus Hypertension Dyslipidemia Peripheral vascular disease Recent non-ST elevated myocardial infarction PLAN Echo report reviewed with patient, and daughter. No further episodes of atrial fibrillation. Ongoing treatment of pneumonia. No plans for cath at this time. Recommend follow up with his primary buildings painter for cath with her when infection has resolved. Nurse Practitioner note has been reviewed, I agree with a documented findings and plan of care. Patient was seen and examined. Objective - Vital Signs Vital signs: Vital Signs Temp 97.7 F 08/14/20 03:45 Pulse 89 08/14/20 07:59 Resp 20 08/14/20 05:50 BP 132/70 08/14/20 05:50 Pulse Ox 95 08/14/20 05:50 Intake & Output 08/13/20 08/14/20 08/14/20 18:59 06:59 18:59 Intake Total 240 240 Output Total 0 Balance 240 240 Weight 98.4 kg Intake: Oral 240 240 Output: Urine 0 Other: Voiding Method Urinal Urinal # Voids 0 1 # Bowel Movements 1 - Labs CBC & Chem 7: 08/14/20 07:40 08/13/20 06:51 Labs: Abnormal Lab Results - Last 24 Hours (Table) 08/13/20 08/13/20 08/13/20 Range/Units 12:07 17:02 20:58 WBC (3.8-10.6) k/uL RBC (4.30-5.90) m/uL Hgb (13.0-17.5) gm/dL Hct (39.0-53.0) % MCV (80.0-100.0) fL POC Glucose (mg/dL) 286 H 311 H 355 H (75-99) mg/dL 08/14/20 08/14/20 Range/Units 06:50 07:40 WBC 23.4 H (3.8-10.6) k/uL RBC 2.82 L (4.30-5.90) m/uL Hgb 9.7 L (13.0-17.5) gm/dL Hct 28.9 L (39.0-53.0) % MCV 102.6 H (80.0-100.0) fL POC Glucose (mg/dL) 296 H (75-99) mg/dL Microbiology - Last 24 Hours (Table) 08/11/20 08:40 Gram Stain - Preliminary Pleural Fluid Body Fluid Culture - Preliminary
[2020-08-14 13:30] VITALS: BMI 29.4
--- NOTE | 2020-08-14 15:52 | P.PN ---
Subjective Progress Note Date: 08/14/20 Principal diagnosis: Shortness of breath, right-sided pleural effusion. Pulmonary consult dated 08/10/2020. 74-year-old male, transferred over to the hospital, from [facility] per family request. The patient was initially taken to [facility], and then transferred to [facility] on August 02. He apparently been feeling poorly for a couple days or so or maybe a bit longer, prior to admission, with complaints of difficulty breathing, fever, and right-sided chest pain. The patient was initially seen at [facility], and epstein sferred down to [facility]. Yesterday, was notified by one of his daughters who is a nurse, that the family wanted the patient transferred down to [facility]. The patient was transferred yesterday. According to one of the daughters, the patient was needing to have a thoracentesis. Apparently there was a date from pulmonary services and interventional radiology, in terms of who should do the thoracentesis. Anyway, it was apparently frustrating to the family and the patient was transferred here. The patient is to have a thoracentesis performed by interventional radiology here today. White count 20.6, hemoglobin 8.6, hematocrit 26.3, and platelet count 251,000. PT INR are normal. Sodium 136, potassium 4.9, chlorides 92, CO2 25, anion gap 19, BUN 119, and creatinine 8.58. Chest x-ray and ultrasound of the right chest are reviewed. In addition, we added some Solu-Medrol, DC his Symbicort in favor of Pulmicort and formoterol, and added stronger antibiotics including Zosyn and vancomycin. Progress note dated 08/11/2020. 74-year-old male transferred from [facility]. The patient underwent a right-sided thoracentesis today by myself. 400 mL of bloody fluid was removed from the right pleural space. The follow-up chest x-ray looks much better. There is no obvious pneumothorax. Currently, the patient's on a couple liters of nasal O2. He apparently did develop spontaneous atrial fibrillation with RVR this morning. He was placed on amiodarone drip. Cardiology is going to see the patient but apparently did not want IV heparin at this time. The patient's currently on Zosyn and vancomycin. He was seen yesterday in consultation. Sodium 136, potassium 4.8, chlorides 94, CO2 21, anion gap 21, BUN 116, and creatinine 8.14. The patient is seen today 08/12/2020 in follow-up on the selective care unit. He is currently sitting up at the bedside. Awake and alert in no acute distress. Maintaining O2 saturations in the 90s on room air. Afebrile. Hemodynamically stable. CAT scan had revealed bilateral pleural effusions right greater than left some of which appeared loculated. He did undergo a thoracente sis on the right with 400 mL returned. Fluid analysis positive for exudate. Pathology pending. Cultures pending. He remains on DuoNeb inhalations, Pulmicort and Perforomist inhalations, IV Solu-Medrol. Currently on antibiotics in the form of Zosyn and vancomycin. The patient is seen today 08/13/2020 in follow-up on the selective care unit. Currently sitting up in a chair. Awake and alert in no acute distress. Denies any worsening shortness of breath, cough or congestion. No fever, chills or night sweats. 18 O2 saturations in the 90s on room air. He's been afebrile. Hemodynamically stable. Follow-up chest x-ray reveals improved bibasilar airspace disease. Pleural fluid cultures are revealing no growth thus far. Pathology pending. White count 26.5. Hemoglobin 9.1. MCV 100.7. Sodium 136. Potassium 4.4. BUN 102. Creatinine 8.38. Remains on bronchodilators, IV diuretics, IV Solu-Medrol, Zosyn. Progress note dated 08/14/2020. Currently, the patient's doing well. Room air saturation is 94%. Temperature normal. Heart rate 74, respiratory rate 19, blood pressure 106/64. Laboratory data includes a white count of 23.4, hemoglobin 9.7, hematocrit 28.9, and platelet count of 316,000. Microbiologic sampling is normal. Currently, the patient's doing well. He states that his breathing is much improved. He still is weak. May need some in-house rehab. Objective - Vital Signs Vital signs: Vital Signs Temp 98.6 F 08/14/20 15:29 Pulse 74 08/14/20 15:29 Resp 19 08/14/20 15:29 BP 90/49 08/14/20 15:29 Pulse Ox 94 L 08/14/20 15:29 Intake & Output 08/13/20 08/14/20 08/14/20 18:59 06:59 18:59 Intake Total 240 240 240 Output Total 0 Balance 240 240 240 Weight 98.4 kg 98.4 kg Intake: Oral 240 240 240 Output: Urine 0 Other: Voiding Method Urinal Urinal # Voids 0 1 1 # Bowel Movements 1 1 - Exam No respiratory distress, oriented 3. Patient has improved breathing post thoracentesis. Currently on room air. HEENT examination is grossly unremarkable. Neck supple. Full range of motion. No adenopathy thyromegaly or neck vein distention. Cardiovascular examination reveals regular rhythm rate. S1-S2 normal. No S3 or S4. No discernible murmur noted. Heart sounds are distant. Heart rate 82 bpm. Lungs reveal mild scattered rhonchi at the right base. No wheezes or crackles. Breath sounds otherwise normal. Abdomen soft bowel sounds are heard. No masses or tenderness. Extremities are intact. No cyanosis clubbing or edema. Skin is without rash or lesion. Neurologic examination is brief but nonfocal. - Labs CBC & Chem 7: 08/14/20 07:40 08/13/20 06:51 Labs: Abnormal Lab Results - Last 24 Hours (Table) 08/13/20 08/13/20 08/14/20 Range/Units 17:02 20:58 06:50 WBC (3.8-10.6) k/uL RBC (4.30-5.90) m/uL Hgb (13.0-17.5) gm/dL Hct (39.0-53.0) % MCV (80.0-100.0) fL POC Glucose (mg/dL) 311 H 355 H 296 H (75-99) mg/dL 08/14/20 08/14/20 Range/Units 07:40 11:48 WBC 23.4 H (3.8-10.6) k/uL RBC 2.82 L (4.30-5.90) m/uL Hgb 9.7 L (13.0-17.5) gm/dL Hct 28.9 L (39.0-53.0) % MCV 102.6 H (80.0-100.0) fL POC Glucose (mg/dL) 189 H (75-99) mg/dL Microbiology - Last 24 Hours (Table) 08/11/20 08:40 Gram Stain - Preliminary Pleural Fluid Body Fluid Culture - Preliminary Assessment and Plan Assessment: Right basilar pneumonia with a right parapneumonic effusion, rule out empyema. New onset fibrillation with RVR, currently on amiodarone. Status post right-sided thoracentesis, with 400 mL of bloody fluid removed and sent to laboratory for analysis. Possible NSTEMI. History of end-stage renal disease, currently on peritoneal dialysis. History of diabetes mellitus. History of hyperlipidemia. History of hypertension. History of coronary artery disease. History of hypothyroidism. History of COPD from previous heavy tobacco use. Anemia of chronic disease. Plan: Plan dated 08/10/2020. The patient's updrafts were changed to him. Also think and ipratropium bromide, 4 times a day and when necessary. In addition, we discontinued Symbicort, and fever up Pulmicort 1 mg, mixed with formoterol, 20 g, twice a day. In addition, we discontinued prednisone in favor of Solu-Medrol. Finally, we stopped the ceftriaxone and started the patient on Zosyn and vancomycin. The patient is to have a thoracentesis performed by interventional radiology today. We'll send it for chemistry including LDH, protein, glucose, cytology, and microbiology. Additional recommendations and suggestions are forthcoming. Prognosis is guarded. Plan dated 08/11/2020. Currently, the patient appears to be a bit better following the thoracentesis. His atrial fibrillation spontaneously O went back into normal sinus rhythm. He was placed on amiodarone by IV infusion. Cardiology did not want IV heparin at this time. The fluid analysis will be done and hopefully help us determine what's going on in his right chest area. 400 mL of bloody fluid was withdrawn during the right thoracentesis. The patient tolerated procedure well. There is no postprocedure pneumothorax. The patient continues on antibiotics. Prognosis is guarded. He is currently on 3 L. Saturations are 92-93%. Plan dated 08/14/2020. Currently, the patient looks much improved. His been weaned down to room air. The patient is not receiving any IV fluids. His vital signs are otherwise stable. Currently, all microbiology is negative. The patient remains on Zosyn, prednisone, albuterol sulfate, ipratropium bromide, Pulmicort, and formoterol. Additional recommendations and suggestions are forthcoming. The patient is not quite ready for discharge. We will continue to follow make recommendations where appropriate. Time with Patient: Less than 30
[2020-08-14 16:46] LABS: Glucose,Whole Blood 255 mg/dL (75-99)
--- NOTE | 2020-08-14 17:50 | P.PN ---
Subjective Progress Note Date: 08/14/20 (delayed charting seen at bedside) Principal diagnosis: shortness of breath Patient is a 74-year-old man with end-stage renal disease on peritoneal dialysis, hypertension, and diabetes was transferred from [facility] to our facility secondary to healthcare associated pneumonia with loculated pleural effusion. Repeat echo with EF 35-40% and a few days prior at [place] was 55-60% and they were considering heart cath. Patient seen and examined at bedside. His breathing is better, feeling better everyday but having some cramping. No nausea, no vomiting. General: non toxic, ill-appearing, appears older than stated age Derm: warm, dry Head: atraumatic, normocephalic, symmetric Eyes: EOMI, no lid lag, anicteric sclera Mouth: no lip lesion, mucus membranes moist Cardiovascular: S1S2 reg, no murmur, positive posterior tibial pulse bilateral, Lungs: ronchi left base, no accessory muscle use Abdominal: soft, nontender to palpation, no guarding, no appreciable org anomegaly Ext: no gross muscle atrophy, no edema, no contractures Neuro: CN II-XI grossly intact, no focal neuro deficits Psych: Alert, oriented, appropriate affect Newly discovered systolic cardiomyopathy, recent fluid overload still on IV lasix. - EF 35-40%, likely consistent with prior per cardiology, and follow-up with primary progressive care nurse. - cardio to re-eval - continue with lopressor and lasix - start ACEI if okay with nephrology Pneumonia, possible gram negatives with loculated pleural effusion status post thoracentesis on 08/11 -Continue with Zosyn -Pulmonary recommendations appreciated -Pulmonary hygiene -Continue with bronchodilators Diabetes mellitus type 2 with hyperglycemia - increase levemir, fixed dose insulin, continue with sliding scale -Follow blood sugars End-stage renal disease on PD -Nephrology recommendations Paroxysmal atrial fibrillation with rapid ventricular response now in sinus -Was initially given amiodarone but converted to normal sinus rhythm -Follow telemetry Non-ST segment elevated myocardial infarction -Cardiology recommendations -Continue aspirin, Plavix, Lipitor, Lopressor Anemia of chronic disease Chronic conditions: Hypertension, dyslipidemia, hypothyroidism, COPD Objective - Vital Signs Vital signs: Vital Signs Temp 98.6 F 08/14/20 15:29 Pulse 80 08/14/20 15:58 Resp 19 08/14/20 15:29 BP 90/49 08/14/20 15:29 Pulse Ox 94 L 08/14/20 15:29 Intake & Output 08/13/20 08/14/20 08/14/20 18:59 06:59 18:59 Intake Total 240 240 480 Output Total 0 Balance 240 240 480 Weight 98.4 kg 98.4 kg Intake: Oral 240 240 480 Output: Urine 0 Other: Voiding Method Urinal Urinal # Voids 0 1 1 # Bowel Movements 1 1 - Labs CBC & Chem 7: 08/14/20 07:40 08/13/20 06:51 Labs: Abnormal Lab Results - Last 24 Hours (Table) 08/13/20 08/14/20 08/14/20 Range/Units 20:58 06:50 07:40 WBC 23.4 H (3.8-10.6) k/uL RBC 2.82 L (4.30-5.90) m/uL Hgb 9.7 L (13.0-17.5) gm/dL Hct 28.9 L (39.0-53.0) % MCV 102.6 H (80.0-100.0) fL POC Glucose (mg/dL) 355 H 296 H (75-99) mg/dL 08/14/20 08/14/20 Range/Units 11:48 16:44 WBC (3.8-10.6) k/uL RBC (4.30-5.90) m/uL Hgb (13.0-17.5) gm/dL Hct (39.0-53.0) % MCV (80.0-100.0) fL POC Glucose (mg/dL) 189 H 255 H (75-99) mg/dL Microbiology - Last 24 Hours (Table) 08/11/20 08:40 Gram Stain - Preliminary Pleural Fluid Body Fluid Culture - Preliminary
[2020-08-14] MEDS: ATORVASTATIN 80 MG TAB PO SCH (19:47)
[2020-08-14 19:59] LABS: Glucose,Whole Blood 254 mg/dL (75-99)
[2020-08-14] MEDS: SYMBICORT 160-4.5 MCG INHALER INHALATION SCH (20:46)
[2020-08-14 20:53] LABS: Calcium 7.7 mg/dL (8.4-10.2); Magnesium 2.3 mg/dL (1.6-2.3); Potassium 4.1 mmol/L (3.5-5.1)
[2020-08-15] MEDS: DIALYSIS (PERIT 2.5%) 2,500 ML 62.5 G/2,500 ML BAG INTRAPERIT SCH ×3 (01:45→18:32)
[2020-08-15] MEDS: PIPERACILLIN-TAZOBACTAM 3.375 GM in SODIUM CHLORIDE 0.9% 100 ML IVPB SCH ×2 (02:23→15:21)
[2020-08-15] MEDS: DIALYSIS (PERIT 4.25%) 2500 ML 106.25 G/2,500 ML BAG INTRAPERIT SCH ×3 (05:33→23:20)
[2020-08-15] MEDS: FUROSEMIDE 10 MG/ML 10 ML VIAL IV SCH ×2 (06:26→17:18)
[2020-08-15] MEDS: LEVOTHYROXINE 25 MCG TAB PO SCH (06:26)
[2020-08-15] MEDS: PANTOPRAZOLE 40 MG TABLET PO SCH ×2 (06:26→17:17)
[2020-08-15] MEDS: SEVELAMER 800 MG TAB PO SCH ×3 (06:26→17:17)
[2020-08-15 06:55] LABS: Glucose,Whole Blood 244 mg/dL (75-99)
[2020-08-15 07:44] LABS: HCT 31.3 % (39.0-53.0); HGB 9.8 gm/dL (13.0-17.5); MCH 32.2 pg (25.0-35.0); MCHC 31.2 g/dL (31.0-37.0); MCV 103.5 fL (80.0-100.0); Macrocytosis Slight; Platelet Count 327 k/uL (150-450); RBC 3.03 m/uL (4.30-5.90); RDW 14.8 % (11.5-15.5); WBC 20.9 k/uL (3.8-10.6)
[2020-08-15 08:04] LABS: Calcium 7.9 mg/dL (8.4-10.2); Potassium 3.9 mmol/L (3.5-5.1)
[2020-08-15 08:16] LABS: Glucose,Whole Blood 241 mg/dL (75-99)
[2020-08-15] MEDS: SYMBICORT 160-4.5 MCG INHALER INHALATION SCH ×2 (08:33→19:43)
[2020-08-15] MEDS: IPRATROPIUM-ALBUTEROL 3 ML NEB INHALATION SCH ×4 (08:33→19:43)
[2020-08-15] MEDS: INSULIN DETEMIR (LEVEMIR) 100 UNIT/ML SYR SQ SCH ×2 (08:42→20:23)
[2020-08-15] MEDS: HEPARIN SODIUM,PORCINE/PF 5,000 UNIT/0.5 ML SYRINGE SQ SCH ×3 (08:42→23:18)
[2020-08-15] MEDS: FAMOTIDINE 20 MG TAB PO SCH (08:44)
[2020-08-15] MEDS: METOPROLOL SUCCINATE (ER) 25 MG TAB.ER.24H PO SCH (08:44)
[2020-08-15] MEDS: INSULIN ASPART (NovoLOG) 100 UNIT/ML VIAL SQ SCH ×7 (08:44→20:23)
[2020-08-15] MEDS: ASPIRIN 81 MG PO SCH (08:44)
[2020-08-15] MEDS: predniSONE 20 MG TAB PO SCH (08:44)
[2020-08-15] MEDS: DOCUSATE 100 MG CAP PO SCH (08:44)
[2020-08-15] MEDS: ISOSORBIDE DINITRATE 20 MG TAB PO SCH ×2 (08:45→19:28)
[2020-08-15] MEDS: CLOPIDOGREL 75 MG TAB PO SCH (08:45)
[2020-08-15] MEDS ORDERED: CYCLOBENZAPRINE 5 MG TAB PO PRN (09:18)
--- NOTE | 2020-08-15 09:28 | P.PN ---
Subjective Patient is seen in follow-up for end-stage renal disease. He is maintained on peritoneal dialysis. No constipation. No issues with dialysis. Denies chest pain or shortness of breath. Feels weak. Vital signs are stable. General: The patient appeared well nourished and normally developed. HEENT: Head exam is unremarkable. On nasal cannula. LUNGS: Breath sounds decreased. HEART: Rate and Rhythm are regular. ABDOMEN: Soft, no distention. EXTREMITITES: Trace edema. Objective - Vital Signs Vital signs: Vital Signs Temp 97.7 F 08/15/20 03:49 Pulse 95 08/15/20 08:44 Resp 18 08/15/20 08:44 BP 111/58 08/15/20 08:39 Pulse Ox 98 08/15/20 08:39 Intake & Output 08/14/20 08/15/20 08/15/20 18:59 06:59 18:59 Intake Total 720 240 180 Output Total 0 Balance 720 240 180 Weight 98.4 kg 96.4 kg Intake: Oral 720 240 180 Output: Urine 0 Stool 0 Other: Voiding Method Urinal # Voids 1 1 0 # Bowel Movements 1 1 0 - Labs CBC & Chem 7: 08/15/20 06:55 08/15/20 06:55 Labs: Abnormal Lab Results - Last 24 Hours (Table) 08/14/20 08/14/20 08/14/20 Range/Units 11:48 16:44 19:58 WBC (3.8-10.6) k/uL RBC (4.30-5.90) m/uL Hgb (13.0-17.5) gm/dL Hct (39.0-53.0) % MCV (80.0-100.0) fL Sodium (137-145) mmol/L Chloride (98-107) mmol/L Carbon Dioxide (22-30) mmol/L BUN (9-20) mg/dL Creatinine (0.66-1.25) mg/dL Glucose (74-99) mg/dL POC Glucose (mg/dL) 189 H 255 H 254 H (75-99) mg/dL Calcium (8.4-10.2) mg/dL 08/14/20 08/15/20 08/15/20 Range/Units 20:03 06:52 06:55 WBC 20.9 H (3.8-10.6) k/uL RBC 3.03 L (4.30-5.90) m/uL Hgb 9.8 L (13.0-17.5) gm/dL Hct 31.3 L (39.0-53.0) % MCV 103.5 H (80.0-100.0) fL Sodium 134 L (137-145) mmol/L Chloride 92 L (98-107) mmol/L Carbon Dioxide 21 L (22-30) mmol/L BUN 109 H* (9-20) mg/dL Creatinine 8.36 H* (0.66-1.25) mg/dL Glucose 220 H (74-99) mg/dL POC Glucose (mg/dL) 244 H (75-99) mg/dL Calcium 7.7 L (8.4-10.2) mg/dL 08/15/20 08/15/20 Range/Units 06:55 08:15 WBC (3.8-10.6) k/uL RBC (4.30-5.90) m/uL Hgb (13.0-17.5) gm/dL Hct (39.0-53.0) % MCV (80.0-100.0) fL Sodium 133 L (137-145) mmol/L Chloride 91 L (98-107) mmol/L Carbon Dioxide (22-30) mmol/L BUN 111 H* (9-20) mg/dL Creatinine 8.39 H* (0.66-1.25) mg/dL Glucose 235 H (74-99) mg/dL POC Glucose (mg/dL) 241 H (75-99) mg/dL Calcium 7.9 L (8.4-10.2) mg/dL Microbiology - Last 24 Hours (Table) 08/11/20 08:40 Gram Stain - Preliminary Pleural Fluid Body Fluid Culture - Preliminary Assessment and Plan Plan: Assessment: 1. End-stage renal disease maintained on peritoneal dialysis. 2. Elevated BUN secondary to chronic kidney disease as well as steroids. 3. Anemia of chronic kidney disease maintained on Aranesp. 4. Diabetes mellitus. 5. Chronic kidney disease mineral bone disease maintained on Renvela. 6. Pneumonia maintained on antibiotics. Status post thoracentesis this admission. 7. Non-ST elevated myocardial infarction. Ejection fraction 35-40%. Plan: Maintain current peritoneal dialysis at changes. Low-dose TAVO inhibitor will be added. May need rehab upon discharge. He will need temporary hemodialysis if goes to a subacute rehab. Patient is quite hesitant. Case discussed with the primary team.
--- NOTE | 2020-08-15 11:14 | P.PN ---
Subjective Progress Note Date: 08/15/20 Principal diagnosis: Shortness of breath, right-sided pleural effusion. Pulmonary consult dated 08/10/2020. 74-year-old male, transferred over to the hospital, from [facility] per family request. The patient was initially taken to [facility], and then transferred to [facility] on August 02. He apparently been feeling poorly for a couple days or so or maybe a bit longer, prior to admission, with complaints of difficulty breathing, fever, and right-sided chest pain. The patient was initially seen at [facility], and epstein sferred down to [facility]. Yesterday, was notified by one of his daughters who is a nurse, that the family wanted the patient transferred down to [facility]. The patient was transferred yesterday. According to one of the daughters, the patient was needing to have a thoracentesis. Apparently there was a date from pulmonary services and interventional radiology, in terms of who should do the thoracentesis. Anyway, it was apparently frustrating to the family and the patient was transferred here. The patient is to have a thoracentesis performed by interventional radiology here today. White count 20.6, hemoglobin 8.6, hematocrit 26.3, and platelet count 251,000. PT INR are normal. Sodium 136, potassium 4.9, chlorides 92, CO2 25, anion gap 19, BUN 119, and creatinine 8.58. Chest x-ray and ultrasound of the right chest are reviewed. In addition, we added some Solu-Medrol, DC his Symbicort in favor of Pulmicort and formoterol, and added stronger antibiotics including Zosyn and vancomycin. Progress note dated 08/11/2020. 74-year-old male transferred from [facility]. The patient underwent a right-sided thoracentesis today by myself. 400 mL of bloody fluid was removed from the right pleural space. The follow-up chest x-ray looks much better. There is no obvious pneumothorax. Currently, the patient's on a couple liters of nasal O2. He apparently did develop spontaneous atrial fibrillation with RVR this morning. He was placed on amiodarone drip. Cardiology is going to see the patient but apparently did not want IV heparin at this time. The patient's currently on Zosyn and vancomycin. He was seen yesterday in consultation. Sodium 136, potassium 4.8, chlorides 94, CO2 21, anion gap 21, BUN 116, and creatinine 8.14. The patient is seen today 08/12/2020 in follow-up on the selective care unit. He is currently sitting up at the bedside. Awake and alert in no acute distress. Maintaining O2 saturations in the 90s on room air. Afebrile. Hemodynamically stable. CAT scan had revealed bilateral pleural effusions right greater than left some of which appeared loculated. He did undergo a thoracente sis on the right with 400 mL returned. Fluid analysis positive for exudate. Pathology pending. Cultures pending. He remains on DuoNeb inhalations, Pulmicort and Perforomist inhalations, IV Solu-Medrol. Currently on antibiotics in the form of Zosyn and vancomycin. The patient is seen today 08/13/2020 in follow-up on the selective care unit. Currently sitting up in a chair. Awake and alert in no acute distress. Denies any worsening shortness of breath, cough or congestion. No fever, chills or night sweats. 18 O2 saturations in the 90s on room air. He's been afebrile. Hemodynamically stable. Follow-up chest x-ray reveals improved bibasilar airspace disease. Pleural fluid cultures are revealing no growth thus far. Pathology pending. White count 26.5. Hemoglobin 9.1. MCV 100.7. Sodium 136. Potassium 4.4. BUN 102. Creatinine 8.38. Remains on bronchodilators, IV diuretics, IV Solu-Medrol, Zosyn. Progress note dated 08/14/2020. Currently, the patient's doing well. Room air saturation is 94%. Temperature normal. Heart rate 74, respiratory rate 19, blood pressure 106/64. Laboratory data includes a white count of 23.4, hemoglobin 9.7, hematocrit 28.9, and platelet count of 316,000. Microbiologic sampling is normal. Currently, the patient's doing well. He states that his breathing is much improved. He still is weak. May need some in-house rehab. Progress note dated 08/15/2020. The patient continues to do well. His room air saturations are in the mid 90s. His vital signs are stable. He still is quite weak. Apparently the family has decided to do in-home physical therapy and rehabilitation. Current vital signs are stable. He is afebrile, with a heart rate of 92 bpm, respiratory rate 18, blood pressure 118/59, and a room air saturation of 98%. Labs today include a white count of 20.9, hemoglobin 9.8, hematocrit 31.3, and a platelet count of 327,000. Sodium 133, potassium 3.9, chlorides 91, CO2 26, anion gap 16, BUN 111, creatinine 8.39. Objective - Vital Signs Vital signs: Vital Signs Temp 97.7 F 08/15/20 03:49 Pulse 95 08/15/20 08:44 Resp 18 08/15/20 08:44 BP 111/58 08/15/20 08:39 Pulse Ox 98 08/15/20 08:39 Intake & Output 08/14/20 08/15/20 08/15/20 18:59 06:59 18:59 Intake Total 720 240 180 Output Total 0 Balance 720 240 180 Weight 98.4 kg 96.4 kg Intake: Oral 720 240 180 Output: Urine 0 Stool 0 Other: Voiding Method Urinal # Voids 1 1 0 # Bowel Movements 1 1 0 - Exam No respiratory distress, oriented 3. Patient has improved breathing post thoracentesis. Currently on room air. Saturations are 98%. HEENT examination is grossly unremarkable. Neck supple. Full range of motion. No adenopathy thyromegaly or neck vein distention. Cardiovascular examination reveals regular rhythm rate. S1-S2 normal. No S3 or S4. No discernible murmur noted. Heart sounds are distant. Heart rate 66 bpm. Lungs reveal mild scattered rhonchi at the right base. No wheezes or crackles. Breath sounds otherwise normal. Abdomen soft bowel sounds are heard. No masses or tenderness. Extremities are intact. No cyanosis clubbing or edema. Skin is without rash or lesion. Neurologic examination is brief but nonfocal. - Labs CBC & Chem 7: 08/15/20 06:55 08/15/20 06:55 Labs: Abnormal Lab Results - Last 24 Hours (Table) 08/14/20 08/14/20 08/14/20 Range/Units 11:48 16:44 19:58 WBC (3.8-10.6) k/uL RBC (4.30-5.90) m/uL Hgb (13.0-17.5) gm/dL Hct (39.0-53.0) % MCV (80.0-100.0) fL Sodium (137-145) mmol/L Chloride (98-107) mmol/L Carbon Dioxide (22-30) mmol/L BUN (9-20) mg/dL Creatinine (0.66-1.25) mg/dL Glucose (74-99) mg/dL POC Glucose (mg/dL) 189 H 255 H 254 H (75-99) mg/dL Calcium (8.4-10.2) mg/dL 08/14/20 08/15/20 08/15/20 Range/Units 20:03 06:52 06:55 WBC 20.9 H (3.8-10.6) k/uL RBC 3.03 L (4.30-5.90) m/uL Hgb 9.8 L (13.0-17.5) gm/dL Hct 31.3 L (39.0-53.0) % MCV 103.5 H (80.0-100.0) fL Sodium 134 L (137-145) mmol/L Chloride 92 L (98-107) mmol/L Carbon Dioxide 21 L (22-30) mmol/L BUN 109 H* (9-20) mg/dL Creatinine 8.36 H* (0.66-1.25) mg/dL Glucose 220 H (74-99) mg/dL POC Glucose (mg/dL) 244 H (75-99) mg/dL Calcium 7.7 L (8.4-10.2) mg/dL 08/15/20 08/15/20 Range/Units 06:55 08:15 WBC (3.8-10.6) k/uL RBC (4.30-5.90) m/uL Hgb (13.0-17.5) gm/dL Hct (39.0-53.0) % MCV (80.0-100.0) fL Sodium 133 L (137-145) mmol/L Chloride 91 L (98-107) mmol/L Carbon Dioxide (22-30) mmol/L BUN 111 H* (9-20) mg/dL Creatinine 8.39 H* (0.66-1.25) mg/dL Glucose 235 H (74-99) mg/dL POC Glucose (mg/dL) 241 H (75-99) mg/dL Calcium 7.9 L (8.4-10.2) mg/dL Microbiology - Last 24 Hours (Table) 08/11/20 08:40 Gram Stain - Final Pleural Fluid Body Fluid Culture - Final Assessment and Plan Assessment: Right basilar pneumonia with a right parapneumonic effusion, rule out empyema. New onset fibrillation with RVR, currently on amiodarone. Status post right-sided thoracentesis, with 400 mL of bloody fluid removed and sent to laboratory for analysis. Possible NSTEMI. History of end-stage renal disease, currently on peritoneal dialysis. History of diabetes mellitus. History of hyperlipidemia. History of hypertension. History of coronary artery disease. History of hypothyroidism. History of COPD from previous heavy tobacco use. Anemia of chronic disease. Plan: Plan dated 08/10/2020. The patient's updrafts were changed to him. Also think and ipratropium bromide, 4 times a day and when necessary. In addition, we discontinued Symbicort, and fever up Pulmicort 1 mg, mixed with formoterol, 20 g, twice a day. In addition, we discontinued prednisone in favor of Solu-Medrol. Finally, we stopped the ceftriaxone and started the patient on Zosyn and vancomycin. The patient is to have a thoracentesis performed by interventional radiology today. We'll send it for chemistry including LDH, protein, glucose, cytology, and microbiology. Additional recommendations and suggestions are forthcoming. Prognosis is guarded. Plan dated 08/11/2020. Currently, the patient appears to be a bit better following the thoracentesis. His atrial fibrillation spontaneously O went back into normal sinus rhythm. He was placed on amiodarone by IV infusion. Cardiology did not want IV heparin at this time. The fluid analysis will be done and hopefully help us determine what's going on in his right chest area. 400 mL of bloody fluid was withdrawn during the right thoracentesis. The patient tolerated procedure well. There is no postprocedure pneumothorax. The patient continues on antibiotics. Prognosis is guarded. He is currently on 3 L. Saturations are 92-93%. Plan dated 08/14/2020. Currently, the patient looks much improved. His been weaned down to room air. The patient is not receiving any IV fluids. His vital signs are otherwise stable. Currently, all microbiology is negative. The patient remains on Zosyn, prednisone, albuterol sulfate, ipratropium bromide, Pulmicort, and formoterol. Additional recommendations and suggestions are forthcoming. The patient is not quite ready for discharge. We will continue to follow make recommendations where appropriate. Plan dated 08/15/2020. Currently, the patient's doing much better. Patient has been weaned off of oxygen therapy. Patient's on prednisone 40 mg a day and continues on Zosyn. Microbiology is thus far negative. The patient is weak. The plan I believe is discharged to home with in-home rehab/physical therapy. We will continue to follow make recommendations were appropriate. I have been keeping the family updated. Time with Patient: Less than 30
[2020-08-15 11:47] LABS: Glucose,Whole Blood 153 mg/dL (75-99)
--- NOTE | 2020-08-15 13:06 | P.PN ---
Subjective Progress Note Date: 08/15/20 Patient was interviewed and examined sitting up in a chair with present at the bedside. He reports that he is continuing to improve day by day. GENERAL: Well-appearing, well-nourished and in no acute distress. NECK: Supple without JVD or thyromegaly. LUNGS: Breath sounds demonstrate mild crackles in left base. Clear on the right.. Respiration equal and unlabored. No wheezes, rales or rhonchi. HEART: Regular rate and rhythm without murmurs, rubs or gallops. S1 and S2 heard. EXTREMITIES: Normal range of motion, no edema. No clubbing or cyanosis. Peripheral pulses intact and strong. VITALS: Temperature 97.7, pulse 74, respiratory rate 16, blood pressure 102/55, O2 satur ation 92% on room air TELEMETRY: Telemetry demonstrates normal sinus rhythm, with inverted T waves and PVCs. LABS: [White count is 20.9, hemoglobin 9.8, sodium 133, potassium 3.9, B1 111, creatinine 8.39, glucose 235] IMPRESSION: [Brief episode of A. fib with RVR Pneumonia Pleural effusion End-stage renal disease on peritoneal dialysis Diabetes mellitus Hypertension Dyslipidemia Peripheral vascular disease Recent non-ST elevated myocardial infarction] PLAN: Continue telemetry Ongoing treatment of pneumonia Patient and would like to switch cardiologists and start seeing Dr. Gallardo The patient has been seen and evaluated. Plan of care has been reviewed and agreed upon by Dr. Gallardo. Objective - Vital Signs Vital signs: Vital Signs Temp 97.7 F 08/15/20 12:10 Pulse 78 08/15/20 12:35 Resp 18 08/15/20 12:35 BP 102/55 08/15/20 12:10 Pulse Ox 92 L 08/15/20 12:10 Intake & Output 08/14/20 08/15/20 08/15/20 18:59 06:59 18:59 Intake Total 720 240 180 Output Total 0 Balance 720 240 180 Weight 98.4 kg 96.4 kg Intake: Oral 720 240 180 Output: Urine 0 Stool 0 Other: Voiding Method Urinal Urinal # Voids 1 1 0 # Bowel Movements 1 1 0 - Labs CBC & Chem 7: 08/15/20 06:55 08/15/20 06:55 Labs: Abnormal Lab Results - Last 24 Hours (Table) 08/14/20 08/14/20 08/14/20 Range/Units 16:44 19:58 20:03 WBC (3.8-10.6) k/uL RBC (4.30-5.90) m/uL Hgb (13.0-17.5) gm/dL Hct (39.0-53.0) % MCV (80.0-100.0) fL Sodium 134 L (137-145) mmol/L Chloride 92 L (98-107) mmol/L Carbon Dioxide 21 L (22-30) mmol/L BUN 109 H* (9-20) mg/dL Creatinine 8.36 H* (0.66-1.25) mg/dL Glucose 220 H (74-99) mg/dL POC Glucose (mg/dL) 255 H 254 H (75-99) mg/dL Calcium 7.7 L (8.4-10.2) mg/dL 08/15/20 08/15/20 08/15/20 Range/Units 06:52 06:55 06:55 WBC 20.9 H (3.8-10.6) k/uL RBC 3.03 L (4.30-5.90) m/uL Hgb 9.8 L (13.0-17.5) gm/dL Hct 31.3 L (39.0-53.0) % MCV 103.5 H (80.0-100.0) fL Sodium 133 L (137-145) mmol/L Chloride 91 L (98-107) mmol/L Carbon Dioxide (22-30) mmol/L BUN 111 H* (9-20) mg/dL Creatinine 8.39 H* (0.66-1.25) mg/dL Glucose 235 H (74-99) mg/dL POC Glucose (mg/dL) 244 H (75-99) mg/dL Calcium 7.9 L (8.4-10.2) mg/dL 08/15/20 08/15/20 Range/Units 08:15 11:46 WBC (3.8-10.6) k/uL RBC (4.30-5.90) m/uL Hgb (13.0-17.5) gm/dL Hct (39.0-53.0) % MCV (80.0-100.0) fL Sodium (137-145) mmol/L Chloride (98-107) mmol/L Carbon Dioxide (22-30) mmol/L BUN (9-20) mg/dL Creatinine (0.66-1.25) mg/dL Glucose (74-99) mg/dL POC Glucose (mg/dL) 241 H 153 H (75-99) mg/dL Calcium (8.4-10.2) mg/dL Microbiology - Last 24 Hours (Table) 08/11/20 08:40 Gram Stain - Final Pleural Fluid Body Fluid Culture - Final
--- NOTE | 2020-08-15 16:28 | P.PN ---
Subjective Progress Note Date: 08/15/20 (delayed charting seen at 0915) Principal diagnosis: shortness of breath Patient is a 74-year-old man with end-stage renal disease on peritoneal dialysis, hypertension, and diabetes was transferred from [facility] to our facility secondary to healthcare associated pneumonia with loculated pleural effusion. Repeat echo with EF 35-40% and a few days prior at [place] was 55-60% and they were considering heart cath. Patient seen and examined at bedside. Feeling good, no complaints currently, denied nausea, vomiting, diarrhea General: non toxic, ill-appearing, appears older than stated age Derm: warm, dry Head: atraumatic, normocephalic, symmetric Eyes: EOMI, no lid lag, anicteric sclera Mouth: no lip lesion, mucus membranes moist Cardiovascular: S1S2 reg, no murmur, positive posterior tibial pulse bilateral, Lungs: ronchi left base, no accessory muscle use Abdominal: soft, nontender to palpation, no guarding, no appreciable organomegaly Ext: no gross muscle atrophy, no edema, no contractures Neuro: CN II-XI grossly intact, no focal neuro deficits Psych: Alert, oriented, appropriate affect Newly discovered systolic cardiomyopathy, recent fluid overload still on IV lasix. - EF 35-40%, likely consistent with prior per cardiology, and follow-up with primary trade mark examiner. - cardio recs appreciated - continue with lopressor and lasix - start ACEI Pneumonia, possible gram negatives with loculated pleural effusion status post thoracentesis on 08/11 -Continue with Zosyn -Pulmonary recommendations appreciated -Pulmonary hygiene -Continue with bronchodilators Diabetes mellitus type 2 with hyperglycemia - increase levemir, fixed dose insulin, continue with sliding scale -Follow blood sugars - will need insulin at home End-stage renal disease on PD -Nephrology recommendations -Awaiting new dialysalate at home Paroxysmal atrial fibrillation with rapid ventricular response now in sinus -Was initially given amiodarone but converted to normal sinus rhythm -Follow telemetry Non-ST segment elevated myocardial infarction -Cardiology recommendations -Continue aspirin, Plavix, Lipitor, Lopressor Anemia of chronic disease, stable - follow CBC Chronic conditions: Hypertension, dyslipidemia, hypothyroidism, COPD DVT prophylaxis: SCDs Discussed with: patient, nursing, family Anticipated discharge: 08/18/[address]: home-awaiting correct dialysis supplies A total of 35 minutes was spent on the care of this complex patient more than 50% of the time was spent in counseling and care coordination. Objective - Vital Signs Vital signs: Vital Signs Temp 97.7 F 08/15/20 12:10 Pulse 80 08/15/20 16:17 Resp 18 08/15/20 16:17 BP 102/51 08/15/20 14:55 Pulse Ox 91 L 08/15/20 14:55 Intake & Output 08/14/20 08/15/20 08/15/20 18:59 06:59 18:59 Intake Total 720 240 420 Output Total 0 Balance 720 240 420 Weight 98.4 kg 96.4 kg Intake: Oral 720 240 420 Output: Urine 0 Stool 0 Other: Voiding Method Urinal Urinal # Voids 1 1 0 # Bowel Movements 1 1 0 - Labs CBC & Chem 7: 08/15/20 06:55 08/15/20 06:55 Labs: Abnormal Lab Results - Last 24 Hours (Table) 08/14/20 08/14/20 08/14/20 Range/Units 16:44 19:58 20:03 WBC (3.8-10.6) k/uL RBC (4.30-5.90) m/uL Hgb (13.0-17.5) gm/dL Hct (39.0-53.0) % MCV (80.0-100.0) fL Sodium 134 L (137-145) mmol/L Chloride 92 L (98-107) mmol/L Carbon Dioxide 21 L (22-30) mmol/L BUN 109 H* (9-20) mg/dL Creatinine 8.36 H* (0.66-1.25) mg/dL Glucose 220 H (74-99) mg/dL POC Glucose (mg/dL) 255 H 254 H (75-99) mg/dL Calcium 7.7 L (8.4-10.2) mg/dL 08/15/20 08/15/20 08/15/20 Range/Units 06:52 06:55 06:55 WBC 20.9 H (3.8-10.6) k/uL RBC 3.03 L (4.30-5.90) m/uL Hgb 9.8 L (13.0-17.5) gm/dL Hct 31.3 L (39.0-53.0) % MCV 103.5 H (80.0-100.0) fL Sodium 133 L (137-145) mmol/L Chloride 91 L (98-107) mmol/L Carbon Dioxide (22-30) mmol/L BUN 111 H* (9-20) mg/dL Creatinine 8.39 H* (0.66-1.25) mg/dL Glucose 235 H (74-99) mg/dL POC Glucose (mg/dL) 244 H (75-99) mg/dL Calcium 7.9 L (8.4-10.2) mg/dL 08/15/20 08/15/20 Range/Units 08:15 11:46 WBC (3.8-10.6) k/uL RBC (4.30-5.90) m/uL Hgb (13.0-17.5) gm/dL Hct (39.0-53.0) % MCV (80.0-100.0) fL Sodium (137-145) mmol/L Chloride (98-107) mmol/L Carbon Dioxide (22-30) mmol/L BUN (9-20) mg/dL Creatinine (0.66-1.25) mg/dL Glucose (74-99) mg/dL POC Glucose (mg/dL) 241 H 153 H (75-99) mg/dL Calcium (8.4-10.2) mg/dL Microbiology - Last 24 Hours (Table) 08/11/20 08:40 Gram Stain - Final Pleural Fluid Body Fluid Culture - Final
[2020-08-15 16:55] LABS: Glucose,Whole Blood 272 mg/dL (75-99)
[2020-08-15] MEDS ORDERED: SODIUM CHLORIDE 0.9% 500 ML 250 ML IV ONE (18:36)
[2020-08-15] MEDS ORDERED: SODIUM CHLORIDE 0.9% 500 ML IV ONE (18:59)
[2020-08-15] MEDS ORDERED: SODIUM CHLORIDE 0.9% 500 ML 500 ML IV ONE (19:02)
[2020-08-15 19:08] LABS: Glucose,Whole Blood 256 mg/dL (75-99)
[2020-08-15] MEDS ORDERED: MIDODRINE 5 MG TAB PO STA (20:02)
[2020-08-15] MEDS: ATORVASTATIN 80 MG TAB PO SCH (20:11)
[2020-08-15 20:19] LABS: Glucose,Whole Blood 199 mg/dL (75-99)
[2020-08-16] MEDS: DIALYSIS (PERIT 2.5%) 2,500 ML 62.5 G/2,500 ML BAG INTRAPERIT SCH (01:45)
[2020-08-16] MEDS: PIPERACILLIN-TAZOBACTAM 3.375 GM in SODIUM CHLORIDE 0.9% 100 ML IVPB SCH (02:33)
[2020-08-16] MEDS: DIALYSIS (PERIT 4.25%) 2500 ML 106.25 G/2,500 ML BAG INTRAPERIT SCH (05:27)
[2020-08-16] MEDS: FUROSEMIDE 10 MG/ML 10 ML VIAL IV SCH (06:07)
[2020-08-16] MEDS: PANTOPRAZOLE 40 MG TABLET PO SCH ×2 (06:39→17:39)
[2020-08-16] MEDS: LEVOTHYROXINE 25 MCG TAB PO SCH (06:39)
[2020-08-16] MEDS: SEVELAMER 800 MG TAB PO SCH ×3 (06:40→17:39)
[2020-08-16] MEDS: INSULIN ASPART (NovoLOG) 100 UNIT/ML VIAL SQ SCH ×3 (07:09→12:26)
[2020-08-16 07:10] LABS: Glucose,Whole Blood 265 mg/dL (75-99)
[2020-08-16] MEDS: INSULIN DETEMIR (LEVEMIR) 100 UNIT/ML SYR SQ SCH (07:11)
[2020-08-16] MEDS: IPRATROPIUM-ALBUTEROL 3 ML NEB INHALATION SCH ×4 (07:49→21:19)
[2020-08-16] MEDS: SYMBICORT 160-4.5 MCG INHALER INHALATION SCH ×2 (07:50→21:19)
[2020-08-16 08:18] LABS: Calcium 7.6 mg/dL (8.4-10.2); Potassium 3.6 mmol/L (3.5-5.1)
[2020-08-16 08:26] LABS: HCT 32.5 % (39.0-53.0); HGB 10.2 gm/dL (13.0-17.5); Hypochromasia Slight; MCHC 31.6 g/dL (31.0-37.0); MCV 104.4 fL (80.0-100.0); Macrocytosis Moderate; Mean Platelet Volume 8.1; Platelet Count 334 k/uL (150-450); RBC 3.11 m/uL (4.30-5.90); RDW 15.6 % (11.5-15.5); WBC 21.3 k/uL (3.8-10.6)
--- NOTE | 2020-08-16 08:55 | P.PN ---
Subjective Patient is seen in follow-up for end-stage renal disease. He is maintained on peritoneal dialysis. No constipation. No issues with dialysis. Became hypotensive yesterday and received a liter bolus of normal saline. Also given a dose of midodrine. Blood pressure 91/53 this morning. Wants to go home. Vital signs are stable. General: The patient appeared well nourished and normally developed. HEENT: Head exam is unremarkable. On nasal cannula. LUNGS: Breath sounds decreased. HEART: Rate and Rhythm are regular. ABDOMEN: Soft, no distention. EXTREMITITES: Trace edema. Objective - Vital Signs Vital signs: Vital Signs Temp 97.8 F 08/16/20 03:47 Pulse 75 08/16/20 08:05 Resp 19 08/16/20 05:38 BP 91/53 08/16/20 05:38 Pulse Ox 92 L 08/16/20 05:38 Intake & Output 08/15/20 08/16/20 08/16/20 18:59 06:59 18:59 Intake Total 1140 120 Output Total 0 920 Balance 1140 -800 Weight 97.2 kg Intake: Oral 1140 120 Output: Urine 0 0 Stool 0 920 Other: Voiding Method Urinal Urinal # Voids 2 1 # Bowel Movements 0 3 1 - Labs CBC & Chem 7: 08/16/20 07:35 08/16/20 07:35 Labs: Abnormal Lab Results - Last 24 Hours (Table) 08/15/20 08/15/20 08/15/20 Range/Units 11:46 16:53 18:41 WBC (3.8-10.6) k/uL RBC (4.30-5.90) m/uL Hgb (13.0-17.5) gm/dL Hct (39.0-53.0) % MCV (80.0-100.0) fL RDW (11.5-15.5) % Sodium (137-145) mmol/L Chloride (98-107) mmol/L Carbon Dioxide (22-30) mmol/L BUN (9-20) mg/dL Creatinine (0.66-1.25) mg/dL Glucose (74-99) mg/dL POC Glucose (mg/dL) 153 H 272 H 256 H (75-99) mg/dL Calcium (8.4-10.2) mg/dL Troponin I (0.000-0.034) ng/mL 08/15/20 08/15/20 08/15/20 Range/Units 20:11 20:18 23:50 WBC (3.8-10.6) k/uL RBC (4.30-5.90) m/uL Hgb (13.0-17.5) gm/dL Hct (39.0-53.0) % MCV (80.0-100.0) fL RDW (11.5-15.5) % Sodium (137-145) mmol/L Chloride (98-107) mmol/L Carbon Dioxide (22-30) mmol/L BUN (9-20) mg/dL Creatinine (0.66-1.25) mg/dL Glucose (74-99) mg/dL POC Glucose (mg/dL) 199 H (75-99) mg/dL Calcium (8.4-10.2) mg/dL Troponin I 5.350 H* 5.640 H* (0.000-0.034) ng/mL 08/16/20 08/16/20 08/16/20 Range/Units 07:08 07:35 07:35 WBC 21.3 H (3.8-10.6) k/uL RBC 3.11 L (4.30-5.90) m/uL Hgb 10.2 L (13.0-17.5) gm/dL Hct 32.5 L (39.0-53.0) % MCV 104.4 H (80.0-100.0) fL RDW 15.6 H (11.5-15.5) % Sodium 134 L (137-145) mmol/L Chloride 97 L (98-107) mmol/L Carbon Dioxide 18 L (22-30) mmol/L BUN 108 H* (9-20) mg/dL Creatinine 8.27 H* (0.66-1.25) mg/dL Glucose 244 H (74-99) mg/dL POC Glucose (mg/dL) 265 H (75-99) mg/dL Calcium 7.6 L (8.4-10.2) mg/dL Troponin I (0.000-0.034) ng/mL Microbiology - Last 24 Hours (Table) 08/11/20 08:40 Gram Stain - Final Pleural Fluid Body Fluid Culture - Final Assessment and Plan Plan: Assessment: 1. End-stage renal disease maintained on peritoneal dialysis. 2. Elevated BUN secondary to chronic kidney disease as well as steroids. 3. Anemia of chronic kidney disease maintained on Aranesp. 4. Diabetes mellitus. 5. Chronic kidney disease mineral bone disease maintained on Renvela. 6. Pneumonia maintained on antibiotics. Status post thoracentesis this admission. 7. Non-ST elevated myocardial infarction. Ejection fraction 35-40%. Plan: I will change peritoneal dialysis exchanges to all 1.5% solution. Lisinopril has been discontinued. Add midodrine. To be held for systolic blood pressure greater than 110. May need rehab upon discharge. He will need temporary hemodialysis if goes to a subacute rehab. Patient is quite hesitant.
[2020-08-16 09:22] VITALS: RESP 18
[2020-08-16] MEDS: ISOSORBIDE DINITRATE 20 MG TAB PO SCH ×2 (09:22→09:27)
[2020-08-16] MEDS: DOCUSATE 100 MG CAP PO SCH (09:22)
[2020-08-16] MEDS: ASPIRIN 81 MG PO SCH (09:22)
[2020-08-16] MEDS: HEPARIN SODIUM,PORCINE/PF 5,000 UNIT/0.5 ML SYRINGE SQ SCH ×3 (09:22→22:14)
[2020-08-16] MEDS: METOPROLOL SUCCINATE (ER) 25 MG TAB.ER.24H PO SCH ×2 (09:22→09:27)
[2020-08-16] MEDS: CLOPIDOGREL 75 MG TAB PO SCH (09:23)
[2020-08-16] MEDS: FAMOTIDINE 20 MG TAB PO SCH (09:23)
[2020-08-16] MEDS: predniSONE 20 MG TAB PO SCH (09:23)
--- NOTE | 2020-08-16 09:37 | P.PN ---
Subjective Progress Note Date: 08/16/20 Principal diagnosis: shortness of breath Patient is a 74-year-old man with end-stage renal disease on peritoneal dialysis, hypertension, and diabetes was transferred from [facility] to our facility secondary to healthcare associated pneumonia with loculated pleural effusion. At that time he had been diagnosed with a non-ST segment elevated myocardial infarction and had a troponin greater than 6, echocardiogram showed ejection fraction of 55% with global hypokinesis. He underwent thoracentesis on 08/11 with removal of 400 mL of bloody fluid, cultures were negative from the fluid, however these were obtained after patient had been on antibiotics, pathology did not show any definitive cancer. He has been weak but progressing slowly. On the evening of 08/15 patient became slightly hypotensive, he had been started on metoprolol 08/14 and lisinopril 08/15. He required a total of 1.5 L of IV fluids as well as a dose of Midrin and his blood pressure normalized. Lisinopril is discontinued. We'll parameters were added to metoprolol and Imdur. Repeat troponin was down trending from prior at [place]. Patient seen and examined at bedside. He reports that he started having liquid stools a total of 5 times overnight, no abdominal pain, thinks that his nelly athing is the same as yesterday, no chest pain, not light headed or dizzy. General: non toxic, ill-appearing, appears older than stated age Derm: warm, dry Head: atraumatic, normocephalic, symmetric Eyes: EOMI, no lid lag, anicteric sclera Mouth: no lip lesion, mucus membranes moist Cardiovascular: S1S2 reg, no murmur, positive posterior tibial pulse bilateral, Lungs: ronchi bilateral bases, no accessory muscle use Abdominal: soft, nontender to palpation, no guarding, no appreciable organom egaly Ext: no gross muscle atrophy, no edema, no contractures Neuro: CN II-XI grossly intact, no focal neuro deficits Psych: Alert, oriented, appropriate affect Newly discovered systolic cardiomyopathy, - EF 35-40%, likely consistent with prior per cardiology, and follow-up with primary dispensing operator. - cardio recs appreciated - continue with lopressor with parameters - off lasix -no ACEI due to hypotension, patient was on cozzar at home but no BB Hypotension - stopped lasix, lisinopril stopped - midodrine added by nephro Diarrhea - d/w pulm and abx stopped - check c diff Pneumonia, possible gram negatives with loculated pleural effusion status post thoracentesis on 08/11 -Continue with Zosyn -Pulmonary recommendations appreciated -Pulmonary hygiene -Continue with bronchodilators - steroids being weaned. Diabetes mellitus type 2 with hyperglycemia - Decrease levemir and fixed dose insulin for changes in dextrose content of dialisylate, continue with sliding scale - on discharge home to convert to once daily lantus, and possible fixed dose -Follow blood sugars End-stage renal disease on PD -Nephrology recommendations -Awaiting new dialysalate at home Paroxysmal atrial fibrillation with rapid ventricular response now in sinus -Was initially given amiodarone but converted to normal sinus rhythm -Follow telemetry Non-ST segment elevated myocardial infarction -Cardiology recommendations -Continue aspirin, Plavix, Lipitor, Lopressor Anemia of chronic disease, stable - follow CBC Chronic conditions: Hypertension, dyslipidemia, hypothyroidism, COPD DVT prophylaxis: SCDs Discussed with: patient, nursing, family Anticipated discharge: 08/18/[address]: home-awaiting correct dialysis supplies A total of 35 minutes was spent on the care of this complex patient more than 50% of the time was spent in counseling and care coordination. Objective - Vital Signs Vital signs: Vital Signs Temp 97.8 F 08/16/20 03:47 Pulse 75 08/16/20 08:05 Resp 19 08/16/20 05:38 BP 91/53 08/16/20 05:38 Pulse Ox 92 L 08/16/20 05:38 Intake & Output 08/15/20 08/16/20 08/16/20 18:59 06:59 18:59 Intake Total 1140 120 Output Total 0 920 Balance 1140 -800 Weight 97.2 kg Intake: Oral 1140 120 Output: Urine 0 0 Stool 0 920 Other: Voiding Method Urinal Urinal # Voids 2 1 # Bowel Movements 0 3 1 - Labs CBC & Chem 7: 08/16/20 07:35 08/16/20 07:35 Labs: Abnormal Lab Results - Last 24 Hours (Table) 08/15/20 08/15/20 08/15/20 Range/Units 11:46 16:53 18:41 WBC (3.8-10.6) k/uL RBC (4.30-5.90) m/uL Hgb (13.0-17.5) gm/dL Hct (39.0-53.0) % MCV (80.0-100.0) fL RDW (11.5-15.5) % Sodium (137-145) mmol/L Chloride (98-107) mmol/L Carbon Dioxide (22-30) mmol/L BUN (9-20) mg/dL Creatinine (0.66-1.25) mg/dL Glucose (74-99) mg/dL POC Glucose (mg/dL) 153 H 272 H 256 H (75-99) mg/dL Calcium (8.4-10.2) mg/dL Troponin I (0.000-0.034) ng/mL 08/15/20 08/15/20 08/15/20 Range/Units 20:11 20:18 23:50 WBC (3.8-10.6) k/uL RBC (4.30-5.90) m/uL Hgb (13.0-17.5) gm/dL Hct (39.0-53.0) % MCV (80.0-100.0) fL RDW (11.5-15.5) % Sodium (137-145) mmol/L Chloride (98-107) mmol/L Carbon Dioxide (22-30) mmol/L BUN (9-20) mg/dL Creatinine (0.66-1.25) mg/dL Glucose (74-99) mg/dL POC Glucose (mg/dL) 199 H (75-99) mg/dL Calcium (8.4-10.2) mg/dL Troponin I 5.350 H* 5.640 H* (0.000-0.034) ng/mL 08/16/20 08/16/20 08/16/20 Range/Units 07:08 07:35 07:35 WBC 21.3 H (3.8-10.6) k/uL RBC 3.11 L (4.30-5.90) m/uL Hgb 10.2 L (13.0-17.5) gm/dL Hct 32.5 L (39.0-53.0) % MCV 104.4 H (80.0-100.0) fL RDW 15.6 H (11.5-15.5) % Sodium 134 L (137-145) mmol/L Chloride 97 L (98-107) mmol/L Carbon Dioxide 18 L (22-30) mmol/L BUN 108 H* (9-20) mg/dL Creatinine 8.27 H* (0.66-1.25) mg/dL Glucose 244 H (74-99) mg/dL POC Glucose (mg/dL) 265 H (75-99) mg/dL Calcium 7.6 L (8.4-10.2) mg/dL Troponin I (0.000-0.034) ng/mL Microbiology - Last 24 Hours (Table) 08/11/20 08:40 Gram Stain - Final Pleural Fluid Body Fluid Culture - Final
[2020-08-16 09:47] LABS: Band Neutrophils % 1 %; Eosinophils # (M) 0.21 k/uL (0-0.7); Lymphocytes # (M) 1.07 k/uL (1.0-4.8); Metamyelocytes # (M) 0.43 k/uL (0); Metamyelocytes % 2 %; Monocytes # (M) 0.64 k/uL (0-1.0); Myelocytes # (M) 0.85 k/uL (0); Myelocytes % 4 %; Neutrophils % (M) 85 %; Nucleated Red Blood Cells 0 /100 WBC (0-0); Polychromasia Present; Total Cells Counted 200
[2020-08-16] MEDS ORDERED: DIALYSIS (PERIT 1.5%) 2,500 ML 37.5 G/2,500 ML BAG INTRAPERIT SCH (10:00)
[2020-08-16] MEDS ORDERED: MIDODRINE 5 MG TAB PO ONE (10:15)
--- NOTE | 2020-08-16 11:13 | P.PN ---
Subjective Progress Note Date: 08/16/20 Principal diagnosis: Shortness of breath, right-sided pleural effusion 74-year-old male, transferred over to the hospital, from [facility] per family request. The patient was initially taken to [facility], and then transferred to [facility] on August 02. He apparently been feeling poorly for a couple days or so or maybe a bit longer, prior to admission, with complaints of difficulty breathing, fever, and right-sided chest pain. The patient was initially seen at [facility], and transferred down to [facility]. Yesterday, was notified by one of his daughters who is a nurse, that the family wanted the patient transferred down to [facility]. The patient was transferred yesterday. According to one of the daughters, the patient was needing to have a thoracentesis. Apparently there was a date from pulmonary services and interventional radiology, in terms of who should do the thoracentesis. Anyway, it was apparently frustrating to the family and the patient was transferred he re. The patient is to have a thoracentesis performed by interventional radiology here today. White count 20.6, hemoglobin 8.6, hematocrit 26.3, and platelet count 251,000. PT INR are normal. Sodium 136, potassium 4.9, chlorides 92, CO2 25, anion gap 19, BUN 119, and creatinine 8.58. Chest x-ray and ultrasound of the right chest are reviewed. In addition, we added some Solu-Medrol, DC his Symbicort in favor of Pulmicort and formoterol, and added stronger antibiotics including Zosyn and vancomycin. Progress note dated 08/11/2020. 74-year-old male transferred from [facility]. The patient underwent a right-sided thoracentesis today by myself. 400 mL of bloody fluid was removed from the right pleural space. The follow-up chest x-ray looks much better. There is no obvious pneumothorax. Currently, the patient's on a couple liters of nasal O2. He apparently did develop spontaneous atrial fibrillation with RVR this morning. He was placed on amiodarone drip. Cardiology is going to see the patient but apparently did not want IV heparin at this time. The patient's currently on Zosyn and vancomycin. He was seen yesterday in consultation. Sodium 136, potassium 4.8, chlorides 94, CO2 21, anion gap 21, BUN 116, and creatinine 8.14. The patient is seen today 08/12/2020 in follow-up on the selective care unit. He is currently sitting up at the bedside. Awake and alert in no acute distress. Maintaining O2 saturations in the 90s on room air. Afebrile. Hemodynamically stable. CAT scan had revealed bilateral pleural effusions right greater than left some of which appeared loculated. He did undergo a thoracentesis on the right with 400 mL returned. Fluid analysis positive for exudate. Pathology pending. Cultures pending. He remains on DuoNeb inhalations, Pulmicort and Perforomist inhalations, IV Solu-Medrol. Currently on antibiotics in the form of Zosyn and vancomycin. The patient is seen today 08/13/2020 in follow-up on the selective care unit. Currently sitting up in a chair. Awake and alert in no acute distress. Denies any worsening shortness of breath, cough or congestion. No fever, chills or night sweats. 18 O2 saturations in the 90s on room air. He's been afebrile. Hemodynamically stable. Follow-up chest x-ray reveals improved bibasilar airspace disease. Pleural fluid cultures are revealing no growth thus far. Pa thology pending. White count 26.5. Hemoglobin 9.1. MCV 100.7. Sodium 136. Potassium 4.4. BUN 102. Creatinine 8.38. Remains on bronchodilators, IV diuretics, IV Solu-Medrol, Zosyn. The patient is seen today 08/16/2020 in follow-up on the selective care unit. He is currently resting comfortably in bed. Awake and alert in no acute distress. He is somewhat weak and fatigued today. He's been having issues with diarrhea. Hypotensive. Pathology on pleural fluid was nondiagnostic for daniel gnancy. Cultures revealed no growth. White count 21.3. Hemoglobin 10.2. Sodium 134. Potassium 3.6. BUN 108. Creatinine 8.27. Glucose 244. He remains on bronchodilators, prednisone, antibiotics in the form of Zosyn and heparin for DVT prophylaxis. Objective - Vital Signs Vital signs: Vital Signs Temp 98.2 F 08/16/20 08:00 Pulse 75 07/04/21 08:05 Resp 18 08/16/20 08:00 BP 70/47 08/16/20 09:56 Pulse Ox 92 L 08/16/20 08:00 Intake & Output 08/15/20 08/16/20 08/16/20 18:59 06:59 18:59 Intake Total 1140 120 480 Output Total 0 920 Balance 1140 -800 480 Weight 97.2 kg Intake: Oral 1140 120 480 Output: Urine 0 0 Stool 0 920 Other: Voiding Method Urinal Urinal Urinal # Voids 2 1 # Bowel Movements 0 3 1 - Exam GENERAL EXAM: Alert, pleasant 74-year-old gentleman, on room air, comfortable in no apparent distress. HEAD: Normocephalic. EYES: Normal reaction of pupils, equal size. NOSE: Clear with pink turbinates. THROAT: No erythema or exudates. NECK: No masses, no JVD. CHEST: No chest wall deformity. LUNGS: Equal air entry with basilar crackles. CVS: S1 and S2 normal with no audible murmur, regular rhythm. ABDOMEN: No hepatosplenomegaly, normal bowel sounds, no guarding or rigidity. SPINE: No scoliosis or deformity SKIN: No rashes CENTRAL NERVOUS SYSTEM: No focal deficits, tone is normal in all 4 extremities. EXTREMITIES: There is no peripheral edema. No clubbing, no cyanosis. Peripheral pulses are intact. - Labs CBC & Chem 7: 08/16/20 07:35 08/16/20 07:35 Labs: Abnormal Lab Results - Last 24 Hours (Table) 08/15/20 08/15/20 08/15/20 Range/Units 11:46 16:53 18:41 WBC (3.8-10.6) k/uL RBC (4.30-5.90) m/uL Hgb (13.0-17.5) gm/dL Hct (39.0-53.0) % MCV (80.0-100.0) fL RDW (11.5-15.5) % Neutrophils # (Manual) (1.3-7.7) k/uL Metamyelocytes # (Man) (0) k/uL Myelocytes # (Manual) (0) k/uL Sodium (137-145) mmol/L Chloride (98-107) mmol/L Carbon Dioxide (22-30) mmol/L BUN (9-20) mg/dL Creatinine (0.66-1.25) mg/dL Glucose (74-99) mg/dL POC Glucose (mg/dL) 153 H 272 H 256 H (75-99) mg/dL Calcium (8.4-10.2) mg/dL Troponin I (0.000-0.034) ng/mL 08/15/20 08/15/20 08/15/20 Range/Units 20:11 20:18 23:50 WBC (3.8-10.6) k/uL RBC (4.30-5.90) m/uL Hgb (13.0-17.5) gm/dL Hct (39.0-53.0) % MCV (80.0-100.0) fL RDW (11.5-15.5) % Neutrophils # (Manual) (1.3-7.7) k/uL Metamyelocytes # (Man) (0) k/uL Myelocytes # (Manual) (0) k/uL Sodium (137-145) mmol/L Chloride (98-107) mmol/L Carbon Dioxide (22-30) mmol/L BUN (9-20) mg/dL Creatinine (0.66-1.25) mg/dL Glucose (74-99) mg/dL POC Glucose (mg/dL) 199 H (75-99) mg/dL Calcium (8.4-10.2) mg/dL Troponin I 5.350 H* 5.640 H* (0.000-0.034) ng/mL 08/16/20 08/16/20 08/16/20 Range/Units 07:08 07:35 07:35 WBC 21.3 H (3.8-10.6) k/uL RBC 3.11 L (4.30-5.90) m/uL Hgb 10.2 L (13.0-17.5) gm/dL Hct 32.5 L (39.0-53.0) % MCV 104.4 H (80.0-100.0) fL RDW 15.6 H (11.5-15.5) % Neutrophils # (Manual) 18.30 H (1.3-7.7) k/uL Metamyelocytes # (Man) 0.43 H (0) k/uL Myelocytes # (Manual) 0.85 H (0) k/uL Sodium 134 L (137-145) mmol/L Chloride 97 L (98-107) mmol/L Carbon Dioxide 18 L (22-30) mmol/L BUN 108 H* (9-20) mg/dL Creatinine 8.27 H* (0.66-1.25) mg/dL Glucose 244 H (74-99) mg/dL POC Glucose (mg/dL) 265 H (75-99) mg/dL Calcium 7.6 L (8.4-10.2) mg/dL Troponin I (0.000-0.034) ng/mL Microbiology - Last 24 Hours (Table) 08/11/20 08:40 Gram Stain - Final Pleural Fluid Body Fluid Culture - Final Assessment and Plan Assessment: 1 Right basilar pneumonia with right parapneumonic effusion, rule out empyema, follow-up chest x-ray showing improvement 2 New-onset atrial fibrillation with rapid ventricular response 3 Bilateral pleural effusions right greater than left, status post right-sided thoracentesis on 08/11/2020 cultures and pathology pending 4 Possible non-ST segment elevation myocardial infarctions 5 History of end-stage renal disease, currently on peritoneal dialysis 6 Diabetes mellitus 7 Hypertension 8 Hyperlipidemia 9 History of coronary disease 10 Hypothyroidism 11 Chronic obstructive pulmonary disease 12 Previous heavy tobacco dependence 13 Anemia of chronic disease 14 Diarrhea, C. diff pending Plan: The patient was seen and evaluated by Dr. Alfaro Discontinue Zosyn Continue bronchodilators Complete a prednisone taper We will continue to follow I, the cosigning physician, performed a history & physical examination of the patient. Lungs sounds with crackles in the posterior bases. Maintaining good O2 saturations in the 90s on room air. I discussed the assessment and plan of care with my nurse practitioner, Evie Dumont. I attest to the above note as dictated by her.
[2020-08-16] MEDS ORDERED: Magnesium Replacement Protocol 1 EACH MISC MISCELLANE PRN (11:40)
[2020-08-16] MEDS ORDERED: MAGNESIUM SULFATE-D5W PMX 1 GM in DEXTROSE/WATER 1 100ML.BAG IVPB SCH (11:45)
[2020-08-16] MEDS: MAGNESIUM SULFATE-D5W PMX 1 GM in DEXTROSE/WATER 1 100ML.BAG IVPB SCH ×2 (11:47→12:26)
[2020-08-16 11:49] LABS: Glucose,Whole Blood 205 mg/dL (75-99)
[2020-08-16] MEDS ORDERED: INSULIN ASPART (NovoLOG) 100 UNIT/ML VIAL SQ SCH (12:30)
[2020-08-16] MEDS ORDERED: MIDODRINE 5 MG TAB PO SCH (12:30)
--- NOTE | 2020-08-16 13:39 | P.PN ---
Subjective Principal diagnosis: Patient is resting in bed He appears mildly short of breath However on telemetry he is experiencing runs of nonsustained torsade On examination he is hypertensive He is on peritoneal dialysis Breath sounds are reduced bilaterally Heart sounds are soft Telemetry shows runs of nonsustained torsade Impression Nonsustained torsade, recurrent Non-Q wave myocardial infarction Chronic renal failure Atrial fibrillation with RVR, chemical conversion Plan Avoid QT prolonging drugs IV magnesium 2 g Stop Zofran I spoke to pharmacy to check for any other QT prolonging drug Stop Imdur Stop Toprol-XL on account of hypertension Prognosis poor I would recommend a DO NOT RESUSCITATE status Objective - Vital Signs Vital signs: Vital Signs Temp 98.2 F 08/16/20 08:00 Pulse 75 08/16/20 12:00 Resp 18 08/16/20 12:00 BP 76/42 08/16/20 12:00 Pulse Ox 96 08/16/20 12:00 Intake & Output 08/15/20 08/16/20 08/16/20 18:59 06:59 18:59 Intake Total 1140 120 720 Output Total 0 920 Balance 1140 -800 720 Weight 97.2 kg Intake: Oral 1140 120 720 Output: Urine 0 0 Stool 0 920 Other: Voiding Method Urinal Urinal Urinal # Voids 2 1 # Bowel Movements 0 3 1 - Labs CBC & Chem 7: 08/16/20 07:35 08/16/20 07:35 Labs: Abnormal Lab Results - Last 24 Hours (Table) 08/15/20 08/15/20 08/15/20 Range/Units 16:53 18:41 20:11 WBC (3.8-10.6) k/uL RBC (4.30-5.90) m/uL Hgb (13.0-17.5) gm/dL Hct (39.0-53.0) % MCV (80.0-100.0) fL RDW (11.5-15.5) % Neutrophils # (Manual) (1.3-7.7) k/uL Metamyelocytes # (Man) (0) k/uL Myelocytes # (Manual) (0) k/uL Sodium (137-145) mmol/L Chloride (98-107) mmol/L Carbon Dioxide (22-30) mmol/L BUN (9-20) mg/dL Creatinine (0.66-1.25) mg/dL Glucose (74-99) mg/dL POC Glucose (mg/dL) 272 H 256 H (75-99) mg/dL Calcium (8.4-10.2) mg/dL Troponin I 5.350 H* (0.000-0.034) ng/mL 08/15/20 08/15/20 08/16/20 Range/Units 20:18 23:50 07:08 WBC (3.8-10.6) k/uL RBC (4.30-5.90) m/uL Hgb (13.0-17.5) gm/dL Hct (39.0-53.0) % MCV (80.0-100.0) fL RDW (11.5-15.5) % Neutrophils # (Manual) (1.3-7.7) k/uL Metamyelocytes # (Man) (0) k/uL Myelocytes # (Manual) (0) k/uL Sodium (137-145) mmol/L Chloride (98-107) mmol/L Carbon Dioxide (22-30) mmol/L BUN (9-20) mg/dL Creatinine (0.66-1.25) mg/dL Glucose (74-99) mg/dL POC Glucose (mg/dL) 199 H 265 H (75-99) mg/dL Calcium (8.4-10.2) mg/dL Troponin I 5.640 H* (0.000-0.034) ng/mL 08/16/20 08/16/20 08/16/20 Range/Units 07:35 07:35 11:47 WBC 21.3 H (3.8-10.6) k/uL RBC 3.11 L (4.30-5.90) m/uL Hgb 10.2 L (13.0-17.5) gm/dL Hct 32.5 L (39.0-53.0) % MCV 104.4 H (80.0-100.0) fL RDW 15.6 H (11.5-15.5) % Neutrophils # (Manual) 18.30 H (1.3-7.7) k/uL Metamyelocytes # (Man) 0.43 H (0) k/uL Myelocytes # (Manual) 0.85 H (0) k/uL Sodium 134 L (137-145) mmol/L Chloride 97 L (98-107) mmol/L Carbon Dioxide 18 L (22-30) mmol/L BUN 108 H* (9-20) mg/dL Creatinine 8.27 H* (0.66-1.25) mg/dL Glucose 244 H (74-99) mg/dL POC Glucose (mg/dL) 205 H (75-99) mg/dL Calcium 7.6 L (8.4-10.2) mg/dL Troponin I (0.000-0.034) ng/mL Microbiology - Last 24 Hours (Table) 08/11/20 08:40 Gram Stain - Final Pleural Fluid Body Fluid Culture - Final
[2020-08-16] MEDS ORDERED: METOPROLOL TARTRATE 12.5 MG TAB PO SCH (13:45)
[2020-08-16] MEDS: DIALYSIS (PERIT 1.5%) 2,500 ML 37.5 G/2,500 ML BAG INTRAPERIT SCH ×3 (14:14→21:58)
[2020-08-16] MEDS ORDERED: DEXTROSE 5% IN WATER 100 ML with AMIODARONE 150 MG IV ONE (15:03)
[2020-08-16] MEDS ORDERED: LORazepam 2 MG/ML INJ IV PRN (15:31)
[2020-08-16] MEDS ORDERED: MORPHINE SULFATE 2 MG/ML SYRINGE IVP PRN (15:31)
--- NOTE | 2020-08-16 15:31 | P.EN ---
A- team: Indication: Sustained v-tach Patient seen and examined at bedside. He denies chest pain, SOB, light headedness, dizziness. Vital signs reviewed General: non toxic, no distress, appears at stated age Derm: warm, dry Head: atraumatic, normocephalic, symmetric Eyes: EOMI, no lid lag, anicteric sclera Mouth: no lip lesion, mucus membranes moist Cardiovascular: S1S2 reg, no murmur, positive posterior tibial pulse bilateral, Lungs: Course bs bilateral, + rhonchi, no rales , + accessory muscle us Psych:Aletr,oriented,appropriate affect Assessment/Plan: V-tach sustained - d/w Dr. Gallardo he has already received magnesium, start amio, he is concerned that this is a malignant rhythm due to his ischemic heart disease - D/W patient and family at length ( and daughter Joya) Patient has elected to be a DNR - no shock, no ACLS medications, no intubation. Will proceed with current medications, with DNR status will continue to monitor on 3S. A Total of 25 minutes of critical care time was spent on the complex care of this patient.
[2020-08-16] MEDS ORDERED: AMIODARONE 360 MG in DEXTROSE 5% IN WATER 200 ML IV ONE ×2 (15:40)
[2020-08-16] MEDS: MIDODRINE 5 MG TAB PO SCH (17:38)
[2020-08-16] MEDS: ATORVASTATIN 80 MG TAB PO SCH (20:36)
[2020-08-16] MEDS ORDERED: INSULIN DETEMIR (LEVEMIR) 100 UNIT/ML SYR SQ SCH (21:00)
[2020-08-16] MEDS: AMIODARONE 450 MG in DEXTROSE 5% IN WATER 250 ML IV SCH ×2 (22:07)
[2020-08-17] MEDS ORDERED: chlorproMAZINE 25 MG TAB PO PRN (01:37)
[2020-08-17] MEDS: DIALYSIS (PERIT 1.5%) 2,500 ML 37.5 G/2,500 ML BAG INTRAPERIT SCH ×4 (01:53→17:29)
[2020-08-17] MEDS ORDERED: METOCLOPRAMIDE 5 MG/ML 2 ML VIAL IVP PRN (02:07)
[2020-08-17] MEDS: MIDODRINE 5 MG TAB PO SCH ×3 (06:57→16:53)
[2020-08-17] MEDS: PANTOPRAZOLE 40 MG TABLET PO SCH ×2 (06:58→16:40)
[2020-08-17] MEDS: SEVELAMER 800 MG TAB PO SCH ×3 (06:58→16:41)
[2020-08-17] MEDS: LEVOTHYROXINE 25 MCG TAB PO SCH (06:58)
[2020-08-17 07:12] LABS: HCT 27.8 % (39.0-53.0); HGB 9.4 gm/dL (13.0-17.5); MCHC 33.7 g/dL (31.0-37.0); Macrocytosis Slight; Mean Platelet Volume 7.9; Platelet Count 255 k/uL (150-450); RBC 2.75 m/uL (4.30-5.90); RDW 15.2 % (11.5-15.5); WBC 22.7 k/uL (3.8-10.6)
[2020-08-17 07:24] LABS: Calcium 7.3 mg/dL (8.4-10.2); Magnesium 2.5 mg/dL (1.6-2.3)
[2020-08-17 07:32] LABS: Potassium 3.4 mmol/L (3.5-5.1)
[2020-08-17] MEDS ORDERED: POTASSIUM CHLORIDE ER 20 MEQ TAB.ER PO STA (08:40)
[2020-08-17] MEDS: ASPIRIN 81 MG PO SCH (08:46)
[2020-08-17] MEDS: HEPARIN SODIUM,PORCINE/PF 5,000 UNIT/0.5 ML SYRINGE SQ SCH ×2 (08:46→16:39)
[2020-08-17] MEDS: DOCUSATE 100 MG CAP PO SCH (08:47)
[2020-08-17] MEDS: CLOPIDOGREL 75 MG TAB PO SCH (08:47)
[2020-08-17] MEDS: FAMOTIDINE 20 MG TAB PO SCH (08:47)
[2020-08-17] MEDS: predniSONE 20 MG TAB PO SCH (08:47)
[2020-08-17] MEDS: IPRATROPIUM-ALBUTEROL 3 ML NEB INHALATION SCH ×4 (09:15→18:53)
[2020-08-17] MEDS: SYMBICORT 160-4.5 MCG INHALER INHALATION SCH ×2 (09:15→18:53)
--- NOTE | 2020-08-17 09:28 | P.PN ---
Subjective Patient is seen in follow-up for end-stage renal disease. He is maintained on peritoneal dialysis. No constipation. No issues with dialysis. Blood pressure is stable this morning. Patient and family considering home hospice. Vital signs are stable. General: The patient appeared well nourished and normally developed. HEENT: Head exam is unremarkable. On nasal cannula. LUNGS: Breath sounds decreased. HEART: Rate and Rhythm are regular. ABDOMEN: Soft, no distention. EXTREMITITES: Trace edema. Objective - Vital Signs Vital signs: Vital Signs Temp 97.9 F 08/17/20 06:00 Pulse 64 08/17/20 09:25 Resp 18 08/17/20 08:00 BP 106/46 08/17/20 08:00 Pulse Ox 96 08/17/20 08:00 Intake & Output 08/16/20 08/17/20 08/17/20 18:59 06:59 18:59 Intake Total 720 240 Output Total 920 Balance -200 240 Weight 102.5 kg Intake: Oral 720 240 Output: Stool 920 Other: Voiding Method Urinal Urinal # Voids 0 # Bowel Movements 1 1 - Labs CBC & Chem 7: 08/17/20 06:39 08/17/20 06:39 Labs: Abnormal Lab Results - Last 24 Hours (Table) 08/16/20 08/16/20 08/17/20 Range/Units 07:35 11:47 06:39 WBC (3.8-10.6) k/uL RBC (4.30-5.90) m/uL Hgb (13.0-17.5) gm/dL Hct (39.0-53.0) % MCV (80.0-100.0) fL Neutrophils # (Manual) 18.30 H (1.3-7.7) k/uL Metamyelocytes # (Man) 0.43 H (0) k/uL Myelocytes # (Manual) 0.85 H (0) k/uL Sodium 133 L (137-145) mmol/L Potassium 3.4 L (3.5-5.1) mmol/L Chloride 97 L (98-107) mmol/L Carbon Dioxide 20 L (22-30) mmol/L BUN 108 H* (9-20) mg/dL Creatinine 8.38 H* (0.66-1.25) mg/dL Glucose 151 H (74-99) mg/dL POC Glucose (mg/dL) 205 H (75-99) mg/dL Calcium 7.3 L (8.4-10.2) mg/dL Magnesium 2.5 H (1.6-2.3) mg/dL 08/17/20 Range/Units 06:39 WBC 22.7 H (3.8-10.6) k/uL RBC 2.75 L (4.30-5.90) m/uL Hgb 9.4 L (13.0-17.5) gm/dL Hct 27.8 L (39.0-53.0) % MCV 101.0 H (80.0-100.0) fL Neutrophils # (Manual) (1.3-7.7) k/uL Metamyelocytes # (Man) (0) k/uL Myelocytes # (Manual) (0) k/uL Sodium (137-145) mmol/L Potassium (3.5-5.1) mmol/L Chloride (98-107) mmol/L Carbon Dioxide (22-30) mmol/L BUN (9-20) mg/dL Creatinine (0.66-1.25) mg/dL Glucose (74-99) mg/dL POC Glucose (mg/dL) (75-99) mg/dL Calcium (8.4-10.2) mg/dL Magnesium (1.6-2.3) mg/dL Assessment and Plan Plan: Assessment: 1. End-stage renal disease maintained on peritoneal dialysis. 2. Elevated BUN secondary to chronic kidney disease as well as steroids. 3. Anemia of chronic kidney disease maintained on Aranesp. 4. Diabetes mellitus. 5. Chronic kidney disease mineral bone disease maintained on Renvela. 6. Pneumonia maintained on antibiotics. Status post thoracentesis this admission. 7. Non-ST elevated myocardial infarction. Ejection fraction 35-40%. 8. Hypokalemia from poor intake and PD losses. Plan: Maintain current peritoneal dialysis exchanges. Maintain midodrine. Replace potassium. Case discussed with the patient and his family. Patient wishes to go home. Home hospice being considered.
--- NOTE | 2020-08-17 11:33 | P.PN ---
Subjective Progress Note Date: 08/17/20 Principal diagnosis: Shortness of breath, right-sided pleural effusion. Pulmonary consult dated 08/10/2020. 74-year-old male, transferred over to the hospital, from [facility] per family request. The patient was initially taken to [facility], and then transferred to [facility] on August 02. He apparently been feeling poorly for a couple days or so or maybe a bit longer, prior to admission, with complaints of difficulty breathing, fever, and right-sided chest pain. The patient was initially seen at [facility], and epstein sferred down to [facility]. Yesterday, was notified by one of his daughters who is a nurse, that the family wanted the patient transferred down to [facility]. The patient was transferred yesterday. According to one of the daughters, the patient was needing to have a thoracentesis. Apparently there was a date from pulmonary services and interventional radiology, in terms of who should do the thoracentesis. Anyway, it was apparently frustrating to the family and the patient was transferred here. The patient is to have a thoracentesis performed by interventional radiology here today. White count 20.6, hemoglobin 8.6, hematocrit 26.3, and platelet count 251,000. PT INR are normal. Sodium 136, potassium 4.9, chlorides 92, CO2 25, anion gap 19, BUN 119, and creatinine 8.58. Chest x-ray and ultrasound of the right chest are reviewed. In addition, we added some Solu-Medrol, DC his Symbicort in favor of Pulmicort and formoterol, and added stronger antibiotics including Zosyn and vancomycin. Progress note dated 08/11/2020. 74-year-old male transferred from [facility]. The patient underwent a right-sided thoracentesis today by myself. 400 mL of bloody fluid was removed from the right pleural space. The follow-up chest x-ray looks much better. There is no obvious pneumothorax. Currently, the patient's on a couple liters of nasal O2. He apparently did develop spontaneous atrial fibrillation with RVR this morning. He was placed on amiodarone drip. Cardiology is going to see the patient but apparently did not want IV heparin at this time. The patient's currently on Zosyn and vancomycin. He was seen yesterday in consultation. Sodium 136, potassium 4.8, chlorides 94, CO2 21, anion gap 21, BUN 116, and creatinine 8.14. The patient is seen today 08/12/2020 in follow-up on the selective care unit. He is currently sitting up at the bedside. Awake and alert in no acute distress. Maintaining O2 saturations in the 90s on room air. Afebrile. Hemodynamically stable. CAT scan had revealed bilateral pleural effusions right greater than left some of which appeared loculated. He did undergo a thoracente sis on the right with 400 mL returned. Fluid analysis positive for exudate. Pathology pending. Cultures pending. He remains on DuoNeb inhalations, Pulmicort and Perforomist inhalations, IV Solu-Medrol. Currently on antibiotics in the form of Zosyn and vancomycin. The patient is seen today 08/13/2020 in follow-up on the selective care unit. Currently sitting up in a chair. Awake and alert in no acute distress. Denies any worsening shortness of breath, cough or congestion. No fever, chills or night sweats. 18 O2 saturations in the 90s on room air. He's been afebrile. Hemodynamically stable. Follow-up chest x-ray reveals improved bibasilar airspace disease. Pleural fluid cultures are revealing no growth thus far. Pathology pending. White count 26.5. Hemoglobin 9.1. MCV 100.7. Sodium 136. Potassium 4.4. BUN 102. Creatinine 8.38. Remains on bronchodilators, IV diuretics, IV Solu-Medrol, Zosyn. Progress note dated 08/14/2020. Currently, the patient's doing well. Room air saturation is 94%. Temperature normal. Heart rate 74, respiratory rate 19, blood pressure 106/64. Laboratory data includes a white count of 23.4, hemoglobin 9.7, hematocrit 28.9, and platelet count of 316,000. Microbiologic sampling is normal. Currently, the patient's doing well. He states that his breathing is much improved. He still is weak. May need some in-house rehab. Progress note dated 08/15/2020. The patient continues to do well. His room air saturations are in the mid 90s. His vital signs are stable. He still is quite weak. Apparently the family has decided to do in-home physical therapy and rehabilitation. Current vital signs are stable. He is afebrile, with a heart rate of 92 bpm, respiratory rate 18, blood pressure 118/59, and a room air saturation of 98%. Labs today include a white count of 20.9, hemoglobin 9.8, hematocrit 31.3, and a platelet count of 327,000. Sodium 133, potassium 3.9, chlorides 91, CO2 26, anion gap 16, BUN 111, creatinine 8.39. Progress note dated 08/16/2020. 74-year-old male, with a history of multiple medical problems. Yesterday, he was apparently having runs of ventricular tachycardia. I was called by the hospitalist, to asked whether or not we can move the patient into the intensive care unit. I agreed. Unfortunately, the family and the patient has decided to go home with hospice. Currently, the patient is on amiodarone at 0.5 mg/m. He is getting nasal O2 at 2 L. Both daughters are in the room today we went into the room to see him. Lab data today includes a white count of 22.7, hemoglobin 9.4, hematocrit 27.8, and a platelet count of 255,000. Sodium is 133, potassium 3.4, chlorides 97, CO2 20, anion gap 16, BUN 108, and creatinine 8.38. Objective - Vital Signs Vital signs: Vital Signs Temp 97.9 F 08/17/20 06:00 Pulse 64 08/17/20 09:25 Resp 18 08/17/20 08:00 BP 106/46 08/17/20 08:00 Pulse Ox 96 08/17/20 08:00 Intake & Output 08/16/20 08/17/20 08/17/20 18:59 06:59 18:59 Intake Total 720 240 Output Total 920 Balance -200 240 Weight 102.5 kg Intake: Oral 720 240 Output: Stool 920 Other: Voiding Method Urinal Urinal # Voids 0 # Bowel Movements 1 1 - Exam No respiratory distress, oriented 3. Currently on 2 L saturations in the mid 90s. HEENT examination is grossly unremarkable. Neck supple. Full range of motion. No adenopathy thyromegaly or neck vein distention. Cardiovascular examination reveals regular rhythm rate. S1-S2 normal. No S3 or S4. No discernible murmur noted. Heart sounds are distant. Heart rate 64 bpm. Lungs reveal mild scattered rhonchi at the right base. No wheezes or crackles. Breath sounds otherwise normal. Abdomen soft bowel sounds are heard. No masses or tenderness. Extremities are intact. No cyanosis clubbing or edema. Skin is without rash or lesion. Neurologic examination is brief but nonfocal. - Labs CBC & Chem 7: 08/17/20 06:39 08/17/20 06:39 Labs: Abnormal Lab Results - Last 24 Hours (Table) 08/16/20 08/17/20 08/17/20 Range/Units 11:47 06:39 06:39 WBC 22.7 H (3.8-10.6) k/uL RBC 2.75 L (4.30-5.90) m/uL Hgb 9.4 L (13.0-17.5) gm/dL Hct 27.8 L (39.0-53.0) % MCV 101.0 H (80.0-100.0) fL Sodium 133 L (137-145) mmol/L Potassium 3.4 L (3.5-5.1) mmol/L Chloride 97 L (98-107) mmol/L Carbon Dioxide 20 L (22-30) mmol/L BUN 108 H* (9-20) mg/dL Creatinine 8.38 H* (0.66-1.25) mg/dL Glucose 151 H (74-99) mg/dL POC Glucose (mg/dL) 205 H (75-99) mg/dL Calcium 7.3 L (8.4-10.2) mg/dL Magnesium 2.5 H (1.6-2.3) mg/dL Assessment and Plan Assessment: Right basilar pneumonia with a right parapneumonic effusion, rule out empyema. New onset fibrillation with RVR, currently on amiodarone. Also, more recently, runs of ventricular tachycardia. Status post right-sided thoracentesis, with 400 mL of bloody fluid removed and sent to laboratory for analysis. Possible NSTEMI. History of end-stage renal disease, currently on peritoneal dialysis. History of diabetes mellitus. History of hyperlipidemia. History of hypertension. History of coronary artery disease. History of hypothyroidism. History of COPD from previous heavy tobacco use. Anemia of chronic disease. Plan: Plan dated 08/10/2020. The patient's updrafts were changed to him. Also think and ipratropium bromide, 4 times a day and when necessary. In addition, we discontinued Symbicort, and fever up Pulmicort 1 mg, mixed with formoterol, 20 g, twice a day. In addition, we discontinued prednisone in favor of Solu-Medrol. Finally, we stopped the ceftriaxone and started the patient on Zosyn and vancomycin. The patient is to have a thoracentesis performed by interventional radiology today. We'll send it for chemistry including LDH, protein, glucose, cytology, and microbiology. Additional recommendations and suggestions are forthcoming. Prognosis is guarded. Plan dated 08/11/2020. Currently, the patient appears to be a bit better following the thoracentesis. His atrial fibrillation spontaneously O went back into normal sinus rhythm. He was placed on amiodarone by IV infusion. Cardiology did not want IV heparin at this time. The fluid analysis will be done and hopefully help us determine what's going on in his right chest area. 400 mL of bloody fluid was withdrawn during the right thoracentesis. The patient tolerated procedure well. There is no postprocedure pneumothorax. The patient continues on antibiotics. Prognosis is guarded. He is currently on 3 L. Saturations are 92-93%. Plan dated 08/14/2020. Currently, the patient looks much improved. His been weaned down to room air. The patient is not receiving any IV fluids. His vital signs are otherwise sta ble. Currently, all microbiology is negative. The patient remains on Zosyn, prednisone, albuterol sulfate, ipratropium bromide, Pulmicort, and formoterol. Additional recommendations and suggestions are forthcoming. The patient is not quite ready for discharge. We will continue to follow make recommendations where appropriate. Plan dated 08/15/2020. Currently, the patient's doing much better. Patient has been weaned off of oxygen therapy. Patient's on prednisone 40 mg a day and continues on Zosyn. Microbiology is thus far negative. The patient is weak. The plan I believe is discharged to home with in-home rehab/physical therapy. We will continue to follow make recommendations were appropriate. I have been keeping the family updated. Plan dated 08/17/2020. Yesterday, the plan was to move the patient to the intensive care unit because of the ventricular tachycardia. The patient did receive some magnesium yesterday by the form setter steel forms. The patient remains on amiodarone 0.5 mg/m. The patient's on 2 L. Apparently more recently, the family has decided to take the patient home, for home hospice. They will continue with peritoneal dialysis for the moment. Additional recommendations and suggestions are forthcoming. We'll continue to follow. Because of diarrhea, antibiotics were discontinued. Time with Patient: Less than 30
--- NOTE | 2020-08-17 12:44 | P.PN ---
Subjective Patient is resting in bed. Mildly short of breath at rest His episodes of torsade have resolved but he continues to have frequent PVCs His blood pressure is better is 100 mmHg systolic today Breath sounds are equal air entry bilaterally reduced at bases occasional crackles Heart sounds S1 and S2 are soft Impression Non-Q wave myocardial infarction Chronic kidney disease on dialysis, peritoneal dialysis Nonsustained runs of PMVT, recurrent, treated with magnesium discontinuation of QT prolonging drugs Patient is on amiodarone Plan Switch to oral amiodarone tomorrow, 200 milligrams twice a day for one month and then 200 mg by mouth daily line Imdur was made. Beta blockers are on hold Once his blood pressure improves, low-dose beta blockers would be indicated Objective - Vital Signs Vital signs: Vital Signs Temp 98.4 F 08/17/20 12:26 Pulse 62 08/17/20 12:38 Resp 18 08/17/20 12:26 BP 130/64 08/17/20 12:26 Pulse Ox 96 08/17/20 12:26 Intake & Output 08/16/20 08/17/20 08/17/20 18:59 06:59 18:59 Intake Total 720 240 Output Total 920 Balance -200 240 Weight 102.5 kg Intake: Oral 720 240 Output: Stool 920 Other: Voiding Method Urinal Urinal # Voids 0 # Bowel Movements 1 1 - Labs CBC & Chem 7: 08/17/20 06:39 08/17/20 06:39 Labs: Abnormal Lab Results - Last 24 Hours (Table) 08/17/20 08/17/20 Range/Units 06:39 06:39 WBC 22.7 H (3.8-10.6) k/uL RBC 2.75 L (4.30-5.90) m/uL Hgb 9.4 L (13.0-17.5) gm/dL Hct 27.8 L (39.0-53.0) % MCV 101.0 H (80.0-100.0) fL Sodium 133 L (137-145) mmol/L Potassium 3.4 L (3.5-5.1) mmol/L Chloride 97 L (98-107) mmol/L Carbon Dioxide 20 L (22-30) mmol/L BUN 108 H* (9-20) mg/dL Creatinine 8.38 H* (0.66-1.25) mg/dL Glucose 151 H (74-99) mg/dL Calcium 7.3 L (8.4-10.2) mg/dL Magnesium 2.5 H (1.6-2.3) mg/dL
--- NOTE | 2020-08-17 13:47 | P.PN ---
Subjective Progress Note Date: 08/17/20 Patient was seen and examined at the bedside on 08/17. He reports continued loose stools but denied any additional episodes of dizziness. Reports no changes in his breathing. Denied chest discomfort. Also denied fever, chills, abdominal pain. Discussed the case in detail with the patient and family at the bedside who noted that the patient wishes to go home with home hospice along with a hospital bed. Hospice consult was placed and the patient is waiting to receive a hospital bed prior to discharge, which will likely be completed by tomorrow. Objective - Vital Signs Vital signs: Vital Signs Temp 98.7 F 08/17/20 13:00 Pulse 64 08/17/20 13:00 Resp 18 08/17/20 13:00 BP 122/68 08/17/20 13:00 Pulse Ox 96 08/17/20 13:00 Intake & Output 08/16/20 08/17/20 08/17/20 18:59 06:59 18:59 Intake Total 720 240 Output Total 920 Balance -200 240 Weight 102.5 kg Intake: Oral 720 240 Output: Stool 920 Other: Voiding Method Urinal Urinal # Voids 0 # Bowel Movements 1 1 - Exam General: Chronically Ill-appearing male, in no acute distress, appears stated age, obese HEENT: NC/AT, anicteric sclerae, moist conjunctiva, no lid-lag, PERRLA Cardiovascular: S1/S2 wnl, no murmurs, rubs, or gallops Lungs: Bilateral rhonchi, normal respiratory effort, no accessory muscle use Abdominal: Soft, non-tender, non-distended, no guarding, rebound, or rigidity Skin: Warm, dry Extremities: No edema or contractures Psychiatric: Alert and oriented to person, place and time, appropriate affect Neuro: CN II-XII grossly intact, no focal neuro deficits noted - Labs CBC & Chem 7: 08/17/20 06:39 08/17/20 06:39 Labs: Abnormal Lab Results - Last 24 Hours (Table) 08/17/20 08/17/20 Range/Units 06:39 06:39 WBC 22.7 H (3.8-10.6) k/uL RBC 2.75 L (4.30-5.90) m/uL Hgb 9.4 L (13.0-17.5) gm/dL Hct 27.8 L (39.0-53.0) % MCV 101.0 H (80.0-100.0) fL Sodium 133 L (137-145) mmol/L Potassium 3.4 L (3.5-5.1) mmol/L Chloride 97 L (98-107) mmol/L Carbon Dioxide 20 L (22-30) mmol/L BUN 108 H* (9-20) mg/dL Creatinine 8.38 H* (0.66-1.25) mg/dL Glucose 151 H (74-99) mg/dL Calcium 7.3 L (8.4-10.2) mg/dL Magnesium 2.5 H (1.6-2.3) mg/dL Assessment and Plan Plan: Newly discovered systolic cardiomyopathy - EF 35-40% - cardio recs appreciated - continue with lopressor with parameters - off lasix -no ACEI due to hypotension, patient was on cozzar at home but no BB Episodes of NSVT -Cardiology recs appreciated -Patient currently on amiodarone infusion with plan to switch to oral tomorrow, as per cardiology Hypotension - stopped lasix, lisinopril stopped - midodrine added by nephro Diarrhea - d/w pulm and abx stopped - c diff uncollected, recollection ordered stat Pneumonia, possible gram negatives with loculated pleural effusion status post thoracentesis on 08/11 -Pulmonary recommendations appreciated -Pulmonary hygiene -Continue with bronchodilators -steroids being weaned. Diabetes mellitus type 2 with hyperglycemia - Decrease levemir and fixed dose insulin for changes in dextrose content of dialisylate, continue with sliding scale - on discharge home to convert to once daily lantus, and possible fixed dose -Follow blood sugars End-stage renal disease on PD -Nephrology recommendations -Awaiting new dialysalate at home Non-ST segment elevated myocardial infarction -Cardiology recommendations -Continue aspirin, Plavix, Lipitor, Lopressor Anemia of chronic disease, stable - follow CBC Chronic conditions: Hypertension, dyslipidemia, hypothyroidism, COPD DVT prophylaxis -Heparin Discussed with: Patient, daughter, Anticipated discharge date: Home w/ home hospice Anticipated discharge place: in am A total of 35 minutes was spent on the care of this complex patient more than 50% of the time was spent in counseling and care coordination.
[2020-08-17] MEDS: AMIODARONE 450 MG in DEXTROSE 5% IN WATER 250 ML IV SCH ×2 (15:14)
[2020-08-17] MEDS ORDERED: AMIODARONE 450 MG in DEXTROSE 5% IN WATER 250 ML IV SCH ×2 (16:00)
[2020-08-17 16:36] VITALS: BP 122/57; PULSE 67; TEMP 98.2
[2020-08-17] MEDS: DARBEPOETIN ALFA 60 MCG/0.3 ML SYRINGE SQ SCH (16:39)
== END 2020-08-17 18:58 | disposition hospice, home (50) | DRG 280 ==
LOC: 3SCARD 17:27
PROVIDERS: ADMIT Internal Medicine; ATTEND Internal Medicine
PROC: 5A1D70Z Performance of Urinary Filtration, Intermittent, Less than 6 Hours Per Day (ICD-10-PCS; 2020-08-10)
PROC: 0W993ZZ Drainage of Right Pleural Cavity, Percutaneous Approach (ICD-10-PCS; principal; 2020-08-11 14:00)
DX: I21.4 Non-ST elevation (NSTEMI) myocardial infarction (principal); J18.9 Pneumonia, unspecified organism; N18.6 End stage renal disease; J96.01 Acute respiratory failure with hypoxia; J44.1 Chronic obstructive pulmonary disease with (acute) exacerbation; J44.0 Chronic obstructive pulmonary disease with (acute) lower respiratory infection; I13.2 Hypertensive heart and chronic kidney disease with heart failure and with stage 5 chronic kidney disease, or end stage renal disease; Q61.3 Polycystic kidney, unspecified; I42.9 Cardiomyopathy, unspecified; I47.2 Ventricular tachycardia; E11.22 Type 2 diabetes mellitus with diabetic chronic kidney disease; E78.5 Hyperlipidemia, unspecified; Z99.2 Dependence on renal dialysis; Y95 Nosocomial condition; Z79.4 Long term (current) use of insulin; Z79.890 Hormone replacement therapy; E03.9 Hypothyroidism, unspecified; D63.1 Anemia in chronic kidney disease; M19.90 Unspecified osteoarthritis, unspecified site; Z66 Do not resuscitate; Z51.5 Encounter for palliative care; Z86.79 Personal history of other diseases of the circulatory system; Z87.891 Personal history of nicotine dependence; Z79.82 Long term (current) use of aspirin; I48.0 Paroxysmal atrial fibrillation; E11.65 Type 2 diabetes mellitus with hyperglycemia; E11.51 Type 2 diabetes mellitus with diabetic peripheral angiopathy without gangrene; I95.9 Hypotension, unspecified; R19.7 Diarrhea, unspecified; E11.40 Type 2 diabetes mellitus with diabetic neuropathy, unspecified; E87.6 Hypokalemia; I25.10 Atherosclerotic heart disease of native coronary artery without angina pectoris; I49.3 Ventricular premature depolarization; I50.9 Heart failure, unspecified; M89.8X9 Other specified disorders of bone, unspecified site; M89.9 Disorder of bone, unspecified; R13.10 Dysphagia, unspecified; T38.0X5A Adverse effect of glucocorticoids and synthetic analogues, initial encounter; Z79.52 Long term (current) use of systemic steroids; Z79.899 Other long term (current) drug therapy; Z86.19 Personal history of other infectious and parasitic diseases
CPT/HCPCS: 36410; 71045; 71275; 76604; 80048; 80053; 80202; 82945; 83036; 83615; 83735; 84157; 84484; 85025; 85027; 85610; 87070; 87102; 87116; 87205; 87206; 87252; 87496; 87498; 87502; 87529; 87634; 87798; 88108; 88305; 89050; 93306; 94640; 94760